=== PATIENT | female | born 1965 | race Caucasian/White ===

== ENCOUNTER → 2016-11-08 | Outpatient (CLI) | payer OTHER ==
[~2016-11-08] MED LIST: ASPI81TA28 PO; BUSP15TA70 PO; CITA40TA12 PO; CYAN10004 PO; DORZ1SOL6 OPL; INSDGI SC; INSUINJ14 SC; LISI10TA PO; METO50TA16 PO; MULT-506 PO; OMEG10007 PO; PRED1SUS3 OPL
[2016-11-08 13:11] LABS: ESTIMATED AVERAGE GLUCOSE 309 mg/dl; HA1C FLAG Normal (Normal)
[2016-11-08 13:16] LABS: ALT/SGPT 87 U/L (12-78); AST/SGOT 59 U/L (15-37); BLOOD UREA NITROGEN 17 mg/dl (7-18); BUN/CREATININE RATIO 24.6 (10-20); CALCIUM 8.5 mg/dl (8.5-10.1); CARBON DIOXIDE 27 mmol/L (21-32); CHLORIDE 104 mmol/L (98-107); GLUCOSE 212 mg/dl (70-99); POTASSIUM 4.1 mmol/L (3.5-5.1); SODIUM 139 mmol/L (136-145)
[2016-11-08 13:19] LABS: ALB/GLOB RATIO 0.7 (0.9-2); ALKALINE PHOSPHATASE 217 U/L (45-117); CHOLESTEROL 207 mg/dl (0-200); CHOLESTEROL/HDL RATIO 6.3; HDL CHOLESTEROL 33 mg/dl; TRIGLYCERIDES 577 mg/dl (0-150)
== END | disposition home or self-care (01) ==
LOC: C.LABPVFM 09:29
PROVIDERS: ATTEND Family Medicine
DX: I10 Essential (primary) hypertension (principal); E10.65 Type 1 diabetes mellitus with hyperglycemia

== ENCOUNTER → 2016-11-17 | Outpatient (CLI) | payer OTHER | END | disposition home or self-care (01) | LOC: C.LABPVFM 09:58 | PROVIDERS: ATTEND Family Medicine | DX: R74.8 Abnormal levels of other serum enzymes (principal) ==

== ENCOUNTER 2017-06-29 12:20 | Inpatient (IN) | payer OTHER ==
[2017-06-29] VITALS (37 sets, daily range): BP systolic 73–132; BP diastolic 50–97; PULSE 88–103; TEMP 36.4–37; O2SAT 2–100; BMI 30.5
[~2017-06-29] VITALS: Ht 160 cm; Wt 79.6 kg
[2017-06-29] MEDS ORDERED: SODIUM CHLORIDE 0.9% 1000ML 1,000 ML IV STA (12:31)
[2017-06-29] MEDS ORDERED: ASPIRIN 324 MG CHEW ONE (12:36)
[2017-06-29] MEDS ORDERED: LISI-725 PO (12:37)
[2017-06-29] MEDS ORDERED: CLOPIDOGREL BISULFATE 300 MG TAB PO ONE (12:37)
[2017-06-29] MEDS ORDERED: NVLGI/PEN SC (12:38)
[2017-06-29] MEDS ORDERED: INSDGI SC (12:38)
[2017-06-29] MEDS ORDERED: MIDAZOLAM HCL 1 MG/ML 2ML VIAL ONE ×4 (12:39→15:33)
[2017-06-29] MEDS ORDERED: FENTANYL CITRATE INJ 50 MCG/1 ML 2 ML VIAL ONE (12:39)
[2017-06-29] MEDS ORDERED: HEPARIN SOD (PORCINE) 1000 UNIT/ML 10 ML VIAL ONE ×2 (12:40→15:14)
[2017-06-29] MEDS ORDERED: NiCARDipine HCL INJ 2.5 MG/ML 10 ML AMP ONE (12:40)
[2017-06-29] MEDS ORDERED: NITROGLYCERIN/D5W 100MCG/ML 20ML SYR ONE (12:42)
[2017-06-29] MEDS ORDERED: NITROGLYCERIN 0.4 MG SL PER TAB CHARGE SL PRN (12:45)
--- NOTE | 2017-06-29 13:14 | DIAGNOSTIC IMAGING REPORT ---
CHEST ONE VIEW PORTABLE CLINICAL HISTORY: Atypical chest pain COMPARISON STUDY: Chest CT dated 09/04/2011 FINDINGS: The heart is normal in size. There are no pleural effusions. There is no lobar consolidation. There is reticulonodular interstitial thickening. IMPRESSION: 1. Interval development of reticulonodular interstitial thickening. This could either be inflammatory, or secondary to mild interstitial pulmonary edema. Clinical and radiographic follow-up is recommended Electronically signed by: Teddy Lynn M.D. 06/29/2017 1:12 PM Dictated Date/Time: 06/29/2017 12:49 PM
[2017-06-29 13:20] LABS: BASO % 0.1 %; BASO ABS # 0.01 K/uL (0-0.2); COMPLETE YES; EOS % 0.7 %; HEMATOCRIT 39.1 % (37-47); IG% 0.4 %; LYMPH % 18.4 %; LYMPH ABS # 2.24 K/uL (1.2-3.4); MEAN CELL VOLUME 94.4 fL (80-100); MEAN CORPUSCULAR HEMOGLOBIN 32.6 pg (25-34); MEAN CORPUSCULAR HGB CONC 34.5 g/dl (32-36); MEAN PLATELET VOLUME 10.3 fL (7.4-10.4); MONO % 4.6 %; NEUT % 75.8 %; PLATELET COUNT 400 K/uL (130-400); RED BLOOD COUNT 4.14 M/uL (4.2-5.4)
[2017-06-29 13:41] LABS: BUN/CREATININE RATIO 25.9 (10-20); CALCIUM 8.8 mg/dl (8.5-10.1); CREATININE 1.11 mg/dl (0.60-1.20); POTASSIUM 4.9 mmol/L (3.5-5.1)
[2017-06-29 13:52] LABS: CKMB/CK RATIO 4.2 (0-3.0)
[2017-06-29] MEDS ORDERED: DOPamine 400MG / 250ML D5W ONE (13:53)
[2017-06-29] MEDS ORDERED: FUROSEMIDE 40 MG/4 ML VIAL ONE (14:19)
[2017-06-29] MEDS ORDERED: ONDANSETRON INJ 2 MG/ML 2 ML VIAL ONE (14:19)
[2017-06-29] MEDS ORDERED: NOREPINEPHRINE BITARTRATE 1 MG/ML 4 ML VIAL IV ONE (14:23)
[2017-06-29] MEDS ORDERED: PROMETHAZINE HCL INJ 25 MG/ML 1 ML VIAL ONE (14:35)
[2017-06-29] MEDS ORDERED: DiphenhydrAMINE HCL 50 MG/ML VIAL ONE (15:23)
[2017-06-29 15:41] LABS: ISTAT ARTERIAL BLOOD GAS HCO3 22 meq/L (19-24); ISTAT ARTERIAL BLOOD GAS PCO2 51 mmHg (35-46); ISTAT ARTERIAL BLOOD GAS PO2 37 mmHg (80-95); ISTAT ARTERIAL BLOOD GAS pH 7.24 (7.35-7.45); ISTAT CARBON DIOXIDE 23 mEq/l (24-31)
[2017-06-29 15:41] LABS: ISTAT ARTERIAL BLOOD GAS HCO3 21 meq/L (19-24); ISTAT ARTERIAL BLOOD GAS PCO2 42 mmHg (35-46); ISTAT ARTERIAL BLOOD GAS PO2 112 mmHg (80-95); ISTAT CARBON DIOXIDE 22 mEq/l (24-31)
[2017-06-29] MEDS ORDERED: ACETAMINOPHEN 325 MG TAB PO PRN (16:30)
[2017-06-29] MEDS ORDERED: ICU PROTOCOL FOR HYPERGLYCEMIA PRN (16:30)
[2017-06-29] MEDS ORDERED: TICAGRELOR 90 MG TAB PO ONE (17:30)
--- NOTE | 2017-06-29 17:38 | EMERGENCY ROOM VISIT NOTE ---
History Report prepared by Ashia: Zack Jacob Under the Supervision of: Dr. Robin Hoskins D.O. First contact with patient: 12:15 Chief Complaint: CHEST PAIN Stated Complaint: CHEST PAIN History of Present Illness The patient is a 52 year old female who presents to the Emergency Room with complaints of constant pinpoint, sharp chest pain that began 9 hours ago. She adds that the symptoms are alleviated when she sleeps on her side and when she is sitting or standing up. Symptoms are exacerbated when pressure is applied. Patient has had two previous cardiac stents placed, both of which were placed in 2005 (LAD and RCA). Patient has associated symptoms of shortness of breath on exertion, pain on the right side, and headache that began 1 day ago. She adds that she had constant ear pain for the past couple days. Pt denies change in vision, fevers, nausea, vomiting, diarrhea, pain with urination, and melena. She states that symptoms are the same as her past cardiac episodes. She states that the shortness of breath is minimal right now. Patient adds that she has no previous brain bleeds or recent surgeries. The patient had an echocardiogram in 2005 which showed normal LV wall thickness , an EF of 25%, and multiple segment hypokinesis all consistent with ischemic heart disease. Source of History: patient Onset: 9 hours ago Position: chest Quality: sharp (Pinpoint) Timing: constant Associated Symptoms: + headache, + SOB, No nausea, No vomiting, No melena, No diarrhea, No urinary symptoms Note: Patient has pain on right side. Review of Systems See HPI for pertinent positives & negatives. A total of 10 systems reviewed and were otherwise negative. Past Medical & Surgical Medical Problems: (1) Anemia (2) Cellulitis and abscess of toe of right foot (3) Diabetes (4) Heart disease (5) HLD (hyperlipidemia) (6) HTN (hypertension) (7) ST elevation (STEMI) myocardial infarction involving left circumflex coronary artery (8) STEMI (ST elevation myocardial infarction) Surgical Problems: (1) S/P right coronary artery (RCA) stent placement Social History Problems: (1) ETOH abuse (2) Smoker Family History Patient reports no known family medical history. Social History Smoking Status: Current Some Day Smoker Alcohol Use: none Marital Status: Current/Historical Medications Scheduled Aspirin (Aspirin Ec), 81 MG PO QAM Buspirone Hcl (Buspar), 15 MG PO TID Citalopram Hydrobromide (Celexa), 40 MG PO QAM Fish Oil (Olanta-3), 1 CAP PO QAM Insulin Aspart (Novolog Flexpen), SC TIDM Insulin Glargine (Lantus), 55 UNITS SC BID Lisinopril (Prinivil), 10 MG PO QAM Lisinopril (Zestril), 20 MG PO DAILY Metoprolol Tartrate (Lopressor) (Lopressor), 50 MG PO BID Multivitamin (Multivitamin), 1 TAB PO QAM Allergies Coded Allergies: Penicillins (Verified Allergy, Intermediate, ITCHY RASH ALL OVER BODY, ) Physical Exam Vital Signs Date Time Temp Pulse Resp B/P (MAP) Pulse Ox O2 Delivery O2 Flow Rate FiO2 06/29/17 16:15 36.4 91 16 110/69 100 BiPAP 70 06/29/17 15:43 111 18 152/95 (114) 98 BiPAP 100 06/29/17 15:23 111 18 128/93 (105) 98 BiPAP 100 06/29/17 14:50 94 100 06/29/17 12:54 36.8 102 21 110/73 93 06/29/17 12:48 110/73 06/29/17 12:46 114/70 06/29/17 12:45 102 21 93 06/29/17 12:41 114/79 06/29/17 12:40 101 18 96 06/29/17 12:35 101 23 96 06/29/17 12:32 36.8 102 14 117/75 96 Room Air 06/29/17 12:32 96 Room Air 06/29/17 12:32 96 Room Air 06/29/17 12:30 104 20 97 06/29/17 12:30 104 06/29/17 12:28 117/75 Physical Exam GENERAL: Sitting up in bed, alert, slightly ill-appearing, well nourished, no distress, non-toxic EYE EXAM: normal conjunctiva. OROPHARYNX: no exudate, no erythema, lips, buccal mucosa, and tongue normal and mucous membranes are moist NECK: supple, no nuchal rigidity, no adenopathy, non-tender LUNGS: Clear to auscultation. Normal chest wall mechanics CHEST: Right reproducible right chest wall pain HEART: no murmurs, S1 normal and S2 normal ABDOMEN: abdomen soft, non-tender, normo-active bowel sounds, no masses, no rebound or guarding. BACK: Back is symmetrical on inspection and there is no deformity, no midline tenderness, no CVA tenderness. SKIN: no rashes and no bruising UPPER EXTREMITIES: upper extremities are grossly normal. LOWER EXTREMITIES: No pitting edema. Calfs equal bilateral NEURO EXAM: Normal sensorium, cranial nerves II-XII grossly intact, normal speech, no gross weakness of arms, no gross weakness of legs. Medical Decision & Procedures ER Provider Diagnostic Interpretation: Radiology results as stated below per my review and the radiologist's interpretation: CHEST ONE VIEW PORTABLE CLINICAL HISTORY: Atypical chest pain COMPARISON STUDY: Chest CT dated 09/04/2011 FINDINGS: The heart is normal in size. There are no pleural effusions. There is no lobar consolidation. There is reticulonodular interstitial thickening. IMPRESSION: 1. Interval development of reticulonodular interstitial thickening. This could either be inflammatory, or secondary to mild interstitial pulmonary edema. Clinical and radiographic follow-up is recommended Electronically signed by: Teddy Lynn M.D. 06/29/2017 1:12 PM Laboratory Results 06/29/17 12:06 Red Blood Count 4.14, Mean Corpuscular Volume 94.4, Mean Corpuscular Hemoglobin 32.6, Mean Corpuscular Hemoglobin Concent 34.5, Mean Platelet Volume 10.3, Neutrophils (%) (Auto) 75.8, Lymphocytes (%) (Auto) 18.4, Monocytes (%) (Auto) 4.6, Eosinophils (%) (Auto) 0.7, Basophils (%) (Auto) 0.1, Neutrophils # (Auto) 9.25, Lymphocytes # (Auto) 2.24, Monocytes # (Auto) 0.56, Eosinophils # (Auto) 0.09, Basophils # (Auto) 0.01 06/29/17 12:06 Test 06/29/17 12:06 06/29/17 15:18 06/29/17 15:26 White Blood Count 12.20 K/uL (4.8-10.8) Red Blood Count 4.14 M/uL (4.2-5.4) Hemoglobin 13.5 g/dL (12.0-16.0) Hematocrit 39.1 % (37-47) Mean Corpuscular Volume 94.4 fL (80-100) Mean Corpuscular Hemoglobin 32.6 pg (25-34) Mean Corpuscular Hemoglobin Concent 34.5 g/dl (32-36) Platelet Count 400 K/uL (130-400) Mean Platelet Volume 10.3 fL (7.4-10.4) Neutrophils (%) (Auto) 75.8 % Lymphocytes (%) (Auto) 18.4 % Monocytes (%) (Auto) 4.6 % Eosinophils (%) (Auto) 0.7 % Basophils (%) (Auto) 0.1 % Neutrophils # (Auto) 9.25 K/uL (1.4-6.5) Lymphocytes # (Auto) 2.24 K/uL (1.2-3.4) Monocytes # (Auto) 0.56 K/uL (0.11-0.59) Eosinophils # (Auto) 0.09 K/uL (0-0.5) Basophils # (Auto) 0.01 K/uL (0-0.2) RDW Standard Deviation 44.2 fL (36.4-46.3) RDW Coefficient of Variation 12.8 % (11.5-14.5) Immature Granulocyte % (Auto) 0.4 % Immature Granulocyte # (Auto) 0.05 K/uL (0.00-0.02) Anion Gap 9.0 mmol/L (3-11) Est Creatinine Clear Calc Drug Dose 58.0 ml/min Estimated GFR () 65.7 Estimated GFR (Non- 56.7 BUN/Creatinine Ratio 25.9 (10-20) Calcium Level 8.8 mg/dl (8.5-10.1) Total Creatine Kinase 737 U/L (26-192) Creatine Kinase MB 30.8 ng/ml (0.5-3.6) Creatine Kinase MB Ratio 4.2 (0-3.0) Troponin I 28.000 ng/ml (0-0.045) Kaolin Activated Coagulation Time 285 SECONDS (94-140) Bedside Blood Gas pH (LAB) 7.30 (7.35-7.45) Bedside Blood Gas pCO2 (LAB) 42 mmHg (35-46) Bedside Blood Gas pO2 (LAB) 112 mmHg (80-95) Bedside Blood Gas HCO3 (LAB) 21 meq/L (19-24) Bedside Blood Gas Total CO2 22 mEq/l (24-31) Bedside Blood Gas Base Excess (LAB) -6.0 meq/L (-9-1.8) Bedside Blood Gas O2 Saturation 98.0 % (90-95) Date/Time Source Procedure Growth Status 06/29/17 16:00 Nasal MRSA DNA Surveillance Screen - Final Specimen Negative for MRSA by DNA Probe Complete Laboratory results per my review. Medications Administered Medications (Trade) Dose Ordered Sig/Mehul Route Start Time Stop Time Status Last Admin Dose Admin Nitroglycerin (Nitrostat Tab) 0.4 mg Q5M PRN SL 06/29/17 12:45 06/29/17 17:01 DC 06/29/17 12:40 0.4 MG Sodium Chloride 1,000 ml @ 999 mls/hr Q1H1M STAT IV 06/29/17 12:31 06/29/17 13:31 DC 06/29/17 12:43 999 MLS/HR Aspirin (Aspirin Chew) 324 mg STK-MED ONCE .ROUTE 06/29/17 12:36 06/29/17 12:37 DC 06/29/17 12:36 324 MG Midazolam HCl (Versed Inj) 2 mg STK-MED ONCE .ROUTE 06/29/17 12:39 06/29/17 12:40 DC 06/29/17 12:39 1 MG Fentanyl Citrate (Fentanyl Inj) 100 mcg STK-MED ONCE .ROUTE 06/29/17 12:39 06/29/17 12:40 DC 06/29/17 12:39 50 MCG Heparin Sodium (Porcine) (Heparin Iv Bolus) 10,000 unit STK-MED ONCE .ROUTE 06/29/17 12:40 06/29/17 12:41 DC 06/29/17 12:40 10,000 UNIT Dopamine HCl/ Dextrose (DOPamine 400MG / D5W) 400 mg STK-MED ONCE .ROUTE 06/29/17 13:53 06/29/17 13:54 DC 06/29/17 13:53 400 MG Ondansetron HCl (Zofran Inj) 8 mg STK-MED ONCE .ROUTE 06/29/17 14:19 06/29/17 14:20 DC 06/29/17 14:19 8 MG Furosemide (Lasix Inj) 40 mg STK-MED ONCE .ROUTE 06/29/17 14:19 06/29/17 14:20 DC 06/29/17 14:19 40 MG Norepinephrine Bitartrate (Levophed Inj) 8 mg STK-MED ONCE IV 06/29/17 14:23 06/29/17 14:24 DC 06/29/17 14:23 8 MG Promethazine HCl (Phenergan Inj) 25 mg STK-MED ONCE .ROUTE 06/29/17 14:35 06/29/17 14:36 DC 06/29/17 14:35 25 MG Midazolam HCl (Versed Inj) 2 mg STK-MED ONCE .ROUTE 06/29/17 14:53 06/29/17 14:54 DC 06/29/17 14:53 2 MG Heparin Sodium (Porcine) (Heparin Iv Bolus) 10,000 unit STK-MED ONCE .ROUTE 06/29/17 15:14 06/29/17 15:15 DC 06/29/17 15:14 3,000 UNIT Midazolam HCl (Versed Inj) 2 mg STK-MED ONCE .ROUTE 06/29/17 15:24 06/29/17 15:25 DC 06/29/17 15:24 2 MG Midazolam HCl (Versed Inj) 2 mg STK-MED ONCE .ROUTE 06/29/17 15:33 06/29/17 15:34 DC 06/29/17 15:33 2 MG ECG Indication: chest pain Rate (beats per minute): 101 Rhythm: sinus tachycardia Findings: ST depression (diffuse), ST elevation (Inferior) ED Course ED COURSE: Vital signs were reviewed and appeared normal. The patients medical record was reviewed The above diagnostic studies were performed and reviewed. ED treatments and interventions as stated above. 1222: The patient was evaluated in room B4. A complete history and physical examination was performed. 1231: Sodium Chloride 1000 ml @ 999 mls/hr IV 1237: Aspirin 324mg route, plavix tab 600mg PO 1239: Fentanyl Inj 100mcg route, Versed Inj 2mg route 1241: Cardene IV 25mg route, Heparin IV Bolus 10,000 unit route, Heparin Sod/Ns 2 Units/NJ route 1242: Nitroglycerin 2000mcg route 1245: Nitrostat Tab 0.4mg prn 1248: Upon reevaluation, the patient will be further evaluated.I discussed my findings with the patient and she understands and agrees with the treatment plan. Based on the patients age, coexisting illnesses, exam and lab findings the decision to treat as an inpatient was made. The patient remained stable while under my care. The patient will be evaluated for further management. Medical Decision Differential diagnoses includes but is not limited to acute coronary syndrome, myocardial infarction, pericarditis, pulmonary embolus, aortic dissection, pneumonia, pneumothorax, musculoskeletal, shingles, esophageal. Patient is a 52-year-old female with past medical history of 2 previous stents and an [place] who presents to ER for PCPs office for chest pain and shortness of breath. I received call from the PCP for new EKG changes. Upon arrival to the ER it showed ST segment elevations in the inferior leads along with diffuse depressions. I reviewed an old EKG. This is all new. A STEMI alert was called. Patient was evaluated at bedside by interventional cardiology. CBC was not resulted but eventually showed a mild leukocytosis. BMP was unremarkable. Troponin was elevated at 28. Chest x-ray was fairly unremarkable. Patient was given 1 nitroglycerin along with a bolus of normal saline. Patient was taken directly to the Corporate Safety Coordinator for her ST segment elevation [place]. Medication Reconcilliation Current Medication List: was personally reviewed by me Blood Pressure Screening Patient's blood pressure: Normal blood pressure Blood pressure disposition: Did not require urgent referral Consults Time Called: 1241 Consulting Physician: Dr. Oj Kinney - Cardiology Returned Call: 1246 I reviewed the patient's case with Dr. Oj Kinney. He will take the patient to the label stamper. Impression Primary Impression: STEMI (ST elevation myocardial infarction) Critical Care I have personally spent 35 minutes of critical care time in the direct management of this patient. This includes bedside care, interpretation of diagnostic studies, and testing, discussion with consultants, patient, and family members, and other required patient management activities. This 35 minutes is in excess of all separately billable procedures. Scribe Attestation The scribe's documentation has been prepared under my direction and personally reviewed by me in its entirety. I confirm that the note above accurately reflects all work, treatment, procedures, and medical decision making performed by me. Departure Information Dispostion Being Evaluated By Hospitalist Referrals Ace Hayes M.D. (PCP) Forms Call Back Authorization, HOME CARE DOCUMENTATION FORM, IMPORTANT VISIT INFORMATION Patient Instructions My [facility] Problem Qualifiers Primary Impression: STEMI (ST elevation myocardial infarction) Involved coronary artery: unspecified coronary artery Qualified Codes: I21.3 - ST elevation (STEMI) myocardial infarction of unspecified site
[2017-06-29] MEDS: NOREPINEPHRINE BIT INJ 8 MG in DEXTROSE 5% 500ML 500 ML IV PRN (17:58)
[2017-06-29] MEDS ORDERED: INSULIN PROTOCOL GOAL RANGE ONE (18:00)
--- NOTE | 2017-06-29 18:15 | History and Physical ---
History & Physical Date & Time of Service: Jun 29, 2017 at 16:57 Chief Complaint: Stemi, St Elevation Myocardial Infarction.. Primary Care Physician: Ace Hayes M.D. History of Present Illness Source: family, spouse Chest pain starting last night, sob and difficulty sleeping. This morning she had increased pain and sob so she came to the ED. In the ED she was a heart alert and taken to the laboratory machinist where she received two stents to her circumflex. Per nursing she began vomiting on the cath table and was given Phenergan, after which she became combative and had to be restrained. She became hypoxic and was placed on bipap and given lasix and sent to ICU where she remains on pressor support. ROS Constitutional: no chills, aches, sweats or fever Respiratory: see HPI Cardiac:see HPI GI: no abdominal pain, nausea, vomiting, diarrhea or constipation : no dysuria or hesitancy Extremities: no joint pain or weakness Skin: no rash Other systems reviewed and negative Pmhx: CAD, DM, anemia, ETOH abuse (quit 11 years ago), 2005 stent to the RCA and LAD, anemia, HTN, HLD, Past Medical/Surgical History Medical Problems: (1) Diabetes Status: Chronic (2) Heart disease Status: Chronic Family History Patient reports no known family medical history. 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) Immunizations History of Influenza Vaccine: Yes Influenza Vaccine Date: May 11, 2005 History of Tetanus Vaccine?: Unknown History of Pneumococcal: Yes Pneumococcal Date: May 11, 2001 History of Hepatitis B Vaccine: No Multi-Drug Resistant Organisms History of MDRO: No Allergies Coded Allergies: Penicillins (Verified Allergy, Intermediate, ITCHY RASH ALL OVER BODY, ) Home Medications Scheduled Aspirin (Aspirin Ec), 81 MG PO QAM Buspirone Hcl (Buspar), 15 MG PO TID Citalopram Hydrobromide (Celexa), 40 MG PO QAM Fish Oil ([place]-3), 1 CAP PO QAM Insulin Aspart (Novolog Flexpen), SC TIDM Insulin Glargine (Lantus), 55 UNITS SC BID Lisinopril (Prinivil), 10 MG PO QAM Lisinopril (Zestril), 20 MG PO DAILY Metoprolol Tartrate (Lopressor) (Lopressor), 50 MG PO BID Multivitamin (Multivitamin), 1 TAB PO QAM Physical Exam Vital Signs Date Time Temp Pulse Resp B/P (MAP) Pulse Ox O2 Delivery O2 Flow Rate FiO2 06/29/17 16:15 36.4 91 16 110/69 100 BiPAP 70 06/29/17 15:43 111 18 152/95 (114) 98 BiPAP 100 06/29/17 15:23 111 18 128/93 (105) 98 BiPAP 100 06/29/17 14:50 94 100 06/29/17 12:54 36.8 102 21 110/73 93 06/29/17 12:48 110/73 06/29/17 12:46 114/70 06/29/17 12:45 102 21 93 06/29/17 12:41 114/79 06/29/17 12:40 101 18 96 06/29/17 12:35 101 23 96 06/29/17 12:32 36.8 102 14 117/75 96 Room Air 06/29/17 12:32 96 Room Air 06/29/17 12:32 96 Room Air 06/29/17 12:30 104 20 97 06/29/17 12:30 104 06/29/17 12:28 117/75 General: no distress Eyes: normal inspection, PERLL Respiratory: chest non tender, course breath sounds left base, on bipap Cardiac: regular rate and rhythm, no rub or gallop, no murmur, no edema, no jvd GI/: active bowel sounds, no abd pain or tenderness, soft, non distended Extremities: normal range of motion, normal strength, non tender Neuro/Psych: alert and oriented x 3, normal mood and affect Skin: normal color, dry Diagnostics Laboratory Results Results Past 24 Hours Test 06/29/17 12:06 06/29/17 13:19 06/29/17 14:03 06/29/17 15:11 Range/Units White Blood Count 12.20 4.8-10.8 K/uL Red Blood Count 4.14 4.2-5.4 M/uL Hemoglobin 13.5 12.0-16.0 g/dL Hematocrit 39.1 37-47 % Mean Corpuscular Volume 94.4 80-100 fL Mean Corpuscular Hemoglobin 32.6 25-34 pg Mean Corpuscular Hemoglobin Concent 34.5 32-36 g/dl Platelet Count 400 130-400 K/uL Mean Platelet Volume 10.3 7.4-10.4 fL Neutrophils (%) (Auto) 75.8 % Lymphocytes (%) (Auto) 18.4 % Monocytes (%) (Auto) 4.6 % Eosinophils (%) (Auto) 0.7 % Basophils (%) (Auto) 0.1 % Neutrophils # (Auto) 9.25 1.4-6.5 K/uL Lymphocytes # (Auto) 2.24 1.2-3.4 K/uL Monocytes # (Auto) 0.56 0.11-0.59 K/uL Eosinophils # (Auto) 0.09 0-0.5 K/uL Basophils # (Auto) 0.01 0-0.2 K/uL RDW Standard Deviation 44.2 36.4-46.3 fL RDW Coefficient of Variation 12.8 11.5-14.5 % Immature Granulocyte % (Auto) 0.4 % Immature Granulocyte # (Auto) 0.05 0.00-0.02 K/uL Sodium Level 132 136-145 mmol/L Potassium Level 4.9 3.5-5.1 mmol/L Chloride Level 101 98-107 mmol/L Carbon Dioxide Level 22 21-32 mmol/L Anion Gap 9.0 3-11 mmol/L Blood Urea Nitrogen 29 7-18 mg/dl Creatinine 1.11 0.60-1.20 mg/dl Est Creatinine Clear Calc Drug Dose 58.0 ml/min Estimated GFR () 65.7 Estimated GFR (Non- 56.7 BUN/Creatinine Ratio 25.9 10-20 Random Glucose 248 70-99 mg/dl Calcium Level 8.8 8.5-10.1 mg/dl Total Creatine Kinase 737 26-192 U/L Creatine Kinase MB 30.8 0.5-3.6 ng/ml Creatine Kinase MB Ratio 4.2 0-3.0 Troponin I 28.000 0-0.045 ng/ml Kaolin Activated Coagulation Time 241 235 94-140 SECONDS Bedside Blood Gas pH (LAB) 7.24 7.35-7.45 Bedside Blood Gas pCO2 (LAB) 51 35-46 mmHg Bedside Blood Gas pO2 (LAB) 37 80-95 mmHg Bedside Blood Gas HCO3 (LAB) 22 19-24 meq/L Bedside Blood Gas Total CO2 23 24-31 mEq/l Bedside Blood Gas Base Excess (LAB) -6.0 -9-1.8 meq/L Bedside Blood Gas O2 Saturation 60.0 90-95 % Test 06/29/17 15:18 06/29/17 15:26 06/29/17 16:27 Range/Units Kaolin Activated Coagulation Time 285 94-140 SECONDS Bedside Blood Gas pH (LAB) 7.30 7.35-7.45 Bedside Blood Gas pCO2 (LAB) 42 35-46 mmHg Bedside Blood Gas pO2 (LAB) 112 80-95 mmHg Bedside Blood Gas HCO3 (LAB) 21 19-24 meq/L Bedside Blood Gas Total CO2 22 24-31 mEq/l Bedside Blood Gas Base Excess (LAB) -6.0 -9-1.8 meq/L Bedside Blood Gas O2 Saturation 98.0 90-95 % Microbiology Results 06/29/17 MRSA DNA Surveillance Screen, Received Pending Diagnostic Radiology CHEST ONE VIEW PORTABLE CLINICAL HISTORY: Atypical chest pain COMPARISON STUDY: Chest CT dated 09/04/2011 FINDINGS: The heart is normal in size. There are no pleural effusions. There is no lobar consolidation. There is reticulonodular interstitial thickening. IMPRESSION: 1. Interval development of reticulonodular interstitial thickening. This could either be inflammatory, or secondary to mild interstitial pulmonary edema. Clinical and radiographic follow-up is recommended EKG Sinus tachycardia ST depression, consider subendocardial injury Nonspecific T wave abnormality Abnormal ECG When compared with ECG of 24-FEB-2009 18:29, QRS duration has increased ST now depressed in Anterolateral leads QT has lengthened Confirmed by IVETH AMAYA ([id number]) on 06/29/2017 3:37:19 PM Impression Assessment and Plan Ms. Eaton is a 52 year old woman here for STEMI with occlusion to her circumflex. Pmhx: CAD, DM, anemia, ETOH abuse (quit 11 years ago), 2006 stent to the RCA and LAD, anemia, HTN, HLD, Heart alert s/p stent x2 in circumflex, STEMI - admit ICU - post cath 06/29 - consult citizen participation specialist, cardiology - continue Integrillin, Brilinta, ASA, statin, per cardiology recs - EKG with chest pain - trend troponins Hypotension - continue Levophed per ICU management - hold on fluid resuscitation for now given need for diuretics after cath Hypoxic respiratory failure secondary to aspiration vs fluid overload - continue bipap, wean as tolerated - strict Is&Os, daily weights - if patient becomes febrile, may need to initiate abx HTN - continue metoprolol when off pressors - hold LAURENCE until cardiology recommends restart and patient off pressors DM - ss, lantus - bsgs ac&hs Anemia - monitor cbc Level of Care Critical Care Advanced Directives Existing Advance Directive: No Existing Living Will: No Existing Power of Credentialing Coordinator: No Existing Health Care Proxy: No Resuscitation Status FULL RESUSCITATION VTE Prophylaxis VTE Risk Assessment Done? Y/N: Yes Risk Level: Moderate Given or contraindicated: Other Anticoagulation Reviewed: Pt Seen/Exam by Me History APPRENTICE ARCHITECT Supervision Note: I interviewed and examined the patient. Discussed with ARIANA Valentin and agree with findings and plan as documented in the note. Any exceptions or clarifications are listed here: Patient is a 52-year-old female with a history of diabetes mellitus type 1, CAD status post stent to the RCA and LAD in 2005, peripheral arterial disease, anemia, current smoker, hypertension, and depression/anxiety, who presented with shortness of breath 24 hours with some right-sided chest pain and was found to have an ST elevation in the inferior leads, and diffuse ST depression in all the other leads. A heart alert was called and she was taken to the In Store Representative where she had 2 stents placed in the circumflex. During the procedure, she vomited and was given Phenergan. Shortly after this she became combative and had a change in her mental status. She also became hypoxic and required administration of BiPAP as well as some IV Lasix. She also was hypotensive requiring levophed on which she still remains. A bedside echocardiogram showed normal function of the left ventricle and no pericardial effusion as per the project coordinator. I discussed the case with the project coordinator and the citizen participation specialist consulted at the time of my examination. An ABG was done which showed pH 7.24/ PaCO2 51/PA O2 37. She was transferred to the ICU due to her critical condition. She remains on an Integrilin drip. At the time I saw her, she was reportedly tired but would wake up and answer my questions. She denied any chest pain or any complaints at all. Chest x-ray upon admission showed reticulonodular opacities possibly consistent with pulmonary edema Vitals reviewed No acute distress, lying in bed with BiPAP mask in place Regular rate and rhythm, no murmurs, rubs Lungs clear to auscultation laterally, no wheezes crackles or rhonchi. Abdomen positive bowel sounds soft nontender nondistended Extremities right wrist with TR band in place and no active bleeding, trace pitting edema in the legs bilaterally, 1+ dorsalis pedis pulses bilaterally Labs and rads all reviewed, ECG reviewed as above in history of present illness 52-year-old female with a history of diabetes, hypertension, CAD, current smoker , PAD, depression/anxiety, here with STEMI now status post stent placement to the circumflex artery. Also with acute hypoxemic and hypercapnic respiratory failure and hypotension after episode of vomiting with administration of Phenergan. -CAD and stent to be managed as per cardiology-aspirin, Brilllinta, high intensity statin which she was not on at home, eventually on a beta derick and LAURENCE inhibitor -Should have formal echo tomorrow, will trend troponins until they peak-first troponin was 28 -Wean off BiPAP as tolerated -Check chest x-ray if develops increased secretions or fevers to look for evidence of aspiration pneumonia-no antibiotics needed at this time -Wean off Levophed-it is unclear why she is hypotensive as her cardiac output is reportedly normal as per cardiology, there is no evidence of sepsis. Will defer management to citizen participation specialist -She has hyperglycemia-was started on an insulin drip and will eventually wean off of that on to her Lantus with short acting coverage with meals when she is eating again -Remains on extended Integrilin drip, therefore will not give further DVT prophylaxis other than SCDs Documented By: Sabina Miller
[2017-06-29] MEDS ORDERED: EPTIFIBATIDE BOLUS / DRIP IV STA (18:21)
[2017-06-29] MEDS ORDERED: INSULIN IV INFUSION PROTOCOL SCH (18:30)
[2017-06-29] MEDS ORDERED: NovoLIN R BOLUS FROM BAG IV ONE (18:45)
[2017-06-29] MEDS ORDERED: INSULIN REGULAR 250 UNITS in SODIUM CHLORIDE 0.9% 250ML 250 ML IV SCH (18:45)
[2017-06-29] MEDS: EPTIFIBATIDE INJ 75 MG PREMIXED IV SCH ×2 (18:46→20:45)
--- NOTE | 2017-06-29 19:35 | Critical Care Consultation ---
Critical Care Consultation Date of Consultation: Jun 29, 2017. 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 She had previously received cardiac stents in 2005. Today she presented to her family practice physician with complaints of right-sided jaw pain times several days as well as chest pain with heaviness since yesterday accompanied with shortness of breath on exertion. At that time an EKG was performed that revealed ST elevation patient was transferred via EMS to the emergency department and given 325 mg of by mouth aspirin. Repeat EKG in the hospital emergency department demonstrated ST elevations in the anterior lateral leads patient was taken by Dr. Kinney for cardiac cath. During the cath patient complained of increasing chest pain and nausea she was given both Reglan and Phenergan as well as sedatives. During the she became hypoxic and altered. She was placed on BiPAP and there was concern that the patient would need intubation. However patient began to arouse but was still hypotensive requiring levo fed. Patient left the Ornamental Plaster Sticker with a right femoral triple line catheter in place as well as a right TR band secondary to right radial approach. Per my conversation with Dr. Kinney patient received 2 ASHLEY stents to the circumflex. He believes that this is a cute on chronic as there were multiple collaterals in place; however, he does state that there is a significant low flow state in the coronary arteries and thus he is recommending an extended period of Integrilin transfusion at [address] Kinney PCI Summary: " 1. Inferior STEMI/Occluded distal circumflex 2. Mult-vessel coronary artery disease - Diffuse mid RCA disease with 95% focal stenosis proximal to prior stent - 40% ISR of mid LAD stent 3. Cardiogenic/drug-induced shock 4. Acute decompensated heart failure 5. PCI of distal circumflex with 2 overlapping ASHLEY ( 2.5 x 30, 2.25 x 30 [place]) - Procedure complicated by coronary no-reflow with ending LAMONTE 2 flow" Upon my examination patient was sleeping when I enter the room on her BiPAP. 's sister were at bedside. Patient aroused easily and answered questions appropriately. She is without chest pain, nausea, jaw pain, dyspnea or shortness of breath. She states that she has no dizziness, lightheadedness, change in vision. She does not feel feverish or chilled. She is without abdominal symptoms, or recent bowel or bladder changes. She notes no numbness or tingling. Past Medical/Surgical History Medical Problems: Anemia Cellulitis and abscess of toe of right foot CAD Diabetes Depression/Anxiety HLD (hyperlipidemia) HTN (hypertension) ST elevation (STEMI) myocardial infarction involving left circumflex coronary artery Surgical Problems: S/P right coronary artery (RCA) stent placement Hysterectomy Family History Patient reports no known family medical history. 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) Allergies Coded Allergies: Penicillins (Verified Allergy, Intermediate, ITCHY RASH ALL OVER BODY, ) Home Medications Scheduled Aspirin (Aspirin Ec), 81 MG PO QAM Buspirone Hcl (Buspar), 15 MG PO TID Citalopram Hydrobromide (Celexa), 40 MG PO QAM Fish Oil ([place]-3), 1 CAP PO QAM Insulin Aspart (Novolog Flexpen), SC TIDM Insulin Glargine (Lantus), 55 UNITS SC BID Lisinopril (Prinivil), 10 MG PO QAM Lisinopril (Zestril), 20 MG PO DAILY Metoprolol Tartrate (Lopressor) (Lopressor), 50 MG PO BID Multivitamin (Multivitamin), 1 TAB PO QAM Current Inpatient Medications Current Inpatient Medications Medications (Trade) Dose Ordered Sig/Mehul Route Start Time Stop Time Status Last Admin Dose Admin Aspirin (Ecotrin Tab) 81 mg QAM PO 06/30/17 09:00 07/30/17 08:59 Atorvastatin Calcium (Lipitor Tab) 80 mg QAM PO 06/30/17 09:00 07/30/17 08:59 Ticagrelor (Brilinta Tab) 90 mg BID PO 06/30/17 07:00 07/30/17 06:59 Acetaminophen (Tylenol Tab) 650 mg Q4H PRN PO 06/29/17 16:30 07/29/17 16:29 Miscellaneous Information (Icu Protocol For Hyperglycemia) 1 ea PRN PRN N/A 06/29/17 16:30 07/01/17 16:29 Norepinephrine Bitartrate 8 mg/ Dextrose 508 ml @ 0 mls/hr Q0M PRN IV 06/29/17 17:48 07/29/17 17:47 06/29/17 17:58 29.3 MLS/HR Insulin Aspart (novoLOG ASPART) SLIDING SCALE PCHS SC 06/29/17 21:00 07/29/17 20:59 Buspirone HCl (BusPAR TAB) 15 mg TID PO 06/29/17 21:00 07/29/17 20:59 Citalopram Hydrobromide (celeXA TAB) 40 mg QAM PO 06/30/17 09:00 07/30/17 08:59 Insulin Glargine (Lantus Solostar Pen) 55 units BID SC 06/29/17 21:00 07/29/17 20:59 Metoprolol Tartrate (Lopressor Tab) 50 mg BID PO 06/29/17 21:00 07/29/17 20:59 Future Hold Multivitamins (Multivitamin Tab) 1 tab QAM PO 06/30/17 09:00 07/30/17 08:59 Insulin Human Regular 250 units/ Sodium Chloride 252.5 ml @ 0 mls/hr Q24H IV 06/29/17 18:45 07/29/17 18:44 06/29/17 18:45 2.9 MLS/HR Eptifibatide 100 ml @ 12 mls/hr Q8H20M IV 06/29/17 18:45 06/30/17 10:00 06/29/17 18:46 12 MLS/HR Miscellaneous (Stop Order) 1 ea TODAY@1000 N/A 06/30/17 10:00 06/30/17 10:01 Review of Systems 12 systems reviewed and negative other than previously mentioned in the HPI. Physical Exam Date Time Temp Pulse Resp B/P (MAP) Pulse Ox O2 Delivery O2 Flow Rate FiO2 06/29/17 19:11 100 40 06/29/17 18:02 103 27 132/97 (109) 100 06/29/17 18:00 102 17 100 06/29/17 17:46 100 17 73/50 (58) 100 06/29/17 17:45 99 21 100 06/29/17 17:31 97 17 83/61 (68) 100 12/20/17 17:30 96 18 100 06/29/17 17:16 98 21 119/75 (90) 100 06/29/17 17:15 97 19 100 06/29/17 17:01 98 21 108/71 (83) 100 06/29/17 17:00 96 21 100 06/29/17 17:00 97 60 06/29/17 16:46 88 16 96/65 (75) 100 06/29/17 16:45 89 18 100 06/29/17 16:31 91 16 100/64 (76) 99 06/29/17 16:30 92 16 94 06/29/17 16:16 93 16 94/65 (75) 98 06/29/17 16:15 36.4 91 16 110/69 100 BiPAP 70 06/29/17 16:01 122/85 (97) 06/29/17 15:43 111 18 152/95 (114) 98 BiPAP 100 06/29/17 15:23 111 18 128/93 (105) 98 BiPAP 100 06/29/17 14:50 94 100 06/29/17 12:54 36.8 102 21 110/73 93 06/29/17 12:48 110/73 06/29/17 12:46 114/70 06/29/17 12:45 102 21 93 06/29/17 12:41 114/79 06/29/17 12:40 101 18 96 06/29/17 12:35 101 23 96 06/29/17 12:32 36.8 102 14 117/75 96 Room Air 06/29/17 12:32 96 Room Air 06/29/17 12:32 96 Room Air 06/29/17 12:30 104 20 97 06/29/17 12:30 104 06/29/17 12:28 117/75 Vital Signs - as noted Laboratory Data - as noted Physical Exam: General - Sleeping on entering Eyes - PERRL, EOMI No icterus, gaze conjugate ENT - Mucosa dry, BiPap mask in place Neck - Supple, trachea midline, no masses or lymphadenopathy, no JVD or bruits Lungs - No paradoxical chest wall movement, clear to auscultation bilaterally, no wheezes, rales, or rhonchi Heart - Reg rate and rhythm, No murmur, rubs, clicks, or gallops appreciated Abdomen - BS present, no bruits noted, tympanic to percussion, soft, nontender, nondistended, no organomegaly Extremities - No edema, pedal pulses intact, multiple sores dry and intact and scars on shins Neuro - A&OX4 Strength extremities equal and appropriate bilaterally Reflexes: normal and equal CN:PERRL, EOMI, no facial asymmetry, uvula/tongue midline Laboratory Results Last 24 Hours Test 06/29/17 12:06 06/29/17 13:19 06/29/17 14:03 06/29/17 15:11 White Blood Count 12.20 K/uL Red Blood Count 4.14 M/uL Hemoglobin 13.5 g/dL Hematocrit 39.1 % Mean Corpuscular Volume 94.4 fL Mean Corpuscular Hemoglobin 32.6 pg Mean Corpuscular Hemoglobin Concent 34.5 g/dl Platelet Count 400 K/uL Mean Platelet Volume 10.3 fL Neutrophils (%) (Auto) 75.8 % Lymphocytes (%) (Auto) 18.4 % Monocytes (%) (Auto) 4.6 % Eosinophils (%) (Auto) 0.7 % Basophils (%) (Auto) 0.1 % Neutrophils # (Auto) 9.25 K/uL Lymphocytes # (Auto) 2.24 K/uL Monocytes # (Auto) 0.56 K/uL Eosinophils # (Auto) 0.09 K/uL Basophils # (Auto) 0.01 K/uL RDW Standard Deviation 44.2 fL RDW Coefficient of Variation 12.8 % Immature Granulocyte % (Auto) 0.4 % Immature Granulocyte # (Auto) 0.05 K/uL Sodium Level 132 mmol/L Potassium Level 4.9 mmol/L Chloride Level 101 mmol/L Carbon Dioxide Level 22 mmol/L Anion Gap 9.0 mmol/L Blood Urea Nitrogen 29 mg/dl Creatinine 1.11 mg/dl Est Creatinine Clear Calc Drug Dose 58.0 ml/min Estimated GFR () 65.7 Estimated GFR (Non- 56.7 BUN/Creatinine Ratio 25.9 Random Glucose 248 mg/dl Calcium Level 8.8 mg/dl Total Creatine Kinase 737 U/L Creatine Kinase MB 30.8 ng/ml Creatine Kinase MB Ratio 4.2 Troponin I 28.000 ng/ml Hepatitis C Antibody NEG Kaolin Activated Coagulation Time 241 SECONDS 235 SECONDS Bedside Blood Gas pH (LAB) 7.24 Bedside Blood Gas pCO2 (LAB) 51 mmHg Bedside Blood Gas pO2 (LAB) 37 mmHg Bedside Blood Gas HCO3 (LAB) 22 meq/L Bedside Blood Gas Total CO2 23 mEq/l Bedside Blood Gas Base Excess (LAB) -6.0 meq/L Bedside Blood Gas O2 Saturation 60.0 % Test 06/29/17 15:18 06/29/17 15:26 06/29/17 17:26 Kaolin Activated Coagulation Time 285 SECONDS Bedside Blood Gas pH (LAB) 7.30 Bedside Blood Gas pCO2 (LAB) 42 mmHg Bedside Blood Gas pO2 (LAB) 112 mmHg Bedside Blood Gas HCO3 (LAB) 21 meq/L Bedside Blood Gas Total CO2 22 mEq/l Bedside Blood Gas Base Excess (LAB) -6.0 meq/L Bedside Blood Gas O2 Saturation 98.0 % Bedside Glucose 342 mg/dl Diagnostic Results CHEST ONE VIEW PORTABLE CLINICAL HISTORY: Atypical chest pain COMPARISON STUDY: Chest CT dated 09/04/2011 FINDINGS: The heart is normal in size. There are no pleural effusions. There is no lobar consolidation. There is reticulonodular interstitial thickening. IMPRESSION: 1. Interval development of reticulonodular interstitial thickening. This could either be inflammatory, or secondary to mild interstitial pulmonary edema. Clinical and radiographic follow-up is recommended Electronically signed by: Teddy Lynn M.D. 06/29/2017 1:12 PM Dictated Date/Time: 06/29/2017 12:49 PM Assessment & Plan (1) Diabetes (2) Heart disease (3) HTN (hypertension) (4) STEMI (ST elevation myocardial infarction) (5) HLD (hyperlipidemia) Reason Critically Ill: Patient is an 52-year-old male who is transferred to the ICU for post cardiac cath management. PLAN: CV: * STEMI 2 ASHLEY to Prox to Mid Circumflex, PCI by Dr. Kinney * Prolonged Integrilin Infusion of 18hrs * Continue Diuresis as tolerated * Norepinephrine @ 0.06 currently with 90-59 (73), wean as pressures allow. Goal MAP > 65 Check Random Cortisol * Trend Troponin until trending down * Dual Anti-platelet therapy x 1yr * Continue Atorvastatin 80 mg, ASA 81mg , Ticagrelor 90mg BID * Cardiac Rehab * ECHO pending for AM * Bedside US by Dr. Neal demonstrated ventricular hypokinesis without fluid overload * HTN * Will hold home hypertensives now in the setting of hypotension. * Resume as tolerated Resp: * Hypoxic on presentation; placed on BiPap * Continue and wean as tolerated * Repeat CXR as needed with respiratory changes * Bedside US by Dr. Neal demonstrated Type A profile, No fluid overload noted at this time * Possible aspiration, continue to monitor Neuro: * Acetaminophen in place * If chest pain returns alert provider * Continue home medications * Celexa 40mg and Buspar 15mg TID Fluids/Renal: * FREDIS: Cr Baseline 0.7-0.8 * Now 1.1 * Fluid Resuscitation at 100mL/hr across all fluids * Will monitor PRP and fluid balance closely secondary to fluid overload previously and possible Cardiogenic shock and Acute decompensated heart failure * Lasix IV 40mg given with 1750mL out * Rubalcava in place to gravity * Hyponatremia: Corrected Na 134.4 * Continue to monitor, NSS @ 100 ID: * No current signs of symptoms of infection * Monitor fever curve GI/Nutrition: * Hold AHA/DM1 diet while on vasopressors * May resume as tolerated once pressors are d/c'd Heme: * H&H: 13.5/39.1 Plts: 400 * Monitor for bleeding: * TR band removal per protocol Endocrine: * Insulin infusion in place per protocol * Continue home Long Acting insulin in addition * A1C pending with AM labs CCT: 37 Minutes; This time is exclusive of all separately billable procedures. Thank you for involving us in the care of this patient. Please refer to Dr. Boy Neal's addendum for further recommendations. I have personally evaluated and examined this patient. I agree with assessment and plan of Farnaz Rocha PA-C. Patient's hypoxic respiratory failure is mildly improved. I believe the etiology is secondary to pneumonitis from aspiration. Patient's long ultrasound revealed a type a profile bilaterally. There is no B lines to suggest volume overload at the present time. She still remains on vasoactive medications to maintain an adequate blood pressure, a limited bedside echo shows hypokinetic segments of the left ventricle. Problem Qualifiers (1) STEMI (ST elevation myocardial infarction): Involved coronary artery: unspecified coronary artery Qualified Codes: I21.3 - ST elevation (STEMI) myocardial infarction of unspecified site
[2017-06-29] MEDS: INSULIN ASPART 100 UNITS/ML 3 ML PEN SC SCH (20:37)
[2017-06-29] MEDS: BusPIRone 15 MG TAB PO SCH (20:43)
--- NOTE | 2017-06-29 20:47 | Pre Sedation Assessment ---
Pre Sedation Assessment General Date of Sedation: Jun 29, 2017. Vital Signs Past 12 Hours Date Time Temp Pulse Resp B/P (MAP) Pulse Ox O2 Delivery O2 Flow Rate FiO2 06/29/17 19:11 100 40 06/29/17 18:02 103 27 132/97 (109) 100 06/29/17 18:00 102 17 100 06/29/17 17:46 100 17 73/50 (58) 100 06/29/17 17:45 99 21 100 06/29/17 17:31 97 17 83/61 (68) 100 06/29/17 17:30 96 18 100 06/29/17 17:16 98 21 119/75 (90) 100 06/29/17 17:15 97 19 100 06/29/17 17:01 98 21 108/71 (83) 100 06/29/17 17:00 96 21 100 06/29/17 17:00 97 60 06/29/17 16:46 88 16 96/65 (75) 100 06/29/17 16:45 89 18 100 06/29/17 16:31 91 16 100/64 (76) 99 06/29/17 16:30 92 16 94 06/29/17 16:16 93 16 94/65 (75) 98 06/29/17 16:15 36.4 91 16 110/69 100 BiPAP 70 06/29/17 16:01 122/85 (97) 06/29/17 15:43 111 18 152/95 (114) 98 BiPAP 100 06/29/17 15:23 111 18 128/93 (105) 98 BiPAP 100 06/29/17 14:50 94 100 06/29/17 12:54 36.8 102 21 110/73 93 06/29/17 12:48 110/73 06/29/17 12:46 114/70 06/29/17 12:45 102 21 93 06/29/17 12:41 114/79 06/29/17 12:40 101 18 96 06/29/17 12:35 101 23 96 06/29/17 12:32 36.8 102 14 117/75 96 Room Air 06/29/17 12:32 96 Room Air 06/29/17 12:32 96 Room Air 06/29/17 12:30 104 20 97 06/29/17 12:30 104 06/29/17 12:28 117/75 Review Cardiovascular: regular rate, rhythm, no edema Lungs: chest non-tender, lungs clear Pre-Sedation Airway Assessment Smoking Status: Current Every Day Smoker Hx of Sleep Apnea: No Hx of difficult intubation: No Short Thick Neck: No Thyro-mental Distance: < or =3 Finger Breadths Oral Cavity: WNL Mallampati Classification: Class II ASA Classification: Class IV Procedure Planning Contraindications for Sedation: None Current Medications Reviewed: Yes Notes The planned sedation has been discussed with the patient. Informed Consent was obtained. I have identified the patient, determined the appropriateness of sedation and have assessed the patient immediately prior to the procedure. All medicine(s) and interventions are by my order.
--- NOTE | 2017-06-29 20:49 | Post Sedation Assessment ---
Post Sedation Assessment General Date of Sedation Jun 29, 2017. Vital Signs: Vital Signs Past 12 Hours Date Time Temp Pulse Resp B/P (MAP) Pulse Ox O2 Delivery O2 Flow Rate FiO2 06/29/17 19:11 100 40 06/29/17 18:02 103 27 132/97 (109) 100 06/29/17 18:00 102 17 100 06/29/17 17:46 100 17 73/50 (58) 100 06/29/17 17:45 99 21 100 06/29/17 17:31 97 17 83/61 (68) 100 06/29/17 17:30 96 18 100 06/29/17 17:16 98 21 119/75 (90) 100 06/29/17 17:15 97 19 100 06/29/17 17:01 98 21 108/71 (83) 100 06/29/17 17:00 96 21 100 06/29/17 17:00 97 60 06/29/17 16:46 88 16 96/65 (75) 100 06/29/17 16:45 89 18 100 06/29/17 16:31 91 16 100/64 (76) 99 06/29/17 16:30 92 16 94 06/29/17 16:16 93 16 94/65 (75) 98 06/29/17 16:15 36.4 91 16 110/69 100 BiPAP 70 06/29/17 16:01 122/85 (97) 06/29/17 15:43 111 18 152/95 (114) 98 BiPAP 100 06/29/17 15:23 111 18 128/93 (105) 98 BiPAP 100 06/29/17 14:50 94 100 06/29/17 12:54 36.8 102 21 110/73 93 06/29/17 12:48 110/73 06/29/17 12:46 114/70 06/29/17 12:45 102 21 93 06/29/17 12:41 114/79 06/29/17 12:40 101 18 96 06/29/17 12:35 101 23 96 06/29/17 12:32 36.8 102 14 117/75 96 Room Air 06/29/17 12:32 96 Room Air 06/29/17 12:32 96 Room Air 06/29/17 12:30 104 20 97 06/29/17 12:30 104 06/29/17 12:28 117/75 Post Procedure Recovery Score Activity: (2) Moves 4 extremities * Respiration: (1) Dyspnea/ltd breathing Circulation: (0) +/-50% PreAnes Value Consciousness: (1) Arouseable (by name) Oxygen Saturation: (1) O2 needed for >90% Post Anesthesia Score: 8 Discharge Sedation Level of Care: Higher Level of Care Post Sedation Plan On clinical assessment, the patient appears to have tolerated the sedation without complications. Patient is recovering as anticipated. Patient will continue to be monitored by nursing and may be discharged when sedation discharge criteria are met per below protocol. Upon Completions of procedure and additional 15 minutes continue every 5 minute vital signs and the P.A.R. score; then discharge to a Phase I or Fast Track to Phase II per the following guidelines: * Discharge Patient to appropriate Phase II area if PAR is 8 or greater or return to pre- procedure baseline. The post - procedure orders will be as directed. * If PAR score is less than 8 or not return to pre-procedure baseline then patient will follow Phase I monitoring till PAR is reached for Phase II. The Phase I may be done in procedure room or may call to secure a Phase I area. * If naloxone or flumazenil are used for reversal, hold in Phase I for an additional 60 -120 minutes before discharge to Phase II. Please call the Sedation Physician to re-evaluate and complete post-note for discharge to Phase II area. Do NOT discharge from procedure sedation or Phase 1 until post- sedation evaluation note is complete by procedure /sedation MD Sedation Discharge Instructions to be given to the patient at discharge to home.
[2017-06-29] MEDS ORDERED: INSULIN GLARGINE SOLOSTAR 100 UNITS/ML 3 ML PEN SC SCH (21:00)
[2017-06-29] MEDS ORDERED: METOPROLOL TARTRATE 50 MG TAB PO SCH (21:00)
[2017-06-29] MEDS ORDERED: INSULIN ASPART 100 UNITS/ML 3 ML PEN SC SCH (21:00)
--- NOTE | 2017-06-29 21:37 | Cardiac Catheterization ---
Procedure Note Procedure Date Jun 29, 2017. Pre-Procedure Diagnosis STEMI AUC Score 9 Post-Procedure Diagnosis Severe CAD, Successful PCI Procedure(s) Performed Coronary Angiography, Left Heart Cath, Right Heart Cath [employer] Tier(s) Idris/Jae Estimated Blood Loss 25 Medication(s) Dopamine, Fentanyl, Heparin, Integrilin, Nicardipine, Nitroglycerin, Norepinephrine, Versed, Lidocaine 1% zofran, phenergan Summary of Findings Indication: STEMI/Heart Alert Access: 6Fr Right Radial Artery Catheters: Raymond; EBU 3.5 guide Findings: LM - Luminal irregularities LAD - Patent mid segment stent with 30-40% in-stent restenosis; distal luminal irregularities; gives off left to right collaterals to PDA via septals. Circumflex - Moderate caliber vessel, mild diffuse proximal disease; 95% calcified mid segment disease prior take-off of moderate OM2; 100% acute distal segment occlusion; Moderate caliber L-PLB fills via left to left collaterals with severe disease at ostium. RCA - Small, dominant vessel; diffuse early-mid segment moderate disease with focal 95% stenosis right before prior stent with 50-60% in-stent restenosis. Competitive flow in R-PDA Post-procedure RHC on Norepi - LVEDP - 24 PAWP 15 PA 32/13 (23) AoSat 98% PaSat 60% -- PCI -- Antithrombotic therapy: Heparin, Integrilin Procedure: LM cannulated with EBU 3.5 guide Long whisper wire passed across lesion into distal circumflex/small distal L- PLB (unable to pass wire into bigger L-PLB which filled via collaterals). Mid/distal lesions predilated with 2.0 compliant balloon and 2.5 NC balloon Whisper wire exchanged for mailman wire After multiple inflations due to heavy calcification and difficulty passing equipment distal lesion eventually stented with aid of a guideliner using a 2.25 x 30 [place] ASHLEY 2nd ASHLEY placed from proximal circumflex to mid circumflex overlapping with initial stent Stents post-dilated with stent balloon Post stents -- limited reflow treated with IC vasodilators, IC integrilin and low pressure 1.5 mm balloon inflation distal to stent into L-PLBs Post procedure LAMONTE 2-3 flow distally in stents. Moderate caliber L-PLB still in part filled by collaterals. Intraprocedure course complicated by drug-induced/cardiogenic shock requiring fluids and dopamine. Stat echo showed no evidence of pericardial effusion and LV function appeared preserved. Eventually transitioned from dopamine to norepinephrine in setting of tachycardia Following fluids became increasingly hypoxic requiring, IV lasix 40mg x1 In the setting of hypoxia, coronary no-reflow starting vomiting treated with zofran and Phenergan. Post phenergan increasingly confused requiring additional sedation to complete procedure. At completion of procedure on bipap for hypoxia, sedated, stable hemodynamics on norepinephrine. Elementary Educator consulted for consideration of intubation but patient arousable, protecting airway and decision made to forgo intubation. Arterial Closure: TR Band Summary: 1. Inferior STEMI/Occluded distal circumflex 2. Mult-vessel coronary artery disease - Diffuse mid RCA disease with 95% focal stenosis proximal to prior stent - 40% ISR of mid LAD stent 3. Cardiogenic/drug-induced shock 4. Acute decompensated heart failure 5. PCI of distal circumflex with 2 overlapping ASHLEY (2.5 x 30, 2.25 x 30 [place]) - Procedure complicated by coronary no/slow reflow with ending LAMONTE 2 flow Recommendations: Admit to ICU for continued monitoring Continue integrilin for 18 hrs Give ticagrelor 180 mg in ICU when able to take pills. Additional IV diuresis in ICU Wean norepinephrine, Bipap support as able Trend troponins until peak, Full Echo in AM Continue dual-antiplatelet therapy for at least 1 year High-dose statin Consult cardiac Rehab Further consideration of PCI to RCA pending clinical course. Hemodynamics Rest Ao: 90/61/75 Final Ao: 119/64/87 LV: 119/24 Recommendations PCI without planned CABG Specimens None Radiation Exposure (mGy) 8016 Contrast (mls) 240 Fluids (cc crystalloids) 450 Drains None Anesthesia Moderate Procedural Complication(s) No-reflow; hypotension requiring pressors; hypoxia requiring bipap Disposition ICU ACC Data Cardiac Status Clinical evaluation leading to the procedure CAD Presntation: STEMI Anginal Classification: CCS IV Heart Failure: Yes, NYHA Class: CCS IV Cardiogenic Shock w/in 24Hrs: Yes Cardiac Arrest w/in 24Hrs: No Imaging studies past 6 months: No Stress studies past 6 months: No Closure Device Percutaneous Entry Location: Radial Closure Device: Radial Band Recommendations: PCI without planned CABG PCI Indication: Immediate PCI for STEMI Reason For Delay in PCI: unclear target Lesion Segment Name: mid/distal circumflex Culprit Artery: Yes Stenosis Prior to Rx (%): 100 Chronic Total Occlusion: No IVUS: No FFR: No Pre-Procedure LAMONTE Flow: 0 Previously Treated Lesion: No Lesion Complexity: High/C Lesion Length (mm): 35 Thrombus Present: Yes Bifurcation Lesion: Yes Guidewire Across Lesion: Yes Guidewire: Stenosis Post-Procedure (%): 0 Post-Procedure LAMONTE Flow: 2 Device(s) Deployed: Yes Intraprocedure Events Significant Dissection: No Perforation: No
[2017-06-29] MEDS ORDERED: SODIUM CHLORIDE 0.9% 500ML 500 ML IV SCH (23:30)
[2017-06-30] VITALS (39 sets, daily range): BP systolic 78–108; BP diastolic 49–67; PULSE 90–125; TEMP 36.7–37; O2SAT 2–100; Ht 160 cm; Wt 79.6 kg
[2017-06-30] MEDS ORDERED: SODIUM CHLORIDE 0.9% 1000ML 1,000 ML IV SCH
--- NOTE | 2017-06-30 00:11 | Procedure Note ---
Procedure Note Date of Service Jun 29, 2017. Procedure Note Critical Care Medicine Point of Care Bedside Ultrasound Procedure: Limited Bedside Lung Ultrasound Procedure Date: 06/29/2017 Indication: Persistent hypoxia Attending: Mellisa Neal DO Resident/Physician Second Facing Baster: Hermilo Gomes Organs Examined: Lung BLUE point (upper), BLUE point (lower), Phrenic Point (axillary), PLAPS point ( posterior) A lines visualized: Yes, Hemithorax: Lateral B lines visualized: No, Hemithorax: Bilateral Lung Sliding: Present, Hemithorax: Bilateral Tissue-like Sign: Absent, Hemithorax: Bilateral Shred Sign: Absent, Hemithorax: Bilateral Impression: Type A profile bilaterally Plan: Supplemental oxygen as needed Images obtained are saved for permanent record Critical Care Medicine Point of Care Bedside Ultrasound Procedure: Limited Transthoracic Echocardiogram Indication: Continued hypotension status post cardiac cath Date: 06/29/2017 Attending: Mellisa Neal DO Fellow/Resident/Physician Second Facing Baster: Hermilo bowling Organs Examined: Heart, Vascular system Pericardial fluid: Absent Right ventricle size: Normal LV Contractility: Decreased, hypokinetic segments RV Contractility: Poorly visualized Mechanically ventilated breaths: No Hemodynamic Status: Norepinephrine infusing, blood pressure 83/61 mean arterial pressure 68 heart rate 97 Intravascular volume status: Euvolemic to hypovolemic Impression: Gentle hydration Plan: Wean vasoactive's as needed Images obtained are saved for permanent record
[2017-06-30] MEDS: NOREPINEPHRINE BIT INJ 8 MG in DEXTROSE 5% 500ML 500 ML IV PRN (04:27)
[2017-06-30] MEDS: EPTIFIBATIDE INJ 75 MG PREMIXED IV SCH (04:28)
[2017-06-30 05:21] LABS: BASO % 0.1 %; BASO ABS # 0.01 K/uL (0-0.2); COMPLETE YES; EOS % 0.4 %; HEMATOCRIT 32.4 % (37-47); IG% 0.3 %; LYMPH % 16.5 %; LYMPH ABS # 1.89 K/uL (1.2-3.4); MEAN CELL VOLUME 95.3 fL (80-100); MEAN CORPUSCULAR HEMOGLOBIN 31.8 pg (25-34); MEAN CORPUSCULAR HGB CONC 33.3 g/dl (32-36); MEAN PLATELET VOLUME 9.5 fL (7.4-10.4); MONO % 6.3 %; NEUT % 76.4 %; PLATELET COUNT 321 K/uL (130-400); WHITE BLOOD COUNT 11.47 K/uL (4.8-10.8)
[2017-06-30] MEDS ORDERED: DEXTROSE 50% 50 ML SYR ONE (05:21)
[2017-06-30 05:53] LABS: CREATININE 0.8 mg/dl (0.60-1.20)
[2017-06-30 05:54] LABS: BUN/CREATININE RATIO 25.4 (10-20); CALCIUM 7.4 mg/dl (8.5-10.1); MAGNESIUM 2.1 mg/dl (1.8-2.4); PHOSPHORUS 2.7 mg/dl (2.5-4.9); POTASSIUM 3.8 mmol/L (3.5-5.1)
[2017-06-30 05:57] LABS: CHOLESTEROL/HDL RATIO 5.4
[2017-06-30 07:09] LABS: ESTIMATED AVERAGE GLUCOSE 289 mg/dl; HA1C FLAG Normal (Normal)
[2017-06-30] MEDS ORDERED: PERFLUTREN LIPID MICROSPHERE (DEFINITY) IV ONE (07:38)
[2017-06-30] MEDS: TICAGRELOR 90 MG TAB PO SCH ×2 (07:56→20:41)
[2017-06-30] MEDS: BusPIRone 15 MG TAB PO SCH ×3 (07:56→20:41)
[2017-06-30] MEDS: ASPIRIN 81 MG ECTAB PO SCH (07:59)
[2017-06-30] MEDS: CITALOPRAM 40 MG TAB PO SCH (07:59)
[2017-06-30] MEDS: MULTIVITAMIN TAB PO SCH (08:00)
[2017-06-30] MEDS: ATORVASTATIN 40 MG TAB PO SCH (08:00)
[2017-06-30] MEDS ORDERED: PHARMACY GLYCEMIC MGMT CONSULT PRN (08:58)
[2017-06-30] MEDS ORDERED: SODIUM CHLORIDE 0.9% 500ML 500 ML IV ONE (09:00)
--- NOTE | 2017-06-30 09:38 | Cardiology Follow-Up ---
Subjective Subjective Date of Service: Jun 30, 2017. Pt evaluation today including: conversation w/ patient, physical exam, chart review, lab review, review of studies, conversation w/ sourcing consultant, review of inpatient medication list Additional Details: No chest pain overnight, dyspnea improved - off Bipap now on 2L NC "Still feels a little fuzzy" No focal neurologic symptoms. Negative 800 yesterday Tele reviewed -- sinus tachy; no events Echo reviewed -- LVEF 35-40% inferior/inferolateral akinesis, normal RV function. Mild to moderate MR. No pericardial effusion. IVC nondilated Problem List Medical Problems: (1) Cellulitis Status: Acute (2) Cellulitis Status: Acute Review of Systems Constitutional: No fever Eyes: No worsening of vision ENT: No hearing loss Respiratory: + cough, + sputum, + shortness of breath Cardiac: No chest pain Abdomen: No pain Neurologic: + weakness, + numbness/tingling Heme: No abnormal bleeding/bruising Skin: No rash Objective Vital Signs Last Vital Signs Documentation Date Time Temp Pulse Resp B/P (MAP) Pulse Ox O2 Delivery O2 Flow Rate FiO2 06/30/17 06:31 96 21 90/56 (67) 94 06/30/17 06:01 Nasal Cannula 2.0 06/30/17 05:01 37.0 Physical Exam: General Appearance: no apparent distress ENT: normal ENT inspection Respiratory/Chest: no respiratory distress, + decreased breath sounds, + crackles (few at bases) Cardiovascular: no murmur, + pertinent finding (tachy, regular, no murmurs) Abdomen: normal bowel sounds, non tender, soft Extremities: no pedal edema, no calf tenderness, + pertinent finding (distal extremities warm. No ecchymosis/hematoma at right radial artery access site. No bleeding at Rt CFV triple lumen) Neurologic/Psychiatric: alert, normal mood/affect, oriented x 3 Skin: normal color, warm/dry, + pertinent finding Assessment and Plan 1. Inferior STEMI -- acute on chronic distal LCx occlusion s/p PPCI with 2 ASHLEY complicated by slow reflow 2. Multivessel CAD -- 95% small mid RCA 3. ADHF/Ischemic cardiomyopathy -- EF 35-40%, inferior/inferolateral akinesis 4. Cardiogenic shock -- weaning norepinephrine 5. Respiratory failure -- ADHF/sedation/?aspiration pneumonitis; off Bipap 6. Anemia 7. Diabetes -- on insulin drip Electrically stable. Improving pressor requirement Well perfused, adequate urine output, minimal congestion on exam/cxr; echo suggests possible hypovolemia Troponin peaked. Moderate LV dysfunction. Preserved RV function. No mechanical complications. -- Agree with IV fluid bolus, continue to wean norepi as able -- Integrilin infusion for 18hrs - to finish this morning -- continue DAPT with ASA/Ticagrelor -- statin -- LAURENCE/beta-derick on hold -- With inferior wall motion abnormality will consider RCA intervention, possibly tomorrow pending clinical course -- Appreciate ICU/Hospital medicine teams care. Medications: Current Inpatient Medications Medications (Trade) Dose Ordered Sig/Mehul Route Start Time Stop Time Status Last Admin Dose Admin Aspirin (Ecotrin Tab) 81 mg QAM PO 06/30/17 09:00 07/30/17 08:59 06/30/17 07:59 81 MG Atorvastatin Calcium (Lipitor Tab) 80 mg QAM PO 06/30/17 09:00 07/30/17 08:59 06/30/17 08:00 80 MG Ticagrelor (Brilinta Tab) 90 mg BID PO 06/30/17 07:00 07/30/17 06:59 06/30/17 07:56 90 MG Acetaminophen (Tylenol Tab) 650 mg Q4H PRN PO 06/29/17 16:30 07/29/17 16:29 Miscellaneous Information (Icu Protocol For Hyperglycemia) 1 ea PRN PRN N/A 06/29/17 16:30 07/01/17 16:29 Norepinephrine Bitartrate 8 mg/ Dextrose 508 ml @ 0 mls/hr Q0M PRN IV 06/29/17 17:48 07/29/17 17:47 06/30/17 04:27 11.7 MLS/HR Insulin Aspart (novoLOG ASPART) SLIDING SCALE PCHS SC 06/29/17 21:00 07/29/17 20:59 Buspirone HCl (BusPAR TAB) 15 mg TID PO 06/29/17 21:00 07/29/17 20:59 06/30/17 07:56 15 MG Citalopram Hydrobromide (celeXA TAB) 40 mg QAM PO 06/30/17 09:00 07/30/17 08:59 06/30/17 07:59 40 MG Metoprolol Tartrate (Lopressor Tab) 50 mg BID PO 06/29/17 21:00 07/29/17 20:59 Future Hold Multivitamins (Multivitamin Tab) 1 tab QAM PO 06/30/17 09:00 07/30/17 08:59 06/30/17 08:00 1 TAB Insulin Human Regular 250 units/ Sodium Chloride 252.5 ml @ 0 mls/hr Q24H IV 06/29/17 18:45 07/29/17 18:44 06/29/17 18:45 2.9 MLS/HR Eptifibatide 100 ml @ 12 mls/hr Q8H20M IV 06/29/17 18:45 06/30/17 10:00 06/30/17 04:28 12 MLS/HR Miscellaneous (Stop Order) 1 ea TODAY@1000 N/A 06/30/17 10:00 06/30/17 10:01 Sodium Chloride 1,000 ml @ 100 mls/hr Q10H IV 06/30/17 00:00 07/30/17 00:00 06/30/17 03:13 100 MLS/HR Sodium Chloride 500 ml @ 999 mls/hr Q31M ONCE IV 06/30/17 09:00 06/30/17 09:30 Miscellaneous Information (Consult Glycemic Management Pharmacy) 1 ea UD PRN N/A 06/30/17 08:58 07/30/17 08:57 Lab Results: 06/30/17 05:10 Red Blood Count 3.40, Mean Corpuscular Volume 95.3, Mean Corpuscular Hemoglobin 31.8, Mean Corpuscular Hemoglobin Concent 33.3, Mean Platelet Volume 9.5, Neutrophils (%) (Auto) 76.4, Lymphocytes (%) (Auto) 16.5, Monocytes (%) (Auto) 6.3, Eosinophils (%) (Auto) 0.4, Basophils (%) (Auto) 0.1, Neutrophils # (Auto) 8.77, Lymphocytes # (Auto) 1.89, Monocytes # (Auto) 0.72, Eosinophils # (Auto) 0.05, Basophils # (Auto) 0.01 06/30/17 05:10 Test 06/29/17 12:06 06/29/17 15:18 06/29/17 15:26 06/29/17 17:26 Total Creatine Kinase 737 U/L (26-192) Creatine Kinase MB 30.8 ng/ml (0.5-3.6) Creatine Kinase MB Ratio 4.2 (0-3.0) Random Cortisol 9.02 mcg/dl Hepatitis C Antibody NEG (NEG) Kaolin Activated Coagulation Time 285 SECONDS (94-140) Bedside Blood Gas pH (LAB) 7.30 (7.35-7.45) Bedside Blood Gas pCO2 (LAB) 42 mmHg (35-46) Bedside Blood Gas pO2 (LAB) 112 mmHg (80-95) Bedside Blood Gas HCO3 (LAB) 21 meq/L (19-24) Bedside Blood Gas Total CO2 22 mEq/l (24-31) Bedside Blood Gas Base Excess (LAB) -6.0 meq/L (-9-1.8) Bedside Blood Gas O2 Saturation 98.0 % (90-95) Bedside Glucose 342 mg/dl (70-90) Test 06/30/17 05:10 06/30/17 09:06 White Blood Count 11.47 K/uL (4.8-10.8) Red Blood Count 3.40 M/uL (4.2-5.4) Hemoglobin 10.8 g/dL (12.0-16.0) Hematocrit 32.4 % (37-47) Mean Corpuscular Volume 95.3 fL (80-100) Mean Corpuscular Hemoglobin 31.8 pg (25-34) Mean Corpuscular Hemoglobin Concent 33.3 g/dl (32-36) Platelet Count 321 K/uL (130-400) Mean Platelet Volume 9.5 fL (7.4-10.4) Neutrophils (%) (Auto) 76.4 % Lymphocytes (%) (Auto) 16.5 % Monocytes (%) (Auto) 6.3 % Eosinophils (%) (Auto) 0.4 % Basophils (%) (Auto) 0.1 % Neutrophils # (Auto) 8.77 K/uL (1.4-6.5) Lymphocytes # (Auto) 1.89 K/uL (1.2-3.4) Monocytes # (Auto) 0.72 K/uL (0.11-0.59) Eosinophils # (Auto) 0.05 K/uL (0-0.5) Basophils # (Auto) 0.01 K/uL (0-0.2) RDW Standard Deviation 45.1 fL (36.4-46.3) RDW Coefficient of Variation 13.1 % (11.5-14.5) Immature Granulocyte % (Auto) 0.3 % Immature Granulocyte # (Auto) 0.03 K/uL (0.00-0.02) Anion Gap 4.0 mmol/L (3-11) Est Creatinine Clear Calc Drug Dose 80.5 ml/min Estimated GFR () 97.6 Estimated GFR (Non- 84.2 BUN/Creatinine Ratio 25.4 (10-20) Estimated Average Glucose 289 mg/dl Hemoglobin A1c 11.7 % (4.5-5.6) Calcium Level 7.4 mg/dl (8.5-10.1) Phosphorus Level 2.7 mg/dl (2.5-4.9) Magnesium Level 2.1 mg/dl (1.8-2.4) Troponin I 22.600 ng/ml (0-0.045) Triglycerides Level 252 mg/dl (0-150) Cholesterol Level 158 mg/dl (0-200) HDL Cholesterol 29 mg/dl LDL Cholesterol, Calculated 79 mg/dl VLDL Cholesterol, Calculated 50 mg/dl Cholesterol/HDL Ratio 5.4 Bedside Glucose (other) 81 mg/dl (70-99) Date/Time Source Procedure Growth Status 06/29/17 16:00 Nasal MRSA DNA Surveillance Screen - Final Specimen Negative for MRSA by DNA Probe Complete
--- NOTE | 2017-06-30 09:39 | DIAGNOSTIC IMAGING REPORT ---
CHEST ONE VIEW PORTABLE CLINICAL HISTORY: Hypoxia. COMPARISON STUDY: Chest radiograph June 29, 2017. FINDINGS: No pneumothorax or pleural effusion is identified. Cardiac size is normal. Mediastinal contours are normal. Interstitial thickening has slightly progressed. There is hazy right infrahilar opacity. There is no lobar consolidation. IMPRESSION: Progression of interstitial thickening with development of hazy right infrahilar opacity. The findings could reflect pulmonary edema or an infectious etiology. Electronically signed by: Liam Cloud M.D. 06/30/2017 9:38 AM Dictated Date/Time: 06/30/2017 9:30 AM
[2017-06-30] MEDS ORDERED: Integrelin infusion --> STOP ORDER SCH (10:00)
[2017-06-30] MEDS: INSULIN ASPART 100 UNITS/ML 3 ML PEN SC SCH ×3 (10:35→20:44)
[2017-06-30] MEDS ORDERED: INSULIN ASPART 100 UNITS/ML 3 ML PEN SC ONE (12:00)
--- NOTE | 2017-06-30 12:41 | Pharmacy Progress Note ---
Glycemic Control Intl Consult Date of Service Jun 30, 2017. Scope Glycemic Pharmacist consulted by Brian Grimm on 06/30/17 for glycemic control and to write orders per [facility] inpatient glycemic control protocol Objective Weight (Kilograms): 78.100 Accuchecks BSG (last 24hrs): Test 06/29/17 17:26 06/30/17 05:10 06/30/17 11:31 Bedside Glucose 342 mg/dl (70-90) 128 mg/dl (70-90) Random Glucose 69 mg/dl (70-99) Laboratory Data (last 24hrs) Test 06/30/17 05:10 Anion Gap 4.0 mmol/L BUN/Creatinine Ratio 25.4 Blood Urea Nitrogen 20 mg/dl Creatinine 0.80 mg/dl Hemoglobin A1c 11.7 % Potassium Level 3.8 mmol/L Sodium Level 139 mmol/L White Blood Count 11.47 K/uL Red Blood Count 3.40 M/uL Hemoglobin 10.8 g/dL Hematocrit 32.4 % Mean Corpuscular Volume 95.3 fL Mean Corpuscular Hemoglobin 31.8 pg Mean Corpuscular Hemoglobin Concent 33.3 g/dl Platelet Count 321 K/uL Mean Platelet Volume 9.5 fL Neutrophils (%) (Auto) 76.4 % Lymphocytes (%) (Auto) 16.5 % Monocytes (%) (Auto) 6.3 % Eosinophils (%) (Auto) 0.4 % Basophils (%) (Auto) 0.1 % Neutrophils # (Auto) 8.77 K/uL Lymphocytes # (Auto) 1.89 K/uL Monocytes # (Auto) 0.72 K/uL Eosinophils # (Auto) 0.05 K/uL Basophils # (Auto) 0.01 K/uL HbA1c Test 06/30/17 05:10 Hemoglobin A1c 11.7 % (4.5-5.6) H Recent Pertinent Medications Outpatient Anti-diabetic Regimen: * Lantus 55 units SC qPM (note: previously listed as BID but clarified w patient. qPM dosing only is also similar to previous admission) * Novolog SC TIDM ( units per patient) * A1c = 11.7 % 06/30/17 The patient is currently receiving: * Basal insulin: Lantus 55 units every 12 hours - one dose received 06/30 PM * Insulin drip currently at 1.1 units/hr Risk Factors for Insulin Resistance: * Pressors: Norepinephrine * Recent Surgery: POD 1 s/p PPCI w ASHLEY * Diet: Full liquid Assessment & Plan ASSESSMENT: * 52 yo F w STEMI s/p PPCI w ASHLEY. Requiring pressure support. * Patient known to our service from admission October 2015 in which reported home dose of Lantus caused AM fasting BSG of 71 mg/dL. * Questionable outpatient non-adherence as reported outpatient insulin doses are >100 units/day, but A1c of 11.7% indicates poor glycemic control. Home regimen administered previous admission caused moderate hypoglycemia. However, patient denies regularly missing insulin doses * Will continue to dose Lantus qPM. Will give smaller supplemental AM doses prn. * Home dose of Lantus administered yesterday PM and BSG trended down from 342 mg/dL yesterday PM to 81 mg/dL this AM. * Will decrease dose of Lantus ordered this PM unless significant hyperglycemia * Specific CHO ratio ordered at lunch as calculated ratio for insulin gtt protocol may be too loose 2nd lower rates due to high dose of Lantus admin last night - weight-based stress of 3 * OK to transition insulin gtt per Dr. Neal PLAN FOR INPATIENT GLYCEMIC CONTROL: * Continue IV insulin infusion per severe stress protocol until 1630 * Goal Range 100 - 180 mg/dl * In the critical care setting, continuous IV insulin infusion has been shown to be the best method for achieving glycemic targets. * Nutritional / Prandial insulin per carb ratio of 1 unit per 7 grams CHO consumed at lunch * Basal insulin with LANTUS SQ qPM based on BSG * 25 units BSG less than 120 mg/dL * 45 units BSG 120-180 mg/dL * 50 units BSG greater than 180 mg/dL * Correctional Insulin with NOVOLOG per scale ACHS, add 0000,0400 checks * Goal Range: Low 120 mg/dL - High 160 mg/dL * Correction Factor: 18 mg/dL/unit * Nutritional / Prandial insulin per carb ratio of 1 unit per 6 grams CHO consumed * Please note that the plan above was derived based on current level of insulin resistance and hospital stress. These recommendations are appropriate for inpatient admission only. Plan of care upon discharge will need to be reassessed to avoid potential outpatient hypo/hyperglycemia. Thank you.
--- NOTE | 2017-06-30 13:09 | Procedure Note ---
Procedure Note Date of Service Jun 30, 2017. Procedure Note Called to bedside to evaluate right femoral 3L CVC. RN reports that all three ports can be flushed but none of the ports have blood return. Confirmed with clean technique that all three ports flush easily. Removed sterile dressing.There was no chlorhexidine disk in place. Removed cinch retention suture and found that catheter was kinked. Withdrew catheter 1 cm to straighten catheter and was still unable to get blood return. At this point, the catheter was removed and pressure was placed on the central line site for 15 minutes. There was no evidence of hematoma. A sterile dressing was placed and secured using tegaderm. The patient did experience SOB while laying flat and had increased heart rate into the 120s. Patient was placed back on BiPAP and a STAT EKG was ordered. Otherwise, the patient tolerated the procedure well.
[2017-06-30] MEDS ORDERED: FUROSEMIDE INJ 20 MG in SYRINGE 0 ML IV ONE ×2 (13:30→23:30)
--- NOTE | 2017-06-30 13:30 | ECHOCARDIOGRAM REPORT ---
*NOTICE TO RECEIVING DEMOCRAT AGENCY This information is strictly Confidential and protected under [place] law. [place] law prohibits you from making any further disclosure of this information unless further disclosure is expressly permitted by the written consent of the person to whom it pertains or is authorized by law. A general authorization for the release of medical or other information is not sufficient for this purpose. Hospital accepts no responsibility if the information is made available to any other person, INCLUDING THE PATIENT. Interpretation Summary * Name: NUSRAT MILLER Study Date: 06/30/2017 06:36 AM BP: 94/57 mmHg * Patient Location: .MSICU\S\E104\S\1 HR: 91 * : 1965 (M/d/yyyy) Gender: Female Height: 63 in * Age: 52 yrs Ethnicity: CA Weight: 172 lb * Ordering Physician: Oj Kinney * Referring Physician: Self, Referred * Performed By: Migel Lugo RCS * * Reason For Study: AMI, S/P PCI * BSA: 1.8 m2 * -- Conclusions -- * Left ventricular systolic function is moderately reduced. * There appears to be an element of restrictive diastolic filling * There are regional wall motion abnormalities as specified. * The right ventricular systolic function is reduced as assessed by tricuspid annular plane systolic excursion (TAPSE) (TAPSE <1.6 cm). * There is mild to moderate mitral regurgitation. * There is mild to moderate tricuspid regurgitation. * Right ventricular systolic pressure is elevated at 30-40mmHg. Procedure Details * A complete two-dimensional transthoracic echocardiogram was performed (2D, M-mode, Doppler and color flow Doppler). * A contrast injection of Definity was performed to improve assessment of LV function. * Contrast was injected into an intravenous site in the central line. * One vial of Definity ultrasound contrast was diluted in normal saline to a total volume of 10 ml. A total of '1' ml of solution was administered during imaging. * Lot # [id number] of Definity utilized for procedure. * Expiration date . * The attending nurse who injected the contrast agent was Mellisa Deleon RN. Left Ventricle * The left ventricle is normal in size. * There is normal left ventricular wall thickness. * Ejection Fraction = 35-40%. * Left ventricular systolic function is moderately reduced. * There appears to be an element of restrictive diastolic filling * There are regional wall motion abnormalities as specified. * There is severe hypokinesis involving the inferior and posterior mcgraw with akinesis of the inferior septum. Right Ventricle * The right ventricle is grossly normal size. * The right ventricular systolic function is reduced as assessed by tricuspid annular plane systolic excursion (TAPSE) (TAPSE <1.6 cm). Atria * The left atrial size is normal. * Right atrial size is normal. Mitral Valve * The mitral valve is grossly normal. * There is mild to moderate mitral regurgitation. * The mitral regurgitant jet is posteriorly directed, which is consistent with anterior leaflet pathology. Tricuspid Valve * The tricuspid valve is not well visualized, but is grossly normal. * There is mild to moderate tricuspid regurgitation. * Right ventricular systolic pressure is elevated at 30-40mmHg. Aortic Valve * The aortic valve is normal in structure and function. * No hemodynamically significant valvular aortic stenosis. * There is no significant aortic regurgitation. Great Vessels * The aortic root is normal size. Pericardium/Pleural * There is no pericardial effusion. Great Vessels * Normal inferior vena cava size and collapsability with sniff indicates a normal right atrial pressure of 3 mmHg MMode 2D Measurements and Calculations IVSd 0.99 cm IVSs 1.2 cm LVIDd 5.0 cm LVIDs 4.2 cm LVPWd 0.90 cm LVPWs 1.0 cm IVS/LVPW 1.1 FS 15.2 % EDV(Teich) 115.8 ml ESV(Teich) 78.7 ml EF(Teich) 32.0 % EDV(cubed) 121.6 ml ESV(cubed) 74.2 ml EF(cubed) 39.0 % % IVS thick 24.5 % % LVPW thick 13.4 % LV mass(C)d 165.6 grams LV mass(C)dI 91.3 grams/m\S\2 LV mass(C)s 162.1 grams LV mass(C)sI 89.4 grams/m\S\2 SV(Teich) 37.1 ml SI(Teich) 20.4 ml/m\S\2 SV(cubed) 47.4 ml SI(cubed) 26.1 ml/m\S\2 Ao root diam 3.0 cm Ao root area 6.9 cm\S\2 ACS 1.4 cm LA dimension 3.6 cm asc Aorta Diam 2.7 cm LA/Ao 1.2 EDV(MOD-sp4) 96.0 ml ESV(MOD-sp4) 56.0 ml EF(MOD-sp4) 41.7 % EDV(MOD-sp2) 102.0 ml ESV(MOD-sp2) 75.0 ml EF(MOD-sp2) 26.5 % SV(MOD-sp4) 40.0 ml SI(MOD-sp4) 22.1 ml/m\S\2 SV(MOD-sp2) 27.0 ml SI(MOD-sp2) 14.9 ml/m\S\2 Doppler Measurements and Calculations MV E max jean paul 113.8 cm/sec MV A max jean paul 43.7 cm/sec MV E/A 2.6 MV P1/2t max jean paul 109.4 cm/sec MV P1/2t 69.9 msec MVA(P1/2t) 3.1 cm\S\2 MV dec slope 458.4 cm/sec\S\2 MV dec time 0.17 sec Ao V2 max 96.2 cm/sec Ao max PG 3.7 mmHg Ao max PG (full) 1.1 mmHg LV V1 max PG 2.6 mmHg LV V1 max 81.4 cm/sec PA V2 max 69.3 cm/sec PA max PG 1.9 mmHg TR max jean paul 291.5 cm/sec
[2017-06-30] MEDS ORDERED: FUROSEMIDE 40 MG/4 ML VIAL ONE (13:35)
[2017-06-30] MEDS ORDERED: NURSING VERBAL MED ORDER ONE (14:30)
[2017-06-30] MEDS ORDERED: DC IV INSULIN INFUSION ONE (16:30)
[2017-06-30] MEDS ORDERED: LEVALBUTEROL 0.63MG/3 ML NEB INH PRN (18:00)
--- NOTE | 2017-06-30 18:14 | Critical Care Progress Note ---
Critical Care Progress Note Date of Service Jun 30, 2017. ICU Day ICU Day Number: [address] Neal Jacques Is a 52-year-old female who has a significant past medical history for type 1 diabetes mellitus insulin-dependent which is poorly controlled with a chronic hemoglobin A1c greater than 10. She also has significant history for CAD with her first ST elevated VA at age 41. She presented to [facility] on 06/29/17 and was taken to the cardiac catheterization lab where she was found to have CAD requiring PCI with intervention with drug-eluting stents. She was placed on Integrilin and managed by Dr. Alonso Kinney. A triple-lumen central venous catheter was inserted in the right femoral vein. This afternoon the attending RN had difficulty drawing from all three ports but could easily flush all three ports. The central venous catheter was evaluated and eventually removed. Please see associated procedure note this date of this provider. During removal of the central line the patient had some tachycardia and shortness of breath and some hypoxia to about 87%. Supplemental oxygen was increased to 4 L/m and patient did correct to 90/91% the patient continued be tachycardic. Examination revealed bibasilar rales and patient was given 20 mg of IV furosemide with approximate 400 mL of urine out. Patient continued to be tachycardic and was seen by Dr. Kinney who ordered 2.5 mg of Lopressor IV. The patient has continued to deny chest pain, back pain, abdominal pain. She has no cough or sputum production. She denies fever. She has no other acute complaints at this time. Current SOFA Score SOFA Score Response (Comments) Value Platelets (x10) > 150 0 Bilirubin (mg/dL) < 1.2 0 Kimberly Coma Score 15 0 Level of Hypotension MAP less than 70 1 Creatinine (mg/dL) < 1.2 0 Total 1 Assessment & Plan ST ELEVATED VA Percutaneous intervention with 2 drug-eluting stents to Prox to Mid Circumflex Status post Integrilin 18 hours Continue to require norepinephrine at low dose Troponin 17 Continue Brilinta and aspirin Continue atorvastatin Home antihypertensives held secondary to low MAP PULMONARY Chronic every day smoker Hypoxic on presentation and requires supplemental O2 Placed on BiPAP and tolerated well. Chest x-ray demonstrates right infrahilar opacity reflecting pulmonary edema versus infectious etiology Hold IV fluids and administer furosemide 20 mg IV one dose Follow clinically Advised to quit smoking immediately ENDOCRINE Type 1 diabetes mellitus insulin dependent Poor control over the years with elevated hemoglobin A1c greater than 10 for several years Has been on similar insulin dosing Advised to follow with endocrinology on discharge Glycemic consult placed telehealth nurse educator in to see patient today Discussed need for medication compliance with patient ELECTROLYTES Sodium 139 Potassium 3.8 Calcium 7.4 Phosphorus 2.7 Magnesium 2.1 Follow serial labs and replete as necessary HYPERLIPIDEMIA Continue atorvastatin Follow serial labs as an outpatient as triglycerides are 252 PSYCH Appropriate affect Continue buspirone and citalopram RENAL Creatinine 0.8 down from 1.11 Hold IV fluids for pulmonary edema Follow serial labs Follow urine output DVT PROPHYLAXIS SCDs / TEDs Continue Brilinta CCT: 35 minutes Thank you for including us in the care of this patient. Please refer to Dr. Neal's addendum for further recommendations I have personally evaluated and examined this patient. I agree with assessment and plan of Rodolfo Grimm PA-C. Patient requiring vasoactive support, cardiogenic shock. Patient may have aspect of duodenitis secondary to aspiration, she is not having a significant cough, there are no secretions, she is not having a fever. We will still monitor for possible evolution of her pneumonia, I do not believe there is a bacterial component at this time. Consults & Procedures Consultants: Cardiology - Dr. Kinney Diabetic education Procedures: Right femoral CVC catheter placed 06/29/17 Right femoral CVC catheter removed 06/30/17 PCI with two drug-eluting stents placed perioperatively during cardiac catheterization 06/29/[address] Kinney IV infusion of pressors IV infusion of fluids IV infusion of medication Data Medications: Current Inpatient Medications Medications (Trade) Dose Ordered Sig/Mehul Route Start Time Stop Time Status Last Admin Dose Admin Aspirin (Ecotrin Tab) 81 mg QAM PO 06/30/17 09:00 07/30/17 08:59 06/30/17 07:59 81 MG Atorvastatin Calcium (Lipitor Tab) 80 mg QAM PO 06/30/17 09:00 07/30/17 08:59 06/30/17 08:00 80 MG Ticagrelor (Brilinta Tab) 90 mg BID PO 06/30/17 07:00 07/30/17 06:59 06/30/17 07:56 90 MG Acetaminophen (Tylenol Tab) 650 mg Q4H PRN PO 06/29/17 16:30 07/29/17 16:29 Norepinephrine Bitartrate 8 mg/ Dextrose 508 ml @ 0 mls/hr Q0M PRN IV 06/29/17 17:48 07/29/17 17:47 06/30/17 04:27 11.7 MLS/HR Buspirone HCl (BusPAR TAB) 15 mg TID PO 06/29/17 21:00 07/29/17 20:59 06/30/17 14:29 15 MG Citalopram Hydrobromide (celeXA TAB) 40 mg QAM PO 06/30/17 09:00 07/30/17 08:59 06/30/17 07:59 40 MG Metoprolol Tartrate (Lopressor Tab) 50 mg BID PO 06/29/17 21:00 07/29/17 20:59 Future Hold Multivitamins (Multivitamin Tab) 1 tab QAM PO 06/30/17 09:00 07/30/17 08:59 06/30/17 08:00 1 TAB Miscellaneous Information (Consult Glycemic Management Pharmacy) 1 ea UD PRN N/A 06/30/17 08:58 07/30/17 08:57 Insulin Glargine (Lantus Solostar Pen) QPM MN 06/30/17 21:00 07/30/17 20:59 Insulin Aspart (novoLOG ASPART) SLIDING SCALE ACHS MN 06/30/17 16:00 07/30/17 15:59 06/30/17 17:14 11 UNITS Insulin Aspart (novoLOG ASPART) SLIDING SCALE TODAY@0000,0400 MN 07/01/17 00:00 07/01/17 04:01 I & O: 24-Hour Column 07/01/17 08:00 Intake Total 1030 ml Output Total 350 ml Balance 680 ml Vital Signs: Date Time Temp Pulse Resp B/P (MAP) Pulse Ox O2 Delivery O2 Flow Rate FiO2 06/30/17 16:00 36.7 110 21 92/63 (73) 100 BiPAP 40 06/30/17 14:00 120 23 100/67 (78) 97 BiPAP 40 06/30/17 12:00 Nasal Cannula 2.0 06/30/17 10:01 36.7 100 25 95/59 (71) 89 06/30/17 08:01 36.7 101 23 96/63 (74) 96 06/30/17 08:00 Nasal Cannula 2.0 06/30/17 06:31 96 21 90/56 (67) 94 06/30/17 06:16 104 19 100/63 (75) 96 06/30/17 06:01 93 21 106/61 (76) 98 Nasal Cannula 2.0 06/30/17 05:46 91 19 82/52 (62) 97 06/30/17 05:31 93 20 82/50 (61) 94 06/30/17 05:16 96 21 108/64 (79) 96 06/30/17 05:01 37.0 93 20 84/50 (61) 97 Nasal Cannula 2.0 06/30/17 04:31 91 21 94/57 (69) 98 06/30/17 04:16 92 19 91/56 (68) 98 06/30/17 04:01 36.9 91 18 91/53 (66) 97 Nasal Cannula 2.0 06/30/17 04:00 2 Nasal Cannula 06/30/17 03:46 92 19 94/57 (69) 97 06/30/17 03:31 90 24 93/54 (67) 97 06/30/17 03:16 92 21 95/57 (70) 97 06/30/17 03:01 92 18 91/57 (68) 99 06/30/17 02:46 92 18 92/56 (68) 99 06/30/17 02:31 93 20 89/55 (66) 99 06/30/17 02:16 93 19 88/58 (68) 98 06/30/17 02:01 95 19 90/55 (67) 98 Nasal Cannula 2.0 06/30/17 01:46 95 20 95/57 (70) 98 06/30/17 01:31 95 21 90/55 (67) 98 06/30/17 01:16 94 21 87/54 (65) 96 06/30/17 01:01 96 21 100/60 (73) 98 06/30/17 00:46 98 21 102/62 (75) 97 06/30/17 00:31 96 21 99/60 (73) 97 06/30/17 00:16 95 21 90/61 (71) 97 06/30/17 00:01 36.7 94 21 99/62 (74) 97 Nasal Cannula 2.0 06/29/17 23:59 2 Nasal Cannula 06/29/17 23:46 94 22 96/61 (73) 97 06/29/17 23:31 95 20 100/64 (76) 97 06/29/17 23:16 96 20 114/68 (83) 98 06/29/17 23:01 97 18 96/57 (70) 97 06/29/17 23:00 96 23 96 06/29/17 22:46 96 23 97/60 (72) 96 06/29/17 22:31 101 16 77/53 (61) 98 06/29/17 22:16 95 20 95/63 (74) 100 06/29/17 22:01 93 21 90/59 (69) 100 06/29/17 21:46 92 20 89/59 (69) 100 06/29/17 21:31 95 15 94/59 (71) 100 06/29/17 21:16 94 21 93/61 (72) 100 06/29/17 21:01 98 22 86/57 (67) 100 06/29/17 20:46 96 20 88/55 (66) 100 06/29/17 20:31 96 22 99/62 (74) 100 06/29/17 20:16 101 19 105/65 (78) 100 06/29/17 20:01 37.0 100 19 92/55 (67) 100 BiPAP 30 06/29/17 20:00 BiPAP 40 06/29/17 19:11 100 40 06/29/17 18:02 103 27 132/97 (109) 100 06/29/17 18:00 102 17 100 Laboratory Results: Last 24 Hours Test 06/29/17 20:30 06/29/17 21:34 06/29/17 22:20 06/29/17 22:23 Bedside Glucose (other) 256 mg/dl 218 mg/dl 238 mg/dl Troponin I 27.900 ng/ml Test 06/29/17 23:11 06/30/17 00:17 06/30/17 01:14 06/30/17 05:05 Bedside Glucose (other) 208 mg/dl 180 mg/dl 158 mg/dl 114 mg/dl Test 06/30/17 05:10 06/30/17 06:20 06/30/17 07:19 06/30/17 09:06 White Blood Count 11.47 K/uL Red Blood Count 3.40 M/uL Hemoglobin 10.8 g/dL Hematocrit 32.4 % Mean Corpuscular Volume 95.3 fL Mean Corpuscular Hemoglobin 31.8 pg Mean Corpuscular Hemoglobin Concent 33.3 g/dl Platelet Count 321 K/uL Mean Platelet Volume 9.5 fL Neutrophils (%) (Auto) 76.4 % Lymphocytes (%) (Auto) 16.5 % Monocytes (%) (Auto) 6.3 % Eosinophils (%) (Auto) 0.4 % Basophils (%) (Auto) 0.1 % Neutrophils # (Auto) 8.77 K/uL Lymphocytes # (Auto) 1.89 K/uL Monocytes # (Auto) 0.72 K/uL Eosinophils # (Auto) 0.05 K/uL Basophils # (Auto) 0.01 K/uL RDW Standard Deviation 45.1 fL RDW Coefficient of Variation 13.1 % Immature Granulocyte % (Auto) 0.3 % Immature Granulocyte # (Auto) 0.03 K/uL Sodium Level 139 mmol/L Potassium Level 3.8 mmol/L Chloride Level 109 mmol/L Carbon Dioxide Level 26 mmol/L Anion Gap 4.0 mmol/L Blood Urea Nitrogen 20 mg/dl Creatinine 0.80 mg/dl Est Creatinine Clear Calc Drug Dose 80.5 ml/min Estimated GFR () 97.6 Estimated GFR (Non- 84.2 BUN/Creatinine Ratio 25.4 Random Glucose 69 mg/dl Estimated Average Glucose 289 mg/dl Hemoglobin A1c 11.7 % Calcium Level 7.4 mg/dl Phosphorus Level 2.7 mg/dl Magnesium Level 2.1 mg/dl Troponin I 22.600 ng/ml Triglycerides Level 252 mg/dl Cholesterol Level 158 mg/dl HDL Cholesterol 29 mg/dl LDL Cholesterol, Calculated 79 mg/dl VLDL Cholesterol, Calculated 50 mg/dl Cholesterol/HDL Ratio 5.4 Bedside Glucose (other) 115 mg/dl 93 mg/dl 81 mg/dl Test 06/30/17 10:29 06/30/17 11:31 06/30/17 12:58 06/30/17 13:59 Bedside Glucose 104 mg/dl 128 mg/dl 168 mg/dl Troponin I 17.100 ng/ml Test 06/30/17 15:16 06/30/17 16:09 Bedside Glucose 159 mg/dl 163 mg/dl
--- NOTE | 2017-06-30 18:16 | ECHOCARDIOGRAM REPORT ---
*NOTICE TO RECEIVING [employer]Y This information is strictly Confidential and protected under [place] law. [place] law prohibits you from making any further disclosure of this information unless further disclosure is expressly permitted by the written consent of the person to whom it pertains or is authorized by law. A general authorization for the release of medical or other information is not sufficient for this purpose. Hospital accepts no responsibility if the information is made available to any other person, INCLUDING THE PATIENT. Interpretation Summary * Name: CYNTHIA MILLER Study Date: 06/29/2017 02:45 PM BP: 110/73 mmHg * Patient Location: [facility] HR: 91 * : 1965 (M/d/yyyy) Gender: Female Height: 63 in * Age: 52 yrs Ethnicity: [place] Weight: 172 lb * Ordering Physician: MD Oj Kinney MD * Referring Physician: MD Oj Kinney MD * Performed By: Cynthia Kessler [facility] * * Reason For Study: HEART ALERT * BSA: 1.8 m2 * -- Conclusions -- * Limited Echo obtained during PCI -- * 1. Mild LV dysfunction with posterior akinesis. * 2. Normal RV size and function. * 3. No pericardial effusion. Non-dilated IVC. Procedure Details * Limited views were obtained. Left Ventricle * The left ventricle is grossly normal size. * Left ventricular systolic function is mild to moderately reduced. Right Ventricle * The right ventricle is grossly normal size. * The right ventricular systolic function is qualitatively normal. Mitral Valve * The mitral valve is grossly normal. * There is no mitral valve stenosis. Pericardium/Pleural * There is no pericardial effusion. Great Vessels * Normal inferior vena cava size and collapsability with sniff indicates a normal right atrial pressure of 3 mmHg
--- NOTE | 2017-06-30 18:23 | Hospitalist Progress Note ---
Hospitalist Progress Note Date of Service Jun 30, 2017. Subjective Pt evaluation today including: conversation w/ patient, conversation w/ family , conversation w/ senior research consultant (Cardiology) Pt was weaned off BiPAP and levophed today. SHe then had acute onset of SOB, hypoxia, and sinus tachycardia after having to lie flat for femoral CVC to be removed. SHe was placed back on BiPAP, was given IV lasix, diuresed about 400 mL urine, and had ECG with no acute changes. She was weaned back off the BiPAP about 3.5 hrs later. Currently, she reports her breathing feels better, is on 2LNC now and POx 93-94% . No CP. As for her glucose at home, she reports she usually gets in the 200s-300s on her accuchecks. SHe reports she went to one appt with Endocrine this year and they advised Dietary counseling and she never went back-states "I know all that stuff." She is now committed to quitting smoking. All Other Systems: Reviewed and Negative Objective Vital Signs Date Time Temp Pulse Resp B/P (MAP) Pulse Ox O2 Delivery O2 Flow Rate FiO2 06/30/17 16:00 36.7 110 21 92/63 (73) 100 BiPAP 40 06/30/17 14:00 120 23 100/67 (78) 97 BiPAP 40 06/30/17 10:01 36.7 100 25 95/59 (71) 89 06/30/17 08:01 36.7 101 23 96/63 (74) 96 06/30/17 06:31 96 21 90/56 (67) 94 06/30/17 06:16 104 19 100/63 (75) 96 06/30/17 06:01 93 21 106/61 (76) 98 Nasal Cannula 2.0 06/30/17 05:46 91 19 82/52 (62) 97 06/30/17 05:31 93 20 82/50 (61) 94 06/30/17 05:16 96 21 108/64 (79) 96 06/30/17 05:01 37.0 93 20 84/50 (61) 97 Nasal Cannula 2.0 06/30/17 04:31 91 21 94/57 (69) 98 06/30/17 04:16 92 19 91/56 (68) 98 06/30/17 04:01 36.9 91 18 91/53 (66) 97 Nasal Cannula 2.0 06/30/17 04:00 2 Nasal Cannula 06/30/17 03:46 92 19 94/57 (69) 97 06/30/17 03:31 90 24 93/54 (67) 97 06/30/17 03:16 92 21 95/57 (70) 97 06/30/17 03:01 92 18 91/57 (68) 99 06/30/17 02:46 92 18 92/56 (68) 99 06/30/17 02:31 93 20 89/55 (66) 99 06/30/17 02:16 93 19 88/58 (68) 98 06/30/17 02:01 95 19 90/55 (67) 98 Nasal Cannula 2.0 06/30/17 01:46 95 20 95/57 (70) 98 06/30/17 01:31 95 21 90/55 (67) 98 06/30/17 01:16 94 21 87/54 (65) 96 06/30/17 01:01 96 21 100/60 (73) 98 06/30/17 00:46 98 21 102/62 (75) 97 06/30/17 00:31 96 21 99/60 (73) 97 06/30/17 00:16 95 21 90/61 (71) 97 06/30/17 00:01 36.7 94 21 99/62 (74) 97 Nasal Cannula 2.0 06/29/17 23:59 2 Nasal Cannula 06/29/17 23:46 94 22 96/61 (73) 97 06/29/17 23:31 95 20 100/64 (76) 97 06/29/17 23:16 96 20 114/68 (83) 98 06/29/17 23:01 97 18 96/57 (70) 97 06/29/17 23:00 96 23 96 06/29/17 22:46 96 23 97/60 (72) 96 06/29/17 22:31 101 16 77/53 (61) 98 06/29/17 22:16 95 20 95/63 (74) 100 06/29/17 22:01 93 21 90/59 (69) 100 06/29/17 21:46 92 20 89/59 (69) 100 06/29/17 21:31 95 15 94/59 (71) 100 06/29/17 21:16 94 21 93/61 (72) 100 06/29/17 21:01 98 22 86/57 (67) 100 06/29/17 20:46 96 20 88/55 (66) 100 06/29/17 20:31 96 22 99/62 (74) 100 06/29/17 20:16 101 19 105/65 (78) 100 06/29/17 20:01 37.0 100 19 92/55 (67) 100 BiPAP 30 06/29/17 20:00 BiPAP 40 06/29/17 19:11 100 40 06/29/17 18:02 103 27 132/97 (109) 100 06/29/17 18:00 102 17 100 Physical Exam General Appearance: WD/WN, no apparent distress Eyes: normal inspection, sclerae normal ENT: hearing grossly normal Neck: trachea midline Respiratory/Chest: no respiratory distress, no accessory muscle use, + decreased breath sounds (throughout with faint exp wheezes in middle lung richey , +crackles at bases and middle lung richey.) Cardiovascular: no murmur, + tachycardia (with reg rhythm), + pertinent finding (trace pitting edema legs bilat) Abdomen: normal bowel sounds, non tender, soft Extremities: non-tender, no calf tenderness Neurologic/Psychiatric: alert, normal mood/affect, oriented x 3 Skin: normal color, warm/dry, no rash Laboratory Results Last 24 Hours Test 06/29/17 20:30 06/29/17 21:34 06/29/17 22:20 06/29/17 22:23 Bedside Glucose (other) 256 mg/dl 218 mg/dl 238 mg/dl Troponin I 27.900 ng/ml Test 06/29/17 23:11 06/30/17 00:17 06/30/17 01:14 06/30/17 05:05 Bedside Glucose (other) 208 mg/dl 180 mg/dl 158 mg/dl 114 mg/dl Test 06/30/17 05:10 06/30/17 06:20 06/30/17 07:19 06/30/17 09:06 White Blood Count 11.47 K/uL Red Blood Count 3.40 M/uL Hemoglobin 10.8 g/dL Hematocrit 32.4 % Mean Corpuscular Volume 95.3 fL Mean Corpuscular Hemoglobin 31.8 pg Mean Corpuscular Hemoglobin Concent 33.3 g/dl Platelet Count 321 K/uL Mean Platelet Volume 9.5 fL Neutrophils (%) (Auto) 76.4 % Lymphocytes (%) (Auto) 16.5 % Monocytes (%) (Auto) 6.3 % Eosinophils (%) (Auto) 0.4 % Basophils (%) (Auto) 0.1 % Neutrophils # (Auto) 8.77 K/uL Lymphocytes # (Auto) 1.89 K/uL Monocytes # (Auto) 0.72 K/uL Eosinophils # (Auto) 0.05 K/uL Basophils # (Auto) 0.01 K/uL RDW Standard Deviation 45.1 fL RDW Coefficient of Variation 13.1 % Immature Granulocyte % (Auto) 0.3 % Immature Granulocyte # (Auto) 0.03 K/uL Sodium Level 139 mmol/L Potassium Level 3.8 mmol/L Chloride Level 109 mmol/L Carbon Dioxide Level 26 mmol/L Anion Gap 4.0 mmol/L Blood Urea Nitrogen 20 mg/dl Creatinine 0.80 mg/dl Est Creatinine Clear Calc Drug Dose 80.5 ml/min Estimated GFR () 97.6 Estimated GFR (Non- 84.2 BUN/Creatinine Ratio 25.4 Random Glucose 69 mg/dl Estimated Average Glucose 289 mg/dl Hemoglobin A1c 11.7 % Calcium Level 7.4 mg/dl Phosphorus Level 2.7 mg/dl Magnesium Level 2.1 mg/dl Troponin I 22.600 ng/ml Triglycerides Level 252 mg/dl Cholesterol Level 158 mg/dl HDL Cholesterol 29 mg/dl LDL Cholesterol, Calculated 79 mg/dl VLDL Cholesterol, Calculated 50 mg/dl Cholesterol/HDL Ratio 5.4 Bedside Glucose (other) 115 mg/dl 93 mg/dl 81 mg/dl Test 06/30/17 10:29 06/30/17 11:31 06/30/17 12:58 06/30/17 13:59 Bedside Glucose 104 mg/dl 128 mg/dl 168 mg/dl Troponin I 17.100 ng/ml Test 06/30/17 15:16 06/30/17 16:09 Bedside Glucose 159 mg/dl 163 mg/dl Assessment and Plan Pt is a 52-year-old female with a history of uncontrolled diabetes mellitus type I, hypertension, CAD, current smoker, PAD, depression/anxiety, here with STEMI now status post stent placement to the circumflex artery. Also with acute hypoxemic and hypercapnic respiratory failure and severe hypotension and cardiogenic shock requiring vasopressors. STEMI/Cardiogenic shock/Acute diastolic and systolic CHF/CAD-s/p ASHLEY x 2 to the Cx artery 06/29. Is now weaned off Levophed, BPs remain low normal. No further chest pain. Had some acute pulm edema today which improved with IV lasix. Troponins peaked at 28 and now trending downward. CXR today with pulm edema ECHO 06/30 with: * Left ventricular systolic function is moderately reduced, 35-40%. * There appears to be an element of restrictive diastolic filling * There are regional wall motion abnormalities as specified. * The right ventricular systolic function is reduced as assessed by tricuspid annular plane systolic excursion (TAPSE) (TAPSE <1.6 cm). * There is mild to moderate mitral regurgitation. * There is mild to moderate tricuspid regurgitation. * Right ventricular systolic pressure is elevated at 30-40mmHg. 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 Required BiPAP support x 24 hrs, now weaned off. ABG at time of cath pH 7.24/PaCO2 51/PA O2 37. Long time smoker, likely has COPD -follow sats, wean O2 as tolerated -diuresing as above -levalbuterol nebs as needed as is wheezing on exam, but could be cardiac wheeze -caution with tachycardia -will need formal PFTs as outpt -is now committed to smoking cessation DMI-uncontrolled, on custodial insulin, with hyperglycemia. HgbA1C here 11.7% which is not far off from her usual. Glucose better today.--was started on an insulin drip and now weaned off -continue Lantus protocol as per pharmacy with short acting coverage with meals Proph-SCDs, ASA, Brillinta Dispo-continue in ICU status FULL CODE
[2017-06-30 18:40] LABS: HEMATOCRIT 31.1 % (37-47)
[2017-06-30] MEDS: METOPROLOL TARTRATE 1 MG/ML VIAL IV. SCH (19:50)
[2017-06-30] MEDS: INSULIN GLARGINE SOLOSTAR 100 UNITS/ML 3 ML PEN SC SCH (20:43)
[2017-06-30 21:51] LABS: BUN/CREATININE RATIO 18.3 (10-20); CALCIUM 7.4 mg/dl (8.5-10.1); CREATININE 0.82 mg/dl (0.60-1.20); POTASSIUM 4.2 mmol/L (3.5-5.1)
[2017-07-01] VITALS (21 sets, daily range): BP systolic 77–123; BP diastolic 51–81; PULSE 95–122; TEMP 36.8–37; O2SAT 91–98
[2017-07-01] MEDS: INSULIN ASPART 100 UNITS/ML 3 ML PEN SC SCH ×6 (00:17→20:49)
[2017-07-01 05:53] LABS: BASO % 0.1 %; BASO ABS # 0.01 K/uL (0-0.2); COMPLETE YES; EOS % 0.3 %; HEMATOCRIT 31.4 % (37-47); IG% 0.3 %; LYMPH % 10.6 %; LYMPH ABS # 1.38 K/uL (1.2-3.4); MEAN CELL VOLUME 96.3 fL (80-100); MEAN CORPUSCULAR HEMOGLOBIN 31.6 pg (25-34); MEAN CORPUSCULAR HGB CONC 32.8 g/dl (32-36); MEAN PLATELET VOLUME 9.7 fL (7.4-10.4); MONO % 6.8 %; NEUT % 81.9 %; PLATELET COUNT 282 K/uL (130-400); RED BLOOD COUNT 3.26 M/uL (4.2-5.4); WHITE BLOOD COUNT 12.97 K/uL (4.8-10.8)
[2017-07-01 06:30] LABS: BUN/CREATININE RATIO 22.7 (10-20); CALCIUM 7.4 mg/dl (8.5-10.1); CREATININE 0.79 mg/dl (0.60-1.20); MAGNESIUM 2.2 mg/dl (1.8-2.4); PHOSPHORUS 2.6 mg/dl (2.5-4.9); POTASSIUM 4.1 mmol/L (3.5-5.1)
[2017-07-01] MEDS: METOPROLOL TARTRATE 1 MG/ML VIAL IV. SCH ×5 (06:58→23:55)
--- NOTE | 2017-07-01 07:08 | DIAGNOSTIC IMAGING REPORT ---
CHEST ONE VIEW PORTABLE CLINICAL HISTORY: fluid overload CHF COMPARISON STUDY: Chest radiograph June 30, 2017. FINDINGS: There has been marked progression of interstitial thickening with perihilar and bibasilar opacities. Bilateral pleural effusions have developed since prior exam. There is no pneumothorax. Cardiac size is normal. IMPRESSION: 1. Marked progression of interstitial thickening with perihilar and bibasilar opacities consistent with pulmonary edema. 2. Interval development of [id number] bilateral pleural effusions. Electronically signed by: Liam Cloud M.D. 07/01/2017 7:07 AM Dictated Date/Time: 07/01/2017 7:05 AM
[2017-07-01] MEDS ORDERED: POTASSIUM CHLORIDE 20 MEQ TABCR PO ONE (08:30)
[2017-07-01] MEDS ORDERED: BUMETANIDE IV 1 MG in SYRINGE 0 ML IV ONE (08:30)
[2017-07-01] MEDS: ATORVASTATIN 40 MG TAB PO SCH (08:31)
[2017-07-01] MEDS: MULTIVITAMIN TAB PO SCH (08:31)
[2017-07-01] MEDS: ASPIRIN 81 MG ECTAB PO SCH (08:31)
[2017-07-01] MEDS: BusPIRone 15 MG TAB PO SCH ×3 (08:31→20:58)
[2017-07-01] MEDS: CITALOPRAM 40 MG TAB PO SCH (08:31)
[2017-07-01] MEDS: TICAGRELOR 90 MG TAB PO SCH ×2 (08:32→20:59)
--- NOTE | 2017-07-01 10:08 | Pharmacy Progress Note ---
Glycemic Control Progress Note Date of Service Jul 01, 2017. Scope Glycemic Pharmacist consulted for glycemic control to write orders per [facility] inpatient glycemic control protocol. Objective Accuchecks BSG (last 24hrs): Test 06/30/17 10:29 06/30/17 11:31 06/30/17 12:58 06/30/17 15:16 Bedside Glucose 104 mg/dl (70-90) 128 mg/dl (70-90) 168 mg/dl (70-90) 159 mg/dl (70-90) Test 06/30/17 16:09 06/30/17 20:34 06/30/17 21:13 07/01/17 00:12 Bedside Glucose 163 mg/dl (70-90) 190 mg/dl (70-90) 181 mg/dl (70-90) Random Glucose 172 mg/dl (70-99) Test 07/01/17 04:33 07/01/17 05:29 Bedside Glucose 153 mg/dl (70-90) Random Glucose 154 mg/dl (70-99) HbA1c: Test 06/30/17 05:10 Hemoglobin A1c 11.7 % (4.5-5.6) H Recent Pertinent Medications Outpatient Anti-diabetic Regimen: * Lantus 55 units SC qPM (note: previously listed as BID but clarified w patient. qPM dosing only is also similar to previous admission) * Novolog SC TIDM ( units per patient) * A1c = 11.7 % 06/30/17 The patient is currently receiving: * Basal insulin with LANTUS SQ qPM based on BSG * 25 units BSG less than 120 mg/dL * 45 units BSG 120-180 mg/dL * 50 units BSG greater than 180 mg/dL * Correctional Insulin with NOVOLOG per scale ACHS, add 0000,0400 checks * Goal Range: Low 120 mg/dL - High 160 mg/dL * Correction Factor: 18 mg/dL/unit * Nutritional / Prandial insulin per carb ratio of 1 unit per 6 grams CHO consumed Risk Factors for Insulin Resistance: * Pressors: Norepinephrine stopped 06/30 @ 1300 per ICU rounds * Recent Surgery: POD 2 s/p PPCI w ASHLEY * Diet: Full liquid Outpatient Anti-Diabetic Meds Basal Insulin Bolus Insulin Assessment & Plan ASSESSMENT: 06/30/17 * 52 yo F w STEMI s/p PPCI w ASHLEY. Requiring pressure support. * Patient known to our service from admission October 2015 in which reported home dose of Lantus caused AM fasting BSG of 71 mg/dL. * Questionable outpatient non-adherence as reported outpatient insulin doses are >100 units/day, but A1c of 11.7% indicates poor glycemic control. Home regimen administered previous admission caused moderate hypoglycemia. However, patient denies regularly missing insulin doses * Will continue to dose Lantus qPM. Will give smaller supplemental AM doses prn. * Home dose of Lantus administered yesterday PM and BSG trended down from 342 mg/dL yesterday PM to 81 mg/dL this AM. * Will decrease dose of Lantus ordered this PM unless significant hyperglycemia * Specific CHO ratio ordered at lunch as calculated ratio for insulin gtt protocol may be too loose 2nd lower rates due to high dose of Lantus admin last night - weight-based stress of 3 * OK to transition insulin gtt per Dr. Neal 07/01/17 * Insulin drip turned off yesterday at ~1700. BSG's since that time ranging 153 -190 mg/dL with the exception of one BSG of 273 mg/dL at lunch today. Etiology of hyperglycemia likely significant CHO intake at breakfast (80 g) and carb ratio that's too loose. * Will tighten CHO ratio. Will also slightly tighten correction factor. * Will give one-time IV bolus insulin dose 0.1 units/kg for BSG > 250 mg/dL * Patient takes Lantus qPM at home - will keep similar regimen to help with transition back to outpatient * Lantus 50 units administered last night, produced fasting AM BSG of 153 mg/ dL. Will slightly adjust BSG parameters to target continuation of 50 units Lantus qPM PLAN FOR INPATIENT GLYCEMIC CONTROL: * Regular insulin 8 units IV x1 now * Basal insulin with LANTUS SQ qPM based on BSG * 25 units BSG less than 110 mg/dL * 45 units BSG 110-140 mg/dL * 50 units BSG 141-200 mg/dL * 55 units BSG greater than 200 mg/dL * Correctional Insulin with NOVOLOG per scale ACHS * Goal Range: Low 120 mg/dL - High 160 mg/dL * Tighten Correction Factor: 15 mg/dL/unit * Tighten Nutritional / Prandial insulin per carb ratio of 1 unit per 5 grams CHO consumed * Please note that the plan above was derived based on current level of insulin resistance and hospital stress. These recommendations are appropriate for inpatient admission only. Plan of care upon discharge will need to be reassessed to avoid potential outpatient hypo/hyperglycemia. Thank you.
--- NOTE | 2017-07-01 12:51 | Critical Care Progress Note ---
Critical Care Progress Note Date of Service Jul 01, 2017. ICU Day ICU Day Number: [address] Neal Subjective Chest pain-free, mild shortness of breath when sitting on the edge of bed Objective Gen. alert and oriented 3 Pulmonary: Scattered rhonchi and occasional rale Cardiovascular S1-S2 Current SOFA Score SOFA Score Response (Comments) Value Platelets (x10) > 150 0 Bilirubin (mg/dL) < 1.2 0 [place] Coma Score 15 0 Level of Hypotension MAP less than 70 1 Creatinine (mg/dL) < 1.2 0 Total 1 Assessment & Plan (1) Diabetes (2) Heart disease (3) HTN (hypertension) (4) STEMI (ST elevation myocardial infarction) (5) HLD (hyperlipidemia) ST ELEVATED ME Percutaneous intervention with 2 drug-eluting stents to Prox to Mid Circumflex Status post Integrilin 18 hours Troponin downtrending Continue Brilinta and aspirin Continue atorvastatin Started 2.5 mg metoprolol PULMONARY Chronic every day smoker Hypoxic on presentation and requires supplemental O2 Placed on BiPAP and tolerated well. Chest x-ray most consistent with pulmonary edema Holding IV fluids and diuresing with 1 mg of Bumex Follow clinically Advised to quit smoking immediately ENDOCRINE Type 1 diabetes mellitus insulin dependent Poor control over the years with elevated hemoglobin A1c greater than 10 for several years Has been on similar insulin dosing Advised to follow with endocrinology on discharge Glycemic consult placed nutrition educator in to see patient today Discussed need for medication compliance with patient HYPERLIPIDEMIA Continue atorvastatin Follow serial labs as an outpatient as triglycerides are 252 PSYCH Appropriate affect Continue buspirone and citalopram RENAL Creatinine 0.79 Hold IV fluids for pulmonary edema Follow serial labs Follow urine output DVT PROPHYLAXIS SCDs / TEDs Continue Brilinta I have personally spent 40 minutes of critical care time in the direct management of this patient. This is a life/limb threatening event. This includes time spent evaluating patient, direct bedside care, chart review, placing orders, interpretation of diagnostic studies, discussion with consultants, patient, and family members, as well as other required patient management activities. This time is exclusive of all separately billable procedures, and teaching time and separate from and in addition to any other critical care service time. Consults & Procedures Consultants: Cardiology - Dr. Kinney Diabetic education Procedures: Right femoral CVC catheter placed 06/29/17 Right femoral CVC catheter removed 06/30/17 PCI with two drug-eluting stents placed perioperatively during cardiac catheterization 06/29/[address] Kinney IV infusion of pressors IV infusion of fluids IV infusion of medication Data Medications: Current Inpatient Medications Medications (Trade) Dose Ordered Sig/Mehul Route Start Time Stop Time Status Last Admin Dose Admin Aspirin (Ecotrin Tab) 81 mg QAM PO 06/30/17 09:00 07/30/17 08:59 07/01/17 08:31 81 MG Atorvastatin Calcium (Lipitor Tab) 80 mg QAM PO 06/30/17 09:00 07/30/17 08:59 07/01/17 08:31 80 MG Ticagrelor (Brilinta Tab) 90 mg BID PO 06/30/17 07:00 07/30/17 06:59 07/01/17 08:32 90 MG Acetaminophen (Tylenol Tab) 650 mg Q4H PRN PO 06/29/17 16:30 07/29/17 16:29 Norepinephrine Bitartrate 8 mg/ Dextrose 508 ml @ 0 mls/hr Q0M PRN IV 06/29/17 17:48 07/29/17 17:47 06/30/17 04:27 11.7 MLS/HR Buspirone HCl (BusPAR TAB) 15 mg TID PO 06/29/17 21:00 07/29/17 20:59 07/01/17 08:31 15 MG Citalopram Hydrobromide (celeXA TAB) 40 mg QAM PO 06/30/17 09:00 07/30/17 08:59 07/01/17 08:31 40 MG Metoprolol Tartrate (Lopressor Tab) 50 mg BID PO 06/29/17 21:00 07/29/17 20:59 Future Hold Multivitamins (Multivitamin Tab) 1 tab QAM PO 06/30/17 09:00 07/30/17 08:59 07/01/17 08:31 1 TAB Miscellaneous Information (Consult Glycemic Management Pharmacy) 1 ea UD PRN N/A 06/30/17 08:58 07/30/17 08:57 Insulin Glargine (Lantus Solostar Pen) QPM SC 06/30/17 21:00 07/30/17 20:59 06/30/17 20:43 50 UNITS Insulin Aspart (novoLOG ASPART) SLIDING SCALE ACHS SC 06/30/17 16:00 07/30/17 15:59 07/01/17 12:16 15 UNITS Levalbuterol (Xopenex 0.63 Mg/ 3 Ml Neb) 0.63 mg Q6R PRN INH 06/30/17 18:00 18 17:59 Metoprolol Tartrate (Lopressor Iv) 2.5 mg Q6 IV. 06/30/17 19:00 07/30/17 18:59 07/01/17 06:58 2.5 MG Vital Signs: Date Time Temp Pulse Resp B/P (MAP) Pulse Ox O2 Delivery O2 Flow Rate FiO2 07/01/17 12:00 118 07/01/17 10:00 113 22 82/58 (66) 95 Nasal Cannula 2.5 07/01/17 08:00 37.0 112 25 112/62 (79) 94 Nasal Cannula 2.0 07/01/17 08:00 Nasal Cannula 2.5 07/01/17 07:01 95 23 84/52 (63) 94 Nasal Cannula 2.5 07/01/17 06:58 103 07/01/17 06:01 114 23 94/61 (72) 94 Nasal Cannula 2.5 07/01/17 05:01 103 22 93/59 (70) 95 Nasal Cannula 2.5 07/01/17 04:01 37.0 103 24 91/60 (70) 96 Nasal Cannula 2.5 07/01/17 04:00 91 2.5 07/01/17 03:01 101 23 88/58 (68) 96 Nasal Cannula 2.5 07/01/17 02:01 102 24 86/58 (67) 96 Nasal Cannula 2.5 07/01/17 01:01 108 25 88/62 (71) 95 Nasal Cannula 2.5 07/01/17 00:01 37.0 111 24 87/59 (68) 94 Nasal Cannula 2.5 07/01/17 00:00 114 87/59 06/30/17 23:59 91 2.5 06/30/17 23:01 111 28 86/59 (68) 94 Nasal Cannula 2.5 06/30/17 22:01 115 34 90/58 (69) 93 Nasal Cannula 2.5 06/30/17 21:01 115 33 81/53 (62) 94 Nasal Cannula 2.5 06/30/17 20:01 36.8 107 21 78/49 (59) 93 Nasal Cannula 2.5 06/30/17 20:00 91 2.5 06/30/17 19:50 123 94/64 06/30/17 19:01 125 27 89/59 (69) 91 Nasal Cannula 2.0 06/30/17 18:00 123 23 102/66 (78) 92 Nasal Cannula 1.0 06/30/17 16:00 BiPAP 06/30/17 16:00 36.7 110 21 92/63 (73) 100 BiPAP 40 06/30/17 14:00 120 23 100/67 (78) 97 BiPAP 40 Laboratory Results: Last 24 Hours Test 06/30/17 12:58 06/30/17 13:59 06/30/17 15:16 06/30/17 16:09 Bedside Glucose 168 mg/dl 159 mg/dl 163 mg/dl Troponin I 17.100 ng/ml Test 06/30/17 18:31 06/30/17 20:34 06/30/17 21:13 07/01/17 00:12 Hemoglobin 10.3 g/dL Hematocrit 31.1 % Bedside Glucose 190 mg/dl 181 mg/dl Sodium Level 135 mmol/L Potassium Level 4.2 mmol/L Chloride Level 106 mmol/L Carbon Dioxide Level 21 mmol/L Anion Gap 8.0 mmol/L Blood Urea Nitrogen 15 mg/dl Creatinine 0.82 mg/dl Est Creatinine Clear Calc Drug Dose 78.5 ml/min Estimated GFR () 94.7 Estimated GFR (Non- 81.7 BUN/Creatinine Ratio 18.3 Random Glucose 172 mg/dl Calcium Level 7.4 mg/dl Test 07/01/17 04:33 07/01/17 05:29 Bedside Glucose 153 mg/dl White Blood Count 12.97 K/uL Red Blood Count 3.26 M/uL Hemoglobin 10.3 g/dL Hematocrit 31.4 % Mean Corpuscular Volume 96.3 fL Mean Corpuscular Hemoglobin 31.6 pg Mean Corpuscular Hemoglobin Concent 32.8 g/dl Platelet Count 282 K/uL Mean Platelet Volume 9.7 fL Neutrophils (%) (Auto) 81.9 % Lymphocytes (%) (Auto) 10.6 % Monocytes (%) (Auto) 6.8 % Eosinophils (%) (Auto) 0.3 % Basophils (%) (Auto) 0.1 % Neutrophils # (Auto) 10.62 K/uL Lymphocytes # (Auto) 1.38 K/uL Monocytes # (Auto) 0.88 K/uL Eosinophils # (Auto) 0.04 K/uL Basophils # (Auto) 0.01 K/uL RDW Standard Deviation 47.5 fL RDW Coefficient of Variation 13.4 % Immature Granulocyte % (Auto) 0.3 % Immature Granulocyte # (Auto) 0.04 K/uL Sodium Level 135 mmol/L Potassium Level 4.1 mmol/L Chloride Level 105 mmol/L Carbon Dioxide Level 22 mmol/L Anion Gap 8.0 mmol/L Blood Urea Nitrogen 18 mg/dl Creatinine 0.79 mg/dl Est Creatinine Clear Calc Drug Dose 81.5 ml/min Estimated GFR () 99.1 Estimated GFR (Non- 85.5 BUN/Creatinine Ratio 22.7 Random Glucose 154 mg/dl Calcium Level 7.4 mg/dl Phosphorus Level 2.6 mg/dl Magnesium Level 2.2 mg/dl Problem Qualifiers (1) STEMI (ST elevation myocardial infarction): Involved coronary artery: unspecified coronary artery Qualified Codes: I21.3 - ST elevation (STEMI) myocardial infarction of unspecified site
[2017-07-01] MEDS ORDERED: INSULIN HUMAN REGULAR PER UNIT 8 UNITS in SYRINGE 7.92 ML IV STA (13:10)
--- NOTE | 2017-07-01 13:35 | Cardiology Follow-Up ---
Subjective Subjective Date of Service: Jul 01, 2017. Pt evaluation today including: conversation w/ patient, physical exam, chart review, lab review, review of studies, review of inpatient medication list Additional Details: Increased shortness of breath overnight, received IV lasix 20 mg overnight AM chest xray showed increased pulmonary edema --> given bumex x1 ~12:00 states feeling a little better. No chest pain. HR still in 110s to 120s with intermittent metoprolol SBP in 80-90s. Problem List Medical Problems: (1) Cellulitis Status: Acute (2) Cellulitis Status: Acute Review of Systems Constitutional: No fever Eyes: No worsening of vision ENT: No hearing loss Respiratory: + cough, + sputum, + shortness of breath Cardiac: No chest pain Abdomen: No pain Neurologic: + weakness, + numbness/tingling Heme: No abnormal bleeding/bruising Skin: No rash Objective Vital Signs Last Vital Signs Documentation Date Time Temp Pulse Resp B/P (MAP) Pulse Ox O2 Delivery O2 Flow Rate FiO2 07/01/17 12:00 118 07/01/17 10:00 22 82/58 (66) 95 Nasal Cannula 2.5 07/01/17 08:00 37.0 06/30/17 16:00 40 Physical Exam: General Appearance: no apparent distress ENT: hearing grossly normal Neck: trachea midline Respiratory/Chest: no respiratory distress, no accessory muscle use, + crackles (crackles right base, diminished breath sounds at left base) Cardiovascular: no murmur, + tachycardia (with reg rhythm) Abdomen: normal bowel sounds, non tender, soft Extremities: non-tender, no calf tenderness Neurologic/Psychiatric: alert, normal mood/affect, oriented x 3 Skin: normal color, warm/dry, no rash Assessment and Plan 1. Inferior STEMI -- acute on chronic distal LCx occlusion s/p PPCI with 2 ASHLEY complicated by slow reflow 2. Multivessel CAD -- 95% small mid RCA 3. ADHF/Ischemic cardiomyopathy -- EF 35-40%, inferior/inferolateral akinesis 4. Cardiogenic shock -- off norepi 5. Respiratory failure -- ADHF/sedation/?aspiration pneumonitis; on 2L 6. Anemia -- stable 7. Diabetes -- off insulin drip BP remains borderline but stable off pressors. Sinus tachy, no arrhythmias. Well perfused; increased congestion on chest xray -- Continue diuresis today -- recommend additional dose of lasix 40 or bumex 1 mg later today -- Hold beta-derick in setting of borderline BPs -- continue DAPT with ASA/Ticagrelor -- statin -- LAURENCE on hold -- Will hold off on RCA intervention until more stable -- Appreciate ICU/Hospital medicine teams care. Medications: Current Inpatient Medications Medications (Trade) Dose Ordered Sig/Mehul Route Start Time Stop Time Status Last Admin Dose Admin Aspirin (Ecotrin Tab) 81 mg QAM PO 06/30/17 09:00 07/30/17 08:59 07/01/17 08:31 81 MG Atorvastatin Calcium (Lipitor Tab) 80 mg QAM PO 06/30/17 09:00 07/30/17 08:59 07/01/17 08:31 80 MG Ticagrelor (Brilinta Tab) 90 mg BID PO 06/30/17 07:00 07/30/17 06:59 07/01/17 08:32 90 MG Acetaminophen (Tylenol Tab) 650 mg Q4H PRN PO 06/29/17 16:30 07/29/17 16:29 Norepinephrine Bitartrate 8 mg/ Dextrose 508 ml @ 0 mls/hr Q0M PRN IV 06/29/17 17:48 07/29/17 17:47 06/30/17 04:27 11.7 MLS/HR Buspirone HCl (BusPAR TAB) 15 mg TID PO 06/29/17 21:00 07/29/17 20:59 07/01/17 08:31 15 MG Citalopram Hydrobromide (celeXA TAB) 40 mg QAM PO 06/30/17 09:00 07/30/17 08:59 07/01/17 08:31 40 MG Metoprolol Tartrate (Lopressor Tab) 50 mg BID PO 06/29/17 21:00 07/29/17 20:59 Future Hold Multivitamins (Multivitamin Tab) 1 tab QAM PO 06/30/17 09:00 07/30/17 08:59 07/01/17 08:31 1 TAB Miscellaneous Information (Consult Glycemic Management Pharmacy) 1 ea UD PRN N/A 06/30/17 08:58 07/30/17 08:57 Insulin Glargine (Lantus Solostar Pen) QPM SC 06/30/17 21:00 07/30/17 20:59 06/30/17 20:43 50 UNITS Insulin Aspart (novoLOG ASPART) SLIDING SCALE ACHS SC 06/30/17 16:00 07/30/17 15:59 07/01/17 12:16 15 UNITS Levalbuterol (Xopenex 0.63 Mg/ 3 Ml Neb) 0.63 mg Q6R PRN INH 06/30/17 18:00 07/30/17 17:59 Metoprolol Tartrate (Lopressor Iv) 2.5 mg Q6 IV. 06/30/17 19:00 07/30/17 18:59 07/01/17 06:58 2.5 MG Insulin Human Regular 8 units/ Syringe 8 ml @ 30 mls/min NOW STAT IV 07/01/17 13:10 07/01/17 13:11 Lab Results: 07/01/17 05:29 Red Blood Count 3.26, Mean Corpuscular Volume 96.3, Mean Corpuscular Hemoglobin 31.6, Mean Corpuscular Hemoglobin Concent 32.8, Mean Platelet Volume 9.7, Neutrophils (%) (Auto) 81.9, Lymphocytes (%) (Auto) 10.6, Monocytes (%) (Auto) 6.8, Eosinophils (%) (Auto) 0.3, Basophils (%) (Auto) 0.1, Neutrophils # (Auto) 10.62, Lymphocytes # (Auto) 1.38, Monocytes # (Auto) 0.88, Eosinophils # (Auto) 0.04, Basophils # (Auto) 0.01 07/01/17 05:29 Test 06/30/17 13:59 07/01/17 04:33 07/01/17 05:29 Troponin I 17.100 ng/ml (0-0.045) Bedside Glucose 153 mg/dl (70-90) White Blood Count 12.97 K/uL (4.8-10.8) Red Blood Count 3.26 M/uL (4.2-5.4) Hemoglobin 10.3 g/dL (12.0-16.0) Hematocrit 31.4 % (37-47) Mean Corpuscular Volume 96.3 fL (80-100) Mean Corpuscular Hemoglobin 31.6 pg (25-34) Mean Corpuscular Hemoglobin Concent 32.8 g/dl (32-36) Platelet Count 282 K/uL (130-400) Mean Platelet Volume 9.7 fL (7.4-10.4) Neutrophils (%) (Auto) 81.9 % Lymphocytes (%) (Auto) 10.6 % Monocytes (%) (Auto) 6.8 % Eosinophils (%) (Auto) 0.3 % Basophils (%) (Auto) 0.1 % Neutrophils # (Auto) 10.62 K/uL (1.4-6.5) Lymphocytes # (Auto) 1.38 K/uL (1.2-3.4) Monocytes # (Auto) 0.88 K/uL (0.11-0.59) Eosinophils # (Auto) 0.04 K/uL (0-0.5) Basophils # (Auto) 0.01 K/uL (0-0.2) RDW Standard Deviation 47.5 fL (36.4-46.3) RDW Coefficient of Variation 13.4 % (11.5-14.5) Immature Granulocyte % (Auto) 0.3 % Immature Granulocyte # (Auto) 0.04 K/uL (0.00-0.02) Anion Gap 8.0 mmol/L (3-11) Est Creatinine Clear Calc Drug Dose 81.5 ml/min Estimated GFR () 99.1 Estimated GFR (Non- 85.5 BUN/Creatinine Ratio 22.7 (10-20) Calcium Level 7.4 mg/dl (8.5-10.1) Phosphorus Level 2.6 mg/dl (2.5-4.9) Magnesium Level 2.2 mg/dl (1.8-2.4)
[2017-07-01] MEDS ORDERED: POTASSIUM CHLORIDE 10 MEQ TABCR PO STA (13:42)
[2017-07-01] MEDS ORDERED: BUMETANIDE IV 1 MG in SYRINGE 0 ML IV SCH (14:00)
[2017-07-01] MEDS ORDERED: ONDANSETRON INJ 2 MG/ML 2 ML VIAL ONE (14:37)
[2017-07-01] MEDS ORDERED: ONDANSETRON INJ 2 MG/ML 2 ML VIAL IV PRN (14:45)
[2017-07-01 16:29] LABS: MAGNESIUM 2.1 mg/dl (1.8-2.4); POTASSIUM 4.1 mmol/L (3.5-5.1)
[2017-07-01] MEDS ORDERED: NURSING VERBAL MED ORDER ONE (17:15)
--- NOTE | 2017-07-01 19:45 | Hospitalist Progress Note ---
Hospitalist Progress Note Date of Service Jul 01, 2017. Subjective Pt evaluation today including: conversation w/ patient, conversation w/ loans consultant (epic cadence analyst) Patient was diuresed overnight and again this morning and reports that her breathing is the best it's been yet. She remains a bit hypotensive and tachycardic. Her metoprolol is now on hold as per my discussion with the epic cadence analyst. She denies any chest pain. She did have one episode of emesis today after taking an oral potassium pill. All Other Systems: Reviewed and Negative Objective Vital Signs Date Time Temp Pulse Resp B/P (MAP) Pulse Ox O2 Delivery O2 Flow Rate FiO2 07/01/17 18:00 115 25 77/51 (60) 98 Nasal Cannula 2.5 07/01/17 16:00 Nasal Cannula 2.5 07/01/17 16:00 36.8 121 24 91/56 (68) 95 Nasal Cannula 2.5 07/01/17 14:00 122 27 123/81 (95) 93 Nasal Cannula 2.5 07/01/17 12:00 36.9 119 28 111/70 (84) 93 Nasal Cannula 2.0 07/01/17 12:00 Nasal Cannula 2.5 07/01/17 12:00 118 07/01/17 10:00 113 22 82/58 (66) 95 Nasal Cannula 2.5 07/01/17 08:00 37.0 112 25 112/62 (79) 94 Nasal Cannula 2.0 07/01/17 08:00 Nasal Cannula 2.5 07/01/17 07:01 95 23 84/52 (63) 94 Nasal Cannula 2.5 07/01/17 06:58 103 07/01/17 06:01 114 23 94/61 (72) 94 Nasal Cannula 2.5 07/01/17 05:01 103 22 93/59 (70) 95 Nasal Cannula 2.5 07/01/17 04:01 37.0 103 24 91/60 (70) 96 Nasal Cannula 2.5 07/01/17 04:00 91 2.5 07/01/17 03:01 101 23 88/58 (68) 96 Nasal Cannula 2.5 07/01/17 02:01 102 24 86/58 (67) 96 Nasal Cannula 2.5 07/01/17 01:01 108 25 88/62 (71) 95 Nasal Cannula 2.5 07/01/17 00:01 37.0 111 24 87/59 (68) 94 Nasal Cannula 2.5 07/01/17 00:00 114 87/59 06/30/17 23:59 91 2.5 06/30/17 23:01 111 28 86/59 (68) 94 Nasal Cannula 2.5 06/30/17 22:01 115 34 90/58 (69) 93 Nasal Cannula 2.5 06/30/17 21:01 115 33 81/53 (62) 94 Nasal Cannula 2.5 06/30/17 20:01 36.8 107 21 78/49 (59) 93 Nasal Cannula 2.5 06/30/17 20:00 91 2.5 06/30/17 19:50 123 94/64 Physical Exam General Appearance: WD/WN, no apparent distress Eyes: normal inspection, sclerae normal ENT: hearing grossly normal Neck: trachea midline Respiratory/Chest: no respiratory distress, no accessory muscle use, + decreased breath sounds (at the bases bilaterally, otherwise no wheezes or crackles) Cardiovascular: no murmur, + tachycardia (with a regular rhythm) Abdomen: normal bowel sounds, non tender, soft Extremities: no calf tenderness, + swelling (trace pitting edema in the legs bilaterally to the knees) Neurologic/Psychiatric: alert, normal mood/affect, oriented x 3 Skin: normal color, warm/dry, no rash Laboratory Results Last 24 Hours Test 06/30/17 20:34 06/30/17 21:13 07/01/17 00:12 07/01/17 04:33 Bedside Glucose 190 mg/dl 181 mg/dl 153 mg/dl Sodium Level 135 mmol/L Potassium Level 4.2 mmol/L Chloride Level 106 mmol/L Carbon Dioxide Level 21 mmol/L Anion Gap 8.0 mmol/L Blood Urea Nitrogen 15 mg/dl Creatinine 0.82 mg/dl Est Creatinine Clear Calc Drug Dose 78.5 ml/min Estimated GFR () 94.7 Estimated GFR (Non- 81.7 BUN/Creatinine Ratio 18.3 Random Glucose 172 mg/dl Calcium Level 7.4 mg/dl Test 07/01/17 05:29 07/01/17 11:18 07/01/17 15:58 07/01/17 16:13 White Blood Count 12.97 K/uL Red Blood Count 3.26 M/uL Hemoglobin 10.3 g/dL Hematocrit 31.4 % Mean Corpuscular Volume 96.3 fL Mean Corpuscular Hemoglobin 31.6 pg Mean Corpuscular Hemoglobin Concent 32.8 g/dl Platelet Count 282 K/uL Mean Platelet Volume 9.7 fL Neutrophils (%) (Auto) 81.9 % Lymphocytes (%) (Auto) 10.6 % Monocytes (%) (Auto) 6.8 % Eosinophils (%) (Auto) 0.3 % Basophils (%) (Auto) 0.1 % Neutrophils # (Auto) 10.62 K/uL Lymphocytes # (Auto) 1.38 K/uL Monocytes # (Auto) 0.88 K/uL Eosinophils # (Auto) 0.04 K/uL Basophils # (Auto) 0.01 K/uL RDW Standard Deviation 47.5 fL RDW Coefficient of Variation 13.4 % Immature Granulocyte % (Auto) 0.3 % Immature Granulocyte # (Auto) 0.04 K/uL Sodium Level 135 mmol/L Potassium Level 4.1 mmol/L 4.1 mmol/L Chloride Level 105 mmol/L Carbon Dioxide Level 22 mmol/L Anion Gap 8.0 mmol/L Blood Urea Nitrogen 18 mg/dl Creatinine 0.79 mg/dl Est Creatinine Clear Calc Drug Dose 81.5 ml/min Estimated GFR () 99.1 Estimated GFR (Non- 85.5 BUN/Creatinine Ratio 22.7 Random Glucose 154 mg/dl Calcium Level 7.4 mg/dl Phosphorus Level 2.6 mg/dl Magnesium Level 2.2 mg/dl 2.1 mg/dl Bedside Glucose 273 mg/dl 118 mg/dl Assessment and Plan Pt is a 52-year-old female with a history of uncontrolled diabetes mellitus type I, hypertension, severe CAD, current smoker, PAD, depression/anxiety, here with STEMI now status post stent placement to the circumflex artery. Also with acute hypoxemic and hypercapnic respiratory failure and severe hypotension and cardiogenic shock requiring vasopressors. STEMI/Cardiogenic shock/Acute diastolic and systolic CHF/severe CAD-s/p ASHLEY x 2 to the Cx artery 06/29. Is now weaned off Levophed, BPs remain low and remains in sinus tachycardia despite use of metoprolol. No further chest pain. Had worsened pulm edema and bilateral pleural effusions today on chest x-ray which improved with IV lasix, as well as IV Bumex as morning. Troponins peaked at 28 and now trending downward. IV metoprolol now on hold due to hypotension. ECHO 06/30 with: * Left ventricular systolic function is moderately reduced, 35-40%. * There appears to be an element of restrictive diastolic filling * There are regional wall motion abnormalities as specified. * The right ventricular systolic function is reduced as assessed by tricuspid annular plane systolic excursion (TAPSE) (TAPSE <1.6 cm). * There is mild to moderate mitral regurgitation. * There is mild to moderate tricuspid regurgitation. * Right ventricular systolic pressure is elevated at 30-40mmHg. 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 Required BiPAP support x 24 hrs, now weaned off. ABG at time of cath pH 7.24/PaCO2 51/PA O2 37. Remains on nasal cannula-stable Long time smoker, likely has COPD -follow sats, wean O2 as tolerated -diuresing as above -levalbuterol nebs as needed -will need formal PFTs as outpt -is now committed to smoking cessation DMI-uncontrolled, on snf insulin, with hyperglycemia. HgbA1C here 11.7% which is not far off from her usual. Glucose is much improved --was started on an insulin drip and now weaned off -continue Lantus protocol as per pharmacy with short acting coverage with meals Proph-SCDs, ASA, Brillinta Dispo-continue in ICU status FULL CODE
[2017-07-01] MEDS: INSULIN GLARGINE SOLOSTAR 100 UNITS/ML 3 ML PEN SC SCH (21:02)
[2017-07-02] VITALS (15 sets, daily range): BP systolic 87–104; BP diastolic 55–70; PULSE 98–113; TEMP 36.7–37.3; O2SAT 92–98
[2017-07-02] MEDS: METOPROLOL TARTRATE 1 MG/ML VIAL IV. SCH ×2 (05:40→11:46)
[2017-07-02 06:08] LABS: BASO % 0.1 %; BASO ABS # 0.01 K/uL (0-0.2); COMPLETE YES; HEMATOCRIT 30.4 % (37-47); IG% 0.2 %; LYMPH % 9.2 %; LYMPH ABS # 1.21 K/uL (1.2-3.4); MEAN CELL VOLUME 96.8 fL (80-100); MEAN CORPUSCULAR HEMOGLOBIN 32.5 pg (25-34); MEAN CORPUSCULAR HGB CONC 33.6 g/dl (32-36); MEAN PLATELET VOLUME 9.4 fL (7.4-10.4); MONO % 5.1 %; NEUT % 84.4 %; PLATELET COUNT 294 K/uL (130-400); RED BLOOD COUNT 3.14 M/uL (4.2-5.4); WHITE BLOOD COUNT 13.12 K/uL (4.8-10.8)
[2017-07-02 06:43] LABS: BUN/CREATININE RATIO 21.4 (10-20); CALCIUM 7.7 mg/dl (8.5-10.1); CREATININE 0.84 mg/dl (0.60-1.20); MAGNESIUM 2.2 mg/dl (1.8-2.4); PHOSPHORUS 2.6 mg/dl (2.5-4.9); POTASSIUM 4.3 mmol/L (3.5-5.1)
[2017-07-02] MEDS: ASPIRIN 81 MG ECTAB PO SCH (07:25)
[2017-07-02] MEDS: CITALOPRAM 40 MG TAB PO SCH (07:25)
[2017-07-02] MEDS: BusPIRone 15 MG TAB PO SCH ×3 (07:25→21:39)
[2017-07-02] MEDS: MULTIVITAMIN TAB PO SCH (07:25)
[2017-07-02] MEDS: TICAGRELOR 90 MG TAB PO SCH ×2 (07:25→21:40)
[2017-07-02] MEDS: ATORVASTATIN 40 MG TAB PO SCH (07:25)
[2017-07-02] MEDS: INSULIN ASPART 100 UNITS/ML 3 ML PEN SC SCH ×3 (07:28→19:05)
--- NOTE | 2017-07-02 10:06 | Critical Care Progress Note ---
Critical Care Progress Note Date of Service Jul 02, 2017. ICU Day ICU Day Number: [address] Neal Subjective No complaints, resting comfortably upright in chair no chest pain no shortness of breath Objective Gen. alert and oriented 3 Pulmonary: CTAB Cardiovascular S1-S2 Current SOFA Score SOFA Score Response (Comments) Value Platelets (x10) > 150 0 Bilirubin (mg/dL) < 1.2 0 Mellott Coma Score 15 0 Level of Hypotension No Hypotension 0 Creatinine (mg/dL) < 1.2 0 Total 0 Assessment & Plan (1) Diabetes (2) Heart disease (3) HTN (hypertension) (4) STEMI (ST elevation myocardial infarction) (5) HLD (hyperlipidemia) ST [place] Percutaneous intervention with 2 drug-eluting stents to Prox to Mid Circumflex Status post Integrilin 18 hours Continue Brilinta and aspirin Continue atorvastatin 2.5 mg metoprolol was placed on hold due to hypotension restarted today PULMONARY Chronic every day smoker Hypoxic on presentation and requires supplemental O2 Placed on BiPAP and tolerated well. Holding IV fluids and diuresing Follow clinically Advised to quit smoking immediately ENDOCRINE Type 1 diabetes mellitus insulin dependent Poor control over the years with elevated hemoglobin A1c greater than 10 for several years Has been on similar insulin dosing Advised to follow with endocrinology on discharge Glycemic consult placed escrow clerk in to see patient today Discussed need for medication compliance with patient HYPERLIPIDEMIA Continue atorvastatin Follow serial labs as an outpatient as triglycerides are 252 PSYCH Appropriate affect Continue buspirone and citalopram RENAL Creatinine 0.84 Hold IV fluids for pulmonary edema Follow serial labs Mildly negative yesterday Goal to remain negative and next 24 hours Continue fluid restriction DVT PROPHYLAXIS SCDs / TEDs Continue Brilinta I discussed the case with Dr. Liliana strong for downgraded out of the ICU today. Consults & Procedures Consultants: Cardiology - Dr. Kinney Diabetic education Procedures: Right femoral CVC catheter placed 06/29/17 Right femoral CVC catheter removed 06/30/17 PCI with two drug-eluting stents placed perioperatively during cardiac catheterization 06/29/[address] Kinney Data Medications: Current Inpatient Medications Medications (Trade) Dose Ordered Sig/Mehul Route Start Time Stop Time Status Last Admin Dose Admin Aspirin (Ecotrin Tab) 81 mg QAM PO 06/30/17 09:00 07/30/17 08:59 07/02/17 07:25 81 MG Atorvastatin Calcium (Lipitor Tab) 80 mg QAM PO 06/30/17 09:00 07/30/17 08:59 07/02/17 07:25 80 MG Ticagrelor (Brilinta Tab) 90 mg BID PO 06/30/17 07:00 07/30/17 06:59 07/02/17 07:25 90 MG Acetaminophen (Tylenol Tab) 650 mg Q4H PRN PO 06/29/17 16:30 07/29/17 16:29 Norepinephrine Bitartrate 8 mg/ Dextrose 508 ml @ 0 mls/hr Q0M PRN IV 06/29/17 17:48 07/29/17 17:47 06/30/17 04:27 11.7 MLS/HR Buspirone HCl (BusPAR TAB) 15 mg TID PO 06/29/17 21:00 07/29/17 20:59 07/02/17 07:25 15 MG Citalopram Hydrobromide (celeXA TAB) 40 mg QAM PO 06/30/17 09:00 07/30/17 08:59 07/02/17 07:25 40 MG Metoprolol Tartrate (Lopressor Tab) 50 mg BID PO 06/29/17 21:00 07/29/17 20:59 Future Hold Multivitamins (Multivitamin Tab) 1 tab QAM PO 06/30/17 09:00 07/30/17 08:59 07/02/17 07:25 1 TAB Miscellaneous Information (Consult Glycemic Management Pharmacy) 1 ea UD PRN N/A 06/30/17 08:58 07/30/17 08:57 Insulin Glargine (Lantus Solostar Pen) QPM SC 06/30/17 21:00 07/30/17 20:59 07/01/17 21:02 50 UNITS Insulin Aspart (novoLOG ASPART) SLIDING SCALE ACHS SC 06/30/17 16:00 07/30/17 15:59 07/02/17 07:28 5 UNITS Levalbuterol (Xopenex 0.63 Mg/ 3 Ml Neb) 0.63 mg Q6R PRN INH 06/30/17 18:00 07/30/17 17:59 Metoprolol Tartrate (Lopressor Iv) 2.5 mg Q6 IV. 06/30/17 19:00 07/30/17 18:59 07/01/17 06:58 2.5 MG Ondansetron HCl (Zofran Inj) 4 mg Q6H PRN IV 07/01/17 14:45 07/31/17 14:44 Vital Signs: Date Time Temp Pulse Resp B/P (MAP) Pulse Ox O2 Delivery O2 Flow Rate FiO2 07/02/17 08:00 Nasal Cannula 2.5 07/02/17 08:00 104 30 99/65 (76) 96 Nasal Cannula 2.5 07/02/17 06:01 109 29 87/61 (70) 96 Nasal Cannula 2.5 07/02/17 05:40 103 99/62 07/02/17 05:23 104 28 99/62 (74) 95 Nasal Cannula 2.5 07/02/17 05:01 105 26 99/62 (74) 93 Nasal Cannula 2.5 07/02/17 04:01 37.0 100 18 89/55 (66) 97 Nasal Cannula 2.5 07/02/17 04:00 97 Nasal Cannula 2.5 07/02/17 03:01 100 22 93/61 (72) 98 Nasal Cannula 2.5 07/02/17 02:01 102 22 96/66 (76) 97 Nasal Cannula 2.5 07/02/17 01:01 98 20 88/62 (71) 98 Nasal Cannula 2.5 07/02/17 00:01 37.0 104 21 96/63 (74) 96 Nasal Cannula 2.5 07/01/17 23:59 97 Nasal Cannula 2.5 07/01/17 23:55 105 92/63 07/01/17 23:01 104 22 92/63 (73) 95 Nasal Cannula 2.5 07/01/17 22:01 103 28 81/54 (63) 96 Nasal Cannula 2.5 07/01/17 21:01 108 26 88/59 (69) 97 Nasal Cannula 2.5 07/01/17 20:01 37.0 109 28 86/54 (65) 96 Nasal Cannula 2.5 07/01/17 20:00 96 Nasal Cannula 2.5 07/01/17 18:00 115 25 77/51 (60) 98 Nasal Cannula 2.5 07/01/17 16:00 Nasal Cannula 2.5 07/01/17 16:00 36.8 121 24 91/56 (68) 95 Nasal Cannula 2.5 07/01/17 14:00 122 27 123/81 (95) 93 Nasal Cannula 2.5 07/01/17 12:00 36.9 119 28 111/70 (84) 93 Nasal Cannula 2.0 07/01/17 12:00 Nasal Cannula 2.5 07/01/17 12:00 118 07/01/17 10:00 113 22 82/58 (66) 95 Nasal Cannula 2.5 Laboratory Results: Last 24 Hours Test 07/01/17 11:18 07/01/17 15:58 07/01/17 16:13 07/01/17 20:41 Bedside Glucose 273 mg/dl 118 mg/dl 154 mg/dl Potassium Level 4.1 mmol/L Magnesium Level 2.1 mg/dl Test 07/02/17 05:45 White Blood Count 13.12 K/uL Red Blood Count 3.14 M/uL Hemoglobin 10.2 g/dL Hematocrit 30.4 % Mean Corpuscular Volume 96.8 fL Mean Corpuscular Hemoglobin 32.5 pg Mean Corpuscular Hemoglobin Concent 33.6 g/dl Platelet Count 294 K/uL Mean Platelet Volume 9.4 fL Neutrophils (%) (Auto) 84.4 % Lymphocytes (%) (Auto) 9.2 % Monocytes (%) (Auto) 5.1 % Eosinophils (%) (Auto) 1.0 % Basophils (%) (Auto) 0.1 % Neutrophils # (Auto) 11.07 K/uL Lymphocytes # (Auto) 1.21 K/uL Monocytes # (Auto) 0.67 K/uL Eosinophils # (Auto) 0.13 K/uL Basophils # (Auto) 0.01 K/uL RDW Standard Deviation 47.9 fL RDW Coefficient of Variation 13.6 % Immature Granulocyte % (Auto) 0.2 % Immature Granulocyte # (Auto) 0.03 K/uL Sodium Level 136 mmol/L Potassium Level 4.3 mmol/L Chloride Level 104 mmol/L Carbon Dioxide Level 25 mmol/L Anion Gap 7.0 mmol/L Blood Urea Nitrogen 18 mg/dl Creatinine 0.84 mg/dl Est Creatinine Clear Calc Drug Dose 77.8 ml/min Estimated GFR () 92.0 Estimated GFR (Non- 79.3 BUN/Creatinine Ratio 21.4 Random Glucose 103 mg/dl Calcium Level 7.7 mg/dl Phosphorus Level 2.6 mg/dl Magnesium Level 2.2 mg/dl Problem Qualifiers (1) STEMI (ST elevation myocardial infarction): Involved coronary artery: unspecified coronary artery Qualified Codes: I21.3 - ST elevation (STEMI) myocardial infarction of unspecified site
--- NOTE | 2017-07-02 10:51 | Pharmacy Progress Note ---
Glycemic Control Progress Note Date of Service Jul 02, 2017. Scope Glycemic Pharmacist consulted for glycemic control to write orders per [facility] inpatient glycemic control protocol. Objective Accuchecks BSG (last 24hrs): Test 07/01/17 11:18 07/01/17 16:13 07/01/17 20:41 07/02/17 05:45 Bedside Glucose 273 mg/dl (70-90) 118 mg/dl (70-90) 154 mg/dl (70-90) Random Glucose 103 mg/dl (70-99) HbA1c: Test 06/30/17 05:10 Hemoglobin A1c 11.7 % (4.5-5.6) H Recent Pertinent Medications The patient is currently receiving: * Basal insulin: Lantus SQ 25-55 unit Q HS per scale; has received 50 units SQ HS last 2 nights * Correctional Insulin: Novolog Correction per scale ACHS Goal Range: Low 120 mg/dL - High 160 mg/dL Correction Factor: 15 mg/dL/unit * Prandial insulin: Per carb ratio of 1 unit per 5 grams CHO consumed * Oral Agents: None currently Outpatient Anti-Diabetic Meds * Lantus 55 units SC qPM (note: previously listed as BID but clarified w patient. qPM dosing only is also similar to previous admission) * Novolog SC TIDM (15/ units per patient) * A1c = 11.7 % 06/30/17 Assessment & Plan ASSESSMENT: 07/02/17 * Glycemic control has been acceptable over the last 24 hours * BSGs have ranged 103-273 over the last 24 hours, only one of these BSGs was above 180 * Fasting BSG 103 this AM with 50 units Lantus on board. I anticipate the patient to require ~45-50units Q HS to achieve fasting goal of 110-140. Will adjust scale on Lantus to allow for slightly less in the evenings as we approach steady-state secondary to downward trend in AM FBS * Novolog CF and CR performed well the second half of the day yesterday. Continue same for now and follow BSG pattern. PLAN FOR INPATIENT GLYCEMIC CONTROL: * Decreasing Lantus SQ Q HS to: * 30 units if BSG less than 110 * 45 units if BSG 110-180 * 50 units if BSG above 180 * Continuing correction factor 15 mg/dl/unit * Continuing carb ratio 1 unit per 5 grams CHO consumed * Continuing goal range Low 120 mg/dL - High 160 mg/dL * Please note that the plan above was derived based on current level of insulin resistance and hospital stress. These recommendations are appropriate for inpatient admission only. Plan of care upon discharge will need to be reassessed to avoid potential outpatient hypo/hyperglycemia. Thank you.
--- NOTE | 2017-07-02 11:13 | Cardiology Follow-Up ---
Subjective Subjective Date of Service: Jul 02, 2017. Pt evaluation today including: conversation w/ patient, physical exam, chart review, lab review, review of studies, conversation w/ customer experience consultant, review of inpatient medication list Additional Details: Breathing feels easier today. No chest pain. Negative 1100 yesterday Tele reviewed -- no events. Problem List Medical Problems: (1) Cellulitis Status: Acute (2) Cellulitis Status: Acute Review of Systems Constitutional: No fever Eyes: No worsening of vision ENT: No hearing loss Respiratory: + shortness of breath, No cough Cardiac: No chest pain Abdomen: No pain Neurologic: + weakness Heme: No abnormal bleeding/bruising Skin: No rash Objective Vital Signs Last Vital Signs Documentation Date Time Temp Pulse Resp B/P (MAP) Pulse Ox O2 Delivery O2 Flow Rate FiO2 07/02/17 10:03 37.3 105 24 100/63 (75) 96 Nasal Cannula 2.5 06/30/17 16:00 40 Physical Exam: General Appearance: no apparent distress ENT: hearing grossly normal Neck: trachea midline Respiratory/Chest: no respiratory distress, no accessory muscle use, + decreased breath sounds (at the bases bilaterally, otherwise no wheezes or crackles) Cardiovascular: no murmur, + tachycardia (with a regular rhythm) Abdomen: normal bowel sounds, non tender, soft Extremities: no calf tenderness, + pedal edema (trace edema ) Neurologic/Psychiatric: alert, normal mood/affect, oriented x 3 Skin: normal color, warm/dry, no rash Assessment and Plan 1. Inferior STEMI -- acute on chronic distal LCx occlusion s/p PPCI with 2 ASHLEY complicated by slow reflow 2. Multivessel CAD -- 95% small mid RCA 3. ADHF/Ischemic cardiomyopathy -- EF 35-40%, inferior/inferolateral akinesis 4. Cardiogenic shock -- off pressors 5. Respiratory failure -- ADHF/sedation/?aspiration pneumonitis; on 2L 6. Anemia -- stable 7. Diabetes -- off insulin drip Good diuresis yesterday, improved breathing today. Mild residual congestion. Hemodynamically and electrically stable. -- Continue diuresis today -- IV diuretic x1--> target goal 500-1 L negative -- Restart beta-derick --> metoprolol 12.5 BID -- continue DAPT with ASA/Ticagrelor -- statin -- LAURENCE on hold -- Will hold off on RCA intervention until more stable -- From a cardiac standpoint OK for transfer to telemetry today. -- Appreciate ICU/Hospital medicine teams care. Medications: Current Inpatient Medications Medications (Trade) Dose Ordered Sig/Mehul Route Start Time Stop Time Status Last Admin Dose Admin Aspirin (Ecotrin Tab) 81 mg QAM PO 06/30/17 09:00 18 08:59 07/02/17 07:25 81 MG Atorvastatin Calcium (Lipitor Tab) 80 mg QAM PO 06/30/17 09:00 07/30/17 08:59 07/02/17 07:25 80 MG Ticagrelor (Brilinta Tab) 90 mg BID PO 06/30/17 07:00 07/30/17 06:59 07/02/17 07:25 90 MG Acetaminophen (Tylenol Tab) 650 mg Q4H PRN PO 06/29/17 16:30 07/29/17 16:29 Norepinephrine Bitartrate 8 mg/ Dextrose 508 ml @ 0 mls/hr Q0M PRN IV 06/29/17 17:48 07/29/17 17:47 06/30/17 04:27 11.7 MLS/HR Buspirone HCl (BusPAR TAB) 15 mg TID PO 06/29/17 21:00 07/29/17 20:59 07/02/17 07:25 15 MG Citalopram Hydrobromide (celeXA TAB) 40 mg QAM PO 06/30/17 09:00 07/30/17 08:59 07/02/17 07:25 40 MG Metoprolol Tartrate (Lopressor Tab) 50 mg BID PO 06/29/17 21:00 07/29/17 20:59 Future Hold Multivitamins (Multivitamin Tab) 1 tab QAM PO 06/30/17 09:00 07/30/17 08:59 07/02/17 07:25 1 TAB Miscellaneous Information (Consult Glycemic Management Pharmacy) 1 ea UD PRN N/A 06/30/17 08:58 07/30/17 08:57 Insulin Aspart (novoLOG ASPART) SLIDING SCALE ACHS SC 06/30/17 16:00 07/30/17 15:59 07/02/17 07:28 5 UNITS Levalbuterol (Xopenex 0.63 Mg/ 3 Ml Neb) 0.63 mg Q6R PRN INH 06/30/17 18:00 07/30/17 17:59 Metoprolol Tartrate (Lopressor Iv) 2.5 mg Q6 IV. 06/30/17 19:00 18 18:59 07/01/17 06:58 2.5 MG Ondansetron HCl (Zofran Inj) 4 mg Q6H PRN IV 07/01/17 14:45 07/31/17 14:44 Insulin Glargine (Lantus Solostar Pen) see protocol text QPM SC 07/02/17 21:00 08/01/17 20:59 Lab Results: 07/02/17 05:45 Red Blood Count 3.14, Mean Corpuscular Volume 96.8, Mean Corpuscular Hemoglobin 32.5, Mean Corpuscular Hemoglobin Concent 33.6, Mean Platelet Volume 9.4, Neutrophils (%) (Auto) 84.4, Lymphocytes (%) (Auto) 9.2, Monocytes (%) (Auto) 5.1, Eosinophils (%) (Auto) 1.0, Basophils (%) (Auto) 0.1, Neutrophils # (Auto) 11.07, Lymphocytes # (Auto) 1.21, Monocytes # (Auto) 0.67, Eosinophils # (Auto) 0.13, Basophils # (Auto) 0.01 07/02/17 05:45 Test 07/01/17 20:41 07/02/17 05:45 Bedside Glucose 154 mg/dl (70-90) White Blood Count 13.12 K/uL (4.8-10.8) Red Blood Count 3.14 M/uL (4.2-5.4) Hemoglobin 10.2 g/dL (12.0-16.0) Hematocrit 30.4 % (37-47) Mean Corpuscular Volume 96.8 fL (80-100) Mean Corpuscular Hemoglobin 32.5 pg (25-34) Mean Corpuscular Hemoglobin Concent 33.6 g/dl (32-36) Platelet Count 294 K/uL (130-400) Mean Platelet Volume 9.4 fL (7.4-10.4) Neutrophils (%) (Auto) 84.4 % Lymphocytes (%) (Auto) 9.2 % Monocytes (%) (Auto) 5.1 % Eosinophils (%) (Auto) 1.0 % Basophils (%) (Auto) 0.1 % Neutrophils # (Auto) 11.07 K/uL (1.4-6.5) Lymphocytes # (Auto) 1.21 K/uL (1.2-3.4) Monocytes # (Auto) 0.67 K/uL (0.11-0.59) Eosinophils # (Auto) 0.13 K/uL (0-0.5) Basophils # (Auto) 0.01 K/uL (0-0.2) RDW Standard Deviation 47.9 fL (36.4-46.3) RDW Coefficient of Variation 13.6 % (11.5-14.5) Immature Granulocyte % (Auto) 0.2 % Immature Granulocyte # (Auto) 0.03 K/uL (0.00-0.02) Anion Gap 7.0 mmol/L (3-11) Est Creatinine Clear Calc Drug Dose 77.8 ml/min Estimated GFR () 92.0 Estimated GFR (Non- 79.3 BUN/Creatinine Ratio 21.4 (10-20) Calcium Level 7.7 mg/dl (8.5-10.1) Phosphorus Level 2.6 mg/dl (2.5-4.9) Magnesium Level 2.2 mg/dl (1.8-2.4)
[2017-07-02] MEDS ORDERED: METOPROLOL TARTRATE 25 MG TAB PO ONE (11:30)
[2017-07-02] MEDS ORDERED: NURSING VERBAL MED ORDER ONE (11:30)
[2017-07-02] MEDS ORDERED: BUMETANIDE IV 1 MG in SYRINGE 0 ML IV ONE (11:45)
--- NOTE | 2017-07-02 19:50 | Hospitalist Progress Note ---
Hospitalist Progress Note Date of Service Jul 02, 2017. Subjective Pt evaluation today including: conversation w/ patient, conversation w/ family Pt feeling much better. Has diuresed today. No chest pain All Other Systems: Reviewed and Negative Objective Vital Signs Date Time Temp Pulse Resp B/P (MAP) Pulse Ox O2 Delivery O2 Flow Rate FiO2 07/02/17 15:36 37.3 111 19 104/66 (79) 92 Nasal Cannula 1.0 07/02/17 15:30 Room Air 07/02/17 13:14 36.8 112 20 93/58 (70) 96 Nasal Cannula 2.0 07/02/17 12:03 108 20 102/70 (81) 95 Nasal Cannula 2.0 07/02/17 12:00 Nasal Cannula 2.5 07/02/17 10:03 37.3 105 24 100/63 (75) 96 Nasal Cannula 2.5 07/02/17 08:00 Nasal Cannula 2.5 07/02/17 08:00 104 30 99/65 (76) 96 Nasal Cannula 2.5 07/02/17 06:01 109 29 87/61 (70) 96 Nasal Cannula 2.5 07/02/17 05:40 103 99/62 07/02/17 05:23 104 28 99/62 (74) 95 Nasal Cannula 2.5 07/02/17 05:01 105 26 99/62 (74) 93 Nasal Cannula 2.5 07/02/17 04:01 37.0 100 18 89/55 (66) 97 Nasal Cannula 2.5 07/02/17 04:00 97 Nasal Cannula 2.5 07/02/17 03:01 100 22 93/61 (72) 98 Nasal Cannula 2.5 07/02/17 02:01 102 22 96/66 (76) 97 Nasal Cannula 2.5 07/02/17 01:01 98 20 88/62 (71) 98 Nasal Cannula 2.5 07/02/17 00:01 37.0 104 21 96/63 (74) 96 Nasal Cannula 2.5 07/01/17 23:59 97 Nasal Cannula 2.5 07/01/17 23:55 105 92/63 07/01/17 23:01 104 22 92/63 (73) 95 Nasal Cannula 2.5 07/01/17 22:01 103 28 81/54 (63) 96 Nasal Cannula 2.5 07/01/17 21:01 108 26 88/59 (69) 97 Nasal Cannula 2.5 07/01/17 20:01 37.0 109 28 86/54 (65) 96 Nasal Cannula 2.5 07/01/17 20:00 96 Nasal Cannula 2.5 Physical Exam General Appearance: WD/WN, no apparent distress Eyes: normal inspection, sclerae normal ENT: hearing grossly normal Neck: trachea midline Respiratory/Chest: normal breath sounds, no respiratory distress, no accessory muscle use, + decreased breath sounds (at the bases) Cardiovascular: no edema, no gallop, no murmur, + tachycardia (with regular rhythm) Abdomen: normal bowel sounds, non tender, soft Extremities: no pedal edema, no calf tenderness Neurologic/Psychiatric: alert, normal mood/affect, oriented x 3 Skin: normal color, warm/dry, no rash Laboratory Results Last 24 Hours Test 07/01/17 20:41 07/02/17 05:45 07/02/17 11:22 07/02/17 18:58 Bedside Glucose 154 mg/dl 194 mg/dl 385 mg/dl White Blood Count 13.12 K/uL Red Blood Count 3.14 M/uL Hemoglobin 10.2 g/dL Hematocrit 30.4 % Mean Corpuscular Volume 96.8 fL Mean Corpuscular Hemoglobin 32.5 pg Mean Corpuscular Hemoglobin Concent 33.6 g/dl Platelet Count 294 K/uL Mean Platelet Volume 9.4 fL Neutrophils (%) (Auto) 84.4 % Lymphocytes (%) (Auto) 9.2 % Monocytes (%) (Auto) 5.1 % Eosinophils (%) (Auto) 1.0 % Basophils (%) (Auto) 0.1 % Neutrophils # (Auto) 11.07 K/uL Lymphocytes # (Auto) 1.21 K/uL Monocytes # (Auto) 0.67 K/uL Eosinophils # (Auto) 0.13 K/uL Basophils # (Auto) 0.01 K/uL RDW Standard Deviation 47.9 fL RDW Coefficient of Variation 13.6 % Immature Granulocyte % (Auto) 0.2 % Immature Granulocyte # (Auto) 0.03 K/uL Sodium Level 136 mmol/L Potassium Level 4.3 mmol/L Chloride Level 104 mmol/L Carbon Dioxide Level 25 mmol/L Anion Gap 7.0 mmol/L Blood Urea Nitrogen 18 mg/dl Creatinine 0.84 mg/dl Est Creatinine Clear Calc Drug Dose 77.8 ml/min Estimated GFR () 92.0 Estimated GFR (Non- 79.3 BUN/Creatinine Ratio 21.4 Random Glucose 103 mg/dl Calcium Level 7.7 mg/dl Phosphorus Level 2.6 mg/dl Magnesium Level 2.2 mg/dl Assessment and Plan Pt is a 52-year-old female with a history of uncontrolled diabetes mellitus type I, hypertension, severe CAD, current smoker, PAD, depression/anxiety, here with STEMI now status post stent placement to the circumflex artery. Also with acute hypoxemic and hypercapnic respiratory failure and severe hypotension and cardiogenic shock requiring vasopressors. STEMI/Cardiogenic shock/Acute diastolic and systolic CHF/severe CAD-s/p ASHLEY x 2 to the Cx artery 06/29. Is now weaned off Levophed, BPs remain low and remains in sinus tachycardia despite use of metoprolol. No further chest pain. Had worsened pulm edema and bilateral pleural effusions on chest x-ray 07/01 which improved with IV lasix, as well as IV Bumex. Troponins peaked at 28 and now trending downward. Continues to diurese with another dose of Bumex today ECHO 06/30 with: * Left ventricular systolic function is moderately reduced, 35-40%. * There appears to be an element of restrictive diastolic filling * There are regional wall motion abnormalities as specified. * The right ventricular systolic function is reduced as assessed by tricuspid annular plane systolic excursion (TAPSE) (TAPSE <1.6 cm). * There is mild to moderate mitral regurgitation. * There is mild to moderate tricuspid regurgitation. * Right ventricular systolic pressure is elevated at 30-40mmHg. -Appreciate Cardiology and Router Operator management -continue aspirin, Brillinta, high intensity statin which she was not on at home , eventually on an LAURENCE inhibitor when her blood pressures improve -Cardiology ordered metoprolol 12.5 mg by mouth twice a day to start today, caution with hypotension but remains tachycardic -IV diuresis on a day-to-day basis -Transferred to telemetry today Acute hypoxemic and hypercapnic respiratory failure/Current smoker-secondary to combination of Acute combined systolic/diastolic CHF, suspected COPD, possible aspiration pneumonitis from acute vomiting episode 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 Required BiPAP support x 24 hrs, now weaned off. ABG at time of cath pH 7.24/PaCO2 51/PA O2 37. Remains on nasal cannula-stable Long time smoker, likely has COPD -follow sats, wean O2 as tolerated -diuresing as above -levalbuterol nebs as needed -will need formal PFTs as outpt -is now committed to smoking cessation DMI-uncontrolled, on terminal manager insulin, with hyperglycemia. HgbA1C here 11.7% which is not far off from her usual. Glucose is still labile--was on an insulin drip and now weaned off in the ICU -continue Lantus and increase to 55 units for tonight -Sliding scale insulin with carb coverage and tight correction factor Proph-SCDs, ASA, Brillinta Dispo-to home when medically stable FULL CODE
[2017-07-02] MEDS ORDERED: INSULIN GLARGINE SOLOSTAR 100 UNITS/ML 3 ML PEN SC SCH ×2 (21:00)
[2017-07-02] MEDS: METOPROLOL TARTRATE 25 MG TAB PO SCH (21:39)
[2017-07-03] VITALS (7 sets, daily range): BP systolic 86–122; BP diastolic 57–71; PULSE 74–107; TEMP 36.2–37.2; O2SAT 92–97
[2017-07-03] MEDS: INSULIN ASPART 100 UNITS/ML 3 ML PEN SC SCH ×4 (00:02→17:10)
[2017-07-03 06:08] LABS: BASO % 0.1 %; BASO ABS # 0.01 K/uL (0-0.2); COMPLETE YES; EOS % 1.3 %; IG% 0.4 %; LYMPH % 11.6 %; LYMPH ABS # 1.25 K/uL (1.2-3.4); MEAN CELL VOLUME 95.7 fL (80-100); MEAN CORPUSCULAR HGB CONC 32.4 g/dl (32-36); MEAN PLATELET VOLUME 9.5 fL (7.4-10.4); MONO % 6.1 %; NEUT % 80.5 %; PLATELET COUNT 350 K/uL (130-400); RED BLOOD COUNT 3.03 M/uL (4.2-5.4)
[2017-07-03 06:33] LABS: BUN/CREATININE RATIO 33.3 (10-20); CALCIUM 8.2 mg/dl (8.5-10.1); CREATININE 0.84 mg/dl (0.60-1.20); MAGNESIUM 2.3 mg/dl (1.8-2.4); POTASSIUM 3.6 mmol/L (3.5-5.1)
[2017-07-03] MEDS: CITALOPRAM 40 MG TAB PO SCH (08:30)
[2017-07-03] MEDS: TICAGRELOR 90 MG TAB PO SCH (08:30)
[2017-07-03] MEDS: ATORVASTATIN 40 MG TAB PO SCH (08:30)
[2017-07-03] MEDS: BusPIRone 15 MG TAB PO SCH ×2 (08:30→14:00)
[2017-07-03] MEDS: ASPIRIN 81 MG ECTAB PO SCH (08:30)
[2017-07-03] MEDS: MULTIVITAMIN TAB PO SCH (08:30)
[2017-07-03] MEDS: METOPROLOL TARTRATE 25 MG TAB PO SCH (08:31)
--- NOTE | 2017-07-03 09:56 | Cardiology Follow-Up ---
Subjective Subjective Date of Service: Jul 03, 2017. Pt evaluation today including: conversation w/ patient, physical exam, chart review, lab review, review of studies, review of inpatient medication list Additional Details: Feeling well. Minimal cough when lying flat. No chest pain. No events on telemetry. Negative 1800 yesterday Problem List Medical Problems: (1) Cellulitis Status: Acute (2) Cellulitis Status: Acute Review of Systems Constitutional: No fever Eyes: No worsening of vision ENT: No hearing loss Respiratory: + cough, + shortness of breath Cardiac: No chest pain Abdomen: No pain Neurologic: + weakness Heme: No abnormal bleeding/bruising Skin: No rash Objective Vital Signs Last Vital Signs Documentation Date Time Temp Pulse Resp B/P (MAP) Pulse Ox O2 Delivery O2 Flow Rate FiO2 07/03/17 07:35 36.8 103 18 98/68 (78) 95 Nasal Cannula 2.0 06/30/17 16:00 40 Physical Exam: General Appearance: no apparent distress ENT: hearing grossly normal Neck: trachea midline Respiratory/Chest: normal breath sounds, no respiratory distress, no accessory muscle use, + decreased breath sounds (at right base) Cardiovascular: no edema, no gallop, no murmur, + tachycardia (with regular rhythm) Abdomen: normal bowel sounds, non tender, soft Extremities: no pedal edema, no calf tenderness Neurologic/Psychiatric: alert, normal mood/affect, oriented x 3 Skin: normal color, warm/dry, no rash Assessment and Plan 1. Inferior STEMI -- acute on chronic distal LCx occlusion s/p PPCI with 2 ASHLEY complicated by slow reflow 2. Multivessel CAD -- 95% small mid RCA 3. ADHF/Ischemic cardiomyopathy -- EF 35-40%, inferior/inferolateral akinesis 4. Cardiogenic shock -- off pressors 5. Respiratory failure -- ADHF/sedation/?aspiration pneumonitis; on room air 6. Anemia -- stable 7. Diabetes -- off insulin drip Good diuresis yesterday -- off supplemental O2 today. Well perfused on exam. Minimal residual congestion on exam. -- Convert to PO diuretics today --> start lasix 40mg PO now and continue on discharge. -- Up walking halls today --> if tolerates OK for discharge this afternoon or tomorrow AM. -- On discharge -- Cardiac meds: -- Aspirin 81 mg daily -- Ticagrelor 90 mg BID -- Atorvastatin 80 mg daily -- Lasix 40mg daily -- LAURENCE ON HOLD AT DISCHARGE DUE TO LOW BLOOD PRESSURES--> will start as an outpatient. -- Discussed salt restriction and daily weights. -- Follow-up with Cardiology on Friday 07/06 -- Will consider RCA intervention at some point as an outpatient. Medications: Current Inpatient Medications Medications (Trade) Dose Ordered Sig/Mehul Route Start Time Stop Time Status Last Admin Dose Admin Aspirin (Ecotrin Tab) 81 mg QAM PO 06/30/17 09:00 07/30/17 08:59 07/03/17 08:30 81 MG Atorvastatin Calcium (Lipitor Tab) 80 mg QAM PO 06/30/17 09:00 07/30/17 08:59 07/03/17 08:30 80 MG Ticagrelor (Brilinta Tab) 90 mg BID PO 06/30/17 07:00 07/30/17 06:59 07/03/17 08:30 90 MG Acetaminophen (Tylenol Tab) 650 mg Q4H PRN PO 06/29/17 16:30 07/29/17 16:29 Buspirone HCl (BusPAR TAB) 15 mg TID PO 06/29/17 21:00 07/29/17 20:59 07/03/17 08:30 15 MG Citalopram Hydrobromide (celeXA TAB) 40 mg QAM PO 06/30/17 09:00 07/30/17 08:59 07/03/17 08:30 40 MG Multivitamins (Multivitamin Tab) 1 tab QAM PO 06/30/17 09:00 07/30/17 08:59 07/03/17 08:30 1 TAB Insulin Aspart (novoLOG ASPART) SLIDING SCALE ACHS SC 06/30/17 16:00 07/30/17 15:59 07/03/17 08:33 6 UNITS Levalbuterol (Xopenex 0.63 Mg/ 3 Ml Neb) 0.63 mg Q6R PRN INH 06/30/17 18:00 07/30/17 17:59 Ondansetron HCl (Zofran Inj) 4 mg Q6H PRN IV 07/01/17 14:45 07/31/17 14:44 Metoprolol Tartrate (Lopressor Tab) 12.5 mg BID PO 07/02/17 21:00 08/01/17 20:59 07/02/17 21:39 12.5 MG Insulin Glargine (Lantus Solostar Pen) 55 units QPM SC 07/02/17 21:00 08/01/17 20:59 07/02/17 21:42 55 UNITS Lab Results: 07/03/17 05:35 Red Blood Count 3.03, Mean Corpuscular Volume 95.7, Mean Corpuscular Hemoglobin 31.0, Mean Corpuscular Hemoglobin Concent 32.4, Mean Platelet Volume 9.5, Neutrophils (%) (Auto) 80.5, Lymphocytes (%) (Auto) 11.6, Monocytes (%) (Auto) 6.1, Eosinophils (%) (Auto) 1.3, Basophils (%) (Auto) 0.1, Neutrophils # (Auto) 8.70, Lymphocytes # (Auto) 1.25, Monocytes # (Auto) 0.66, Eosinophils # (Auto) 0.14, Basophils # (Auto) 0.01 07/03/17 05:35 Test 07/03/17 05:35 07/03/17 06:34 White Blood Count 10.80 K/uL (4.8-10.8) Red Blood Count 3.03 M/uL (4.2-5.4) Hemoglobin 9.4 g/dL (12.0-16.0) Hematocrit 29.0 % (37-47) Mean Corpuscular Volume 95.7 fL (80-100) Mean Corpuscular Hemoglobin 31.0 pg (25-34) Mean Corpuscular Hemoglobin Concent 32.4 g/dl (32-36) Platelet Count 350 K/uL (130-400) Mean Platelet Volume 9.5 fL (7.4-10.4) Neutrophils (%) (Auto) 80.5 % Lymphocytes (%) (Auto) 11.6 % Monocytes (%) (Auto) 6.1 % Eosinophils (%) (Auto) 1.3 % Basophils (%) (Auto) 0.1 % Neutrophils # (Auto) 8.70 K/uL (1.4-6.5) Lymphocytes # (Auto) 1.25 K/uL (1.2-3.4) Monocytes # (Auto) 0.66 K/uL (0.11-0.59) Eosinophils # (Auto) 0.14 K/uL (0-0.5) Basophils # (Auto) 0.01 K/uL (0-0.2) RDW Standard Deviation 45.8 fL (36.4-46.3) RDW Coefficient of Variation 13.1 % (11.5-14.5) Immature Granulocyte % (Auto) 0.4 % Immature Granulocyte # (Auto) 0.04 K/uL (0.00-0.02) Anion Gap 7.0 mmol/L (3-11) Est Creatinine Clear Calc Drug Dose 77.4 ml/min Estimated GFR () 92.0 Estimated GFR (Non- 79.3 BUN/Creatinine Ratio 33.3 (10-20) Calcium Level 8.2 mg/dl (8.5-10.1) Magnesium Level 2.3 mg/dl (1.8-2.4) Bedside Glucose 91 mg/dl (70-90)
[2017-07-03] MEDS ORDERED: FUROSEMIDE 40 MG TAB PO SCH (10:00)
--- NOTE | 2017-07-03 12:08 | Pharmacy Progress Note ---
Glycemic Control Progress Note Date of Service Jul 03, 2017. Scope Glycemic Pharmacist consulted for glycemic control to write orders per [facility] inpatient glycemic control protocol. Objective Accuchecks BSG (last 24hrs): Test 07/02/17 18:58 07/03/17 00:00 07/03/17 05:35 07/03/17 06:34 Bedside Glucose 385 mg/dl (70-90) 141 mg/dl (70-90) 91 mg/dl (70-90) Random Glucose 84 mg/dl (70-99) Test 07/03/17 11:20 Bedside Glucose 219 mg/dl (70-90) HbA1c: Test 06/30/17 05:10 Hemoglobin A1c 11.7 % (4.5-5.6) H Recent Pertinent Medications The patient is currently receiving: * Basal insulin: Lantus 55 unit Q HS started 07/02 * Correctional Insulin: Novolog Correction per scale ACHS Goal Range: Low 120 mg/dL - High 160 mg/dL Correction Factor: 10 mg/dL/unit * Prandial insulin: Per carb ratio of 1 unit per 5 grams CHO consumed * Oral Agents: None currently Outpatient Anti-Diabetic Meds * Lantus 55 units SC qPM (note: previously listed as BID but clarified w patient. qPM dosing only is also similar to previous admission) * Novolog SC TIDM (15 units per patient) * A1c = 11.7 % 06/30/17 Assessment & Plan ASSESSMENT: 07/02/17 * Glycemic control has been acceptable over the last 24 hours * BSGs have ranged 103-273 over the last 24 hours, only one of these BSGs was above 180 * Fasting BSG 103 this AM with 50 units Lantus on board. I anticipate the patient to require ~45-50units Q HS to achieve fasting goal of 110-140. Will adjust scale on Lantus to allow for slightly less in the evenings as we approach steady-state secondary to downward trend in AM FBS * Novolog CF and CR performed well the second half of the day yesterday. Continue same for now and follow BSG pattern. 07/03/17 * Post-prandial hyperglycemia became problematic yesterday afternoon. BSG climbed to 385 w/ dinner a clear outlier compared to prior post-prandial BSGs. Dr Miller had adjusted insulin regimen to address hyperglycemia (increased Lantus to home dose of 55 units Q HS and changed CF to 10mg/dL/unit). * This AM fasting BSG 84-91 with 55 units of Lantus on board. I do fear this may be too much for her given fasting BSG trend - however will not adjust hospitalist's order. If fasting hypoglycemia observed tomorrow would recommend scaling dose back. * Will increase prandial insulin dose w/ meals to address post-prandial hyperglycemia PLAN FOR INPATIENT GLYCEMIC CONTROL: * Continue Lantus 55 units Q HS per hospitalist's order; decrease dose tomorrow if fasting hypoglycemia develops * Changing correction factor to 12 mg/dl/unit * Changing carb ratio 1 unit per 4 grams CHO consumed * Changing goal range to Low 110 mg/dL - High 140 mg/dL * Please note that the plan above was derived based on current level of insulin resistance and hospital stress. These recommendations are appropriate for inpatient admission only. Plan of care upon discharge will need to be reassessed to avoid potential outpatient hypo/hyperglycemia. Thank you.
[2017-07-03] MEDS ORDERED: LSX40 PO (14:42)
[2017-07-03] MEDS ORDERED: LPT40 PO (14:42)
[2017-07-03] MEDS ORDERED: BRL90 PO (14:42)
[2017-07-03] MEDS ORDERED: LPR25 PO (14:42)
[2017-07-03] MEDS ORDERED: INSDGIPEN SC (14:42)
--- NOTE | 2017-07-03 14:48 | Discharge Instructions ---
Discharge Instructions Date of Service Jul 03, 2017. Admission Reason for Admission: Stemi, St Elevation Myocardial Infarction.. Discharge Discharge Diagnosis / Problem: Acute Myocardial Infarction Discharge Goals Goal(s): Decrease discomfort, Improve function, Increase independence Activity Recommendations Activity Limitations: resume your previous activity . Instructions / Follow-Up Instructions / Follow-Up You should monitor your blood sugars regularly. Try to take a fasting blood sugar first thing in the morning before you eat, as well as checking several times throughout the day. You should write these down and take them to your next PCP appointment. You should continue to working on your diet. Try to avoid potatoes, corn, and rice as they have a lot of carbs. You should also avoid soda, even diet soda. You should decrease your salt intake as well. Mrs Leander is a good salt substitute, but lemon and vinegar can also add a lot of flavor without the salt. Soda has salt in it too and you should avoid soda for this reason as well. You will not be able to use a nicotine patch in the near future due to your recent heart attack. If you have issues with ongoing tobacco use, you should discuss wellbutrin or other medications that can help with smoking cessation. See Dr. Kinney this week as they schedule you for See. Dr. Oneil in 2 weeks, take your blood sugars with you to all visits with Dr. Oneil. Home Care: * Take your medications exactly as directed. Don't skip doses. * Remember that recovery after a heart attack takes time. Plan to rest for at lease 4-8 weeks while you recover. Then return to normal activity when your doctor says it's okay. * Ask your doctor about joining a heart rehabilitation program. * Tell your doctor if you are feeling depressed. Feelings of sadness are common after a heart attack, but it is important that you speak to someone if you are feeling overwhelmed by these feelings. * If you are having chest pain, call 911 for an ambulance. Do NOT drive yourself to the hospital. * Ask your family members to learn CPR. * Learn to take your own blood pressure and pulse. Keep a record of your results. Ask your doctor when you should seek emergency medical attention. He or she will tell you which blood pressure reading is dangerous. Lifestyle Changes: * Maintain a healthy weight. Get help to lose any extra pounds. * Cut back on salt. * Limit canned, dried, packaged, and fast foods. * Don't add salt to your food. * Season foods with herbs instead of salt when you cook. * Break the smoking habit. Enroll in a stop-smoking program to improve your chances of success. * Limit fatty foods. * Ask your doctor about having your lipid levels checked regularly. * Build up your activity according to your doctor's recommendation. * Ask your doctor when it's okay to resume sexual activity. * Try to manage stress. Follow Up: It is important for you to keep your follow up appointments with your medical provider. Current Hospital Diet Patient's current hospital diet: AHA Diet (Heart Healthy), Diabetes Type 2 Diet , Low Sodium Diet (2gm Na) Discharge Diet Recommended Diet: Low Sodium Diet (2gm Na), Diabetes Type 2 Diet Pending Studies Studies pending at discharge: no Laboratory Results Hemoglobin A1c Test 06/30/17 05:10 Range/Units Estimated Average Glucose 289 mg/dl Hemoglobin A1c 11.7 H 4.5-5.6 % Lipid Panel Test 06/30/17 05:10 Range/Units Triglycerides Level 252 H 0-150 mg/dl Cholesterol Level 158 0-200 mg/dl HDL Cholesterol 29 mg/dl Cholesterol/HDL Ratio 5.4 LDL Cholesterol, Calculated 79 mg/dl Medical Emergencies . Who to Call and When: Medical Emergencies: If at any time you feel your situation is an emergency, please call 911 immediately. Call 911 immediately or go to your nearest Emergency Room if you experience any of the following: Warning Signs and Symptoms of a Heart Attack * Chest pain that is not relieved by medication * Shortness of breath . Non-Emergent Contact Non-Emergency issues call your: Primary Care Provider . . "Provider Documentation" section prepared by Meghana Adler. . AMI Core Measures Reason no ASA as I/P: Treatment provided - N/A Reason no ASA at D/C: Treatment provided - N/A Reason no statin as I/P: Treatment provided - N/A Reason no statin at D/C: Treatment provided - N/A VTE Core Measure Inpt VTE Proph given/why not?: Other Anticoagulation
--- NOTE | 2017-07-03 14:59 | Discharge Summary ---
Discharge Summary Date of Service Jul 03, 2017. Discharge Summary Admission Date: Jun 29, 2017 at 16:46 Discharge Date: Jul 03, 2017 Discharge Disposition: Home Principal Diagnosis: STEMI Problems/Secondary Diagnoses: DM-uncontrolled CAD HTN Hyperlipidemia Depression Anemia ?? COPD Immunizations: Have You Had Influenza Vaccine: Yes Influenza Vaccine Date: May 11, 2005 History of Tetanus Vaccine?: Unknown History of Pneumococcal: Yes Pneumococcal Date: May 11, 2001 History of Hepatitis B Vaccine: No Procedures: Cath 06/29 with circumflex stent x2 Consultations: Dr. Kinney (cardiology) Medication Reconciliation New Medications: Atorvastatin (Atorvastatin Calcium) 40 Mg Tab 80 MG PO QAM for 30 Days, #60 TAB Furosemide (Furosemide) 40 Mg Tab 40 MG PO QAM for 30 Days, #30 TAB Insulin Glargine (Lantus Solostar) 100 Unit/Ml Inj 60 UNITS SC QPM for 30 Days Metoprolol Tartrate (Lopressor) 25 Mg Tab 12.5 MG PO BID for 30 Days, #30 TAB Ticagrelor (Brilinta) 90 Mg Tab 90 MG PO BID for 30 Days, #60 TAB Continued Medications: Aspirin (Aspirin Ec) 81 Mg Tab 81 MG PO QAM Buspirone Hcl (Buspar) 15 Mg Tab 15 MG PO TID Citalopram Hydrobromide (Celexa) 40 Mg Tab 40 MG PO QAM Fish Oil ([place]-3) 1 Ea Cap 1 CAP PO QAM, CAP Insulin Aspart (Novolog Flexpen) 100 Units/Ml Inj SC TIDM Multivitamin (Multivitamin) Tab 1 TAB PO QAM Discontinued Medications: Insulin Glargine (Lantus) 100 Unit/Ml Inj 55 UNITS SC QPM, VIAL Lisinopril (Prinivil) 10 Mg Tab 10 MG PO QAM Lisinopril (Zestril) 20 Mg Tab 20 MG PO DAILY, TAB Metoprolol Tartrate (Lopressor) (Lopressor) 50 Mg Tab 50 MG PO BID, TAB Discharge Exam Pt is doing well. She has been ambulating in the halls and no SOB or chest pain. She feels she would like to go home. Tolerating PO without issue. Pt denies fever, abd pain, n/v/c/d, LE pain or swelling. Pt tells me she checks her BS regularly, usually in the 200s-300s during the day , 170s-180s fasting. She does not check her fasting regularly. She does state that she and her eat out regularly. She had been trying to stick with a more protein-centric diet and limiting her carbs, but has recently moved away from that without meaning to. Pertinent positives and negatives reviewed in HPI--all others negative Physical Exam: General Appearance: WD/WN, no apparent distress Respiratory/Chest: normal breath sounds, no respiratory distress Cardiovascular: regular rate, rhythm, no edema Abdomen / GI: non tender, soft Extremities: no calf tenderness, no pedal edema Neurologic/Psychiatric: alert, normal mood/affect, oriented x 3 Skin: normal color, warm/dry Hospital Course Pt is a 52-year-old female with a history of uncontrolled diabetes mellitus type I, hypertension, severe CAD, current smoker, PAD, depression/anxiety, here with STEMI now status post stent placement to the circumflex artery. Also with acute hypoxemic and hypercapnic respiratory failure and severe hypotension and cardiogenic shock requiring vasopressors. STEMI/Cardiogenic shock/Acute diastolic and systolic CHF/severe CAD-s/p ASHLEY x 2 to the Cx artery 06/29. Is now weaned off Levophed, BPs remain low and remains in sinus tachycardia despite use of metoprolol. No further chest pain. Had worsened pulm edema and bilateral pleural effusions on chest x-ray 07/01 which improved with IV lasix, as well as IV Bumex. Troponins peaked at 28 and trended down. Continues to diurese with another dose of Bumex today ECHO 06/30 with: * Left ventricular systolic function is moderately reduced, 35-40%. * There appears to be an element of restrictive diastolic filling * There are regional wall motion abnormalities as specified. * The right ventricular systolic function is reduced as assessed by tricuspid annular plane systolic excursion (TAPSE) (TAPSE <1.6 cm). * There is mild to moderate mitral regurgitation. * There is mild to moderate tricuspid regurgitation. * Right ventricular systolic pressure is elevated at 30-40mmHg. -Plans for continued aspirin, Brillinta, high intensity statin on d/c - cardiology is eventually planning on an LAURENCE inhibitor when her blood pressures improve -Cardiology ordered metoprolol 12.5 mg by mouth twice a day to start, caution with hypotension but remains tachycardic Lasix -> PO and tolerating well Call from [facility] pharmacy prior to d/c, Brillinta is not covered by pt's insurance despite evidence suggesting improvement in all cause mortality s/p [place] Discussed with Dr. Kinney who feels that plavix is not the best care for pt and will provide with Brillinta samples for now. 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 Required BiPAP support x 24 hrs, now weaned off. ABG at time of cath pH 7.24/PaCO2 51/PA O2 37. 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 Discharge Instructions Please refer to the electronic Patient Visit Report (Discharge Instructions) for additional information. Follow-Up Dr. Kinney Tuesday as scheduled by their office Dr. Curtis in 2 weeks Additional Copies To Nela Curtis M.D.; Oj Kinney MD
== END 2017-07-03 16:55 | disposition home or self-care (01) | DRG 246 ==
LOC: EDBD 12:20 → C.EDB 12:21 → ENRESERV 13:03 → C.MSICU 16:46 → C.2E 07-02 13:07
PROVIDERS: ADMIT Family Medicine; ATTEND Family Medicine
PROC: B211YZZ Fluoroscopy of Multiple Coronary Arteries using Other Contrast (ICD-10-PCS; principal; 2017-06-29 12:39)
PROC: 027035Z Dilation of Coronary Artery, One Artery with Two Drug-eluting Intraluminal Devices, Percutaneous Approach (ICD-10-PCS; principal; 2017-06-29 12:39)
PROC: 4A023N8 Measurement of Cardiac Sampling and Pressure, Bilateral, Percutaneous Approach (ICD-10-PCS; principal; 2017-06-29 12:39)
PROC: 06W Lower Veins, Revision (ICD-10-PCS; 2017-06-30)
DX: I21.19 ST elevation (STEMI) myocardial infarction involving other coronary artery of inferior wall (principal); R57.0 Cardiogenic shock; I50.41 Acute combined systolic (congestive) and diastolic (congestive) heart failure; J96.01 Acute respiratory failure with hypoxia; J96.02 Acute respiratory failure with hypercapnia; J69.0 Pneumonitis due to inhalation of food and vomit; E78.5 Hyperlipidemia, unspecified; E10.65 Type 1 diabetes mellitus with hyperglycemia; I25.2 Old myocardial infarction; I11.0 Hypertensive heart disease with heart failure; I25.10 Atherosclerotic heart disease of native coronary artery without angina pectoris; F32.9 Major depressive disorder, single episode, unspecified; F41.9 Anxiety disorder, unspecified; D64.9 Anemia, unspecified; J44.9 Chronic obstructive pulmonary disease, unspecified; F17.200 Nicotine dependence, unspecified, uncomplicated; Z79.4 Long term (current) use of insulin; Z79.82 Long term (current) use of aspirin; Z79.899 Other long term (current) drug therapy; Z88.0 Allergy status to penicillin; Z95.5 Presence of coronary angioplasty implant and graft

== ENCOUNTER → 2017-07-07 | Outpatient (CLI) | payer OTHER ==
[~2017-07-07] MED LIST changes: +BRL90 PO; -CYAN10004 PO; -DORZ1SOL6 OPL; -INSDGI SC; +INSDGIPEN SC; -INSUINJ14 SC; -LISI10TA PO; +LPR25 PO; +LPT40 PO; +LSX40 PO; -METO50TA16 PO; +NVLGI/PEN SC; -PRED1SUS3 OPL
[2017-07-07 15:34] LABS: BLOOD UREA NITROGEN 18 mg/dl (7-18); BUN/CREATININE RATIO 19.4 (10-20); CALCIUM 8.1 mg/dl (8.5-10.1); CARBON DIOXIDE 29 mmol/L (21-32); CHLORIDE 100 mmol/L (98-107); CREATININE 0.95 mg/dl (0.60-1.20); GLUCOSE 164 mg/dl (70-99); POTASSIUM 3.5 mmol/L (3.5-5.1); SODIUM 135 mmol/L (136-145)
== END | disposition home or self-care (01) ==
LOC: C.LAB1850 14:38
PROVIDERS: ATTEND Internal Medicine Interventional Cardiology
DX: I50.21 Acute systolic (congestive) heart failure (principal)

== ENCOUNTER 2017-07-11 16:33 | Observation (INO) | payer BC, OTHER ==
[~2017-07-11] VITALS: Ht 160 cm; Wt 76.2 kg
[2017-07-11] MEDS ORDERED: FUROSEMIDE 40 MG/4 ML VIAL IV STA (16:51)
[2017-07-11] MEDS ORDERED: INSDGIPEN SC (17:02)
[2017-07-11 17:18] LABS: BASO % 0.3 %; BASO ABS # 0.03 K/uL (0-0.2); EOS % 2.2 %; EOS ABS # 0.19 K/uL (0-0.5); HEMATOCRIT 31.5 % (37-47); HEMOGLOBIN 10.3 g/dL (12.0-16.0); IG# 0.08 K/uL (0.00-0.02); LYMPH % 25.2 %; LYMPH ABS # 2.18 K/uL (1.2-3.4); MEAN CELL VOLUME 96.6 fL (80-100); MEAN CORPUSCULAR HEMOGLOBIN 31.6 pg (25-34); MEAN CORPUSCULAR HGB CONC 32.7 g/dl (32-36); MEAN PLATELET VOLUME 8.6 fL (7.4-10.4); MONO % 4.9 %; MONO ABS # 0.42 K/uL (0.11-0.59); NEUT % 66.5 %; NEUT ABS # 5.74 K/uL (1.4-6.5); NUCLEATED RED BLOOD CELL ABS 0.03 K/uL (0-0); PLATELET COUNT 498 K/uL (130-400); RED CELL DISTRIBUTION WIDTH CV 13.2 % (11.5-14.5); RED CELL DISTRIBUTION WIDTH SD 46.3 fL (36.4-46.3); WHITE BLOOD COUNT 8.64 K/uL (4.8-10.8)
[2017-07-11 17:22] LABS: PTT PATIENT 28.5 SECONDS (21.0-31.0)
[2017-07-11 17:31] LABS: CALCIUM 7.9 mg/dl (8.5-10.1); CREATININE 0.91 mg/dl (0.60-1.20); POTASSIUM 3.8 mmol/L (3.5-5.1)
--- NOTE | 2017-07-11 18:05 | DIAGNOSTIC IMAGING REPORT ---
TWO VIEW CHEST CLINICAL HISTORY: Dyspnea. FINDINGS: PA and lateral chest radiographs are compared to study dated 07/01/2017 and correlated with chest CT dated . The heart is top normal for projection. There is pulmonary vascular congestion. Perihilar airspace opacities are identified. There are trace pleural effusions. There is no pneumothorax. The skeletal structures are osteopenic. The bony thorax appears intact. IMPRESSION: 1. There is pulmonary vascular congestion. 2. There are perihilar airspace opacities. This could present a component of interstitial edema and/or pneumonia. Clinical correlation will be required. 3. Trace pleural effusions. Electronically signed by: Brian Patel M.D. 07/11/2017 6:03 PM Dictated Date/Time: 07/11/2017 6:02 PM
[2017-07-11] MEDS ORDERED: LEVAQUIN 750MG / 150ML D5W IV STA (18:19)
[2017-07-11] MEDS ORDERED: POLYETHYLENE (MIRALAX) 17 GM PACK PO PRN (18:45)
[2017-07-11] MEDS ORDERED: MAGNESIUM HYDROXIDE SUSP 30 ML UDC PO PRN (18:45)
[2017-07-11] MEDS ORDERED: ALUMINUM/MAGNESIUM/SIMETH (MAALOX MAX) 30 ML UDC PO PRN (18:45)
[2017-07-11] MEDS ORDERED: ONDANSETRON INJ 2 MG/ML 2 ML VIAL IV PRN (18:45)
[2017-07-11] MEDS ORDERED: ACETAMINOPHEN 325 MG TAB PO PRN (18:45)
[2017-07-11] MEDS ORDERED: IV FLUIDS COMPLETED PRN (19:00)
--- NOTE | 2017-07-11 19:09 | History and Physical ---
History & Physical Date of Service Jul 11, 2017. History & Physical obs #[id number]
--- NOTE | 2017-07-11 19:54 | HISTORY & PHYSICAL EXAMINATION ---
DATE OF ADMISSION: 07/11/2017 ADMISSION HISTORY AND PHYSICAL CHIEF COMPLAINT: Shortness of breath. HISTORY OF PRESENT ILLNESS: The patient is a very pleasant 52-year-old female, recently here with a STEMI. She notes that today she started feeling fluid in her chest and chest congestion like she was unable to get enough air. She noticed leading up to that a little bit of worsening edema. When she was short of breath, she felt worse lying down and better sitting up, and she notes that since she has been given IV Lasix in the ER, she is feeling better. She denies feeling sick in an infectious way. She does not have fevers, chills or sweats. She does not have any pleuritic chest pain. She also does not have any chest pain reminiscent of her heart attack. REVIEW OF SYSTEMS: Otherwise negative, except for as above. PAST MEDICAL HISTORY: Includes coronary artery disease status post ST-elevation PR, also uncontrolled type 1 diabetes, coronary artery disease, hypertension, hyperlipidemia, depression, anemia and question of COPD due to longstanding tobacco abuse. MEDICATIONS: Lipitor 80 mg daily, Lasix 40 mg daily, Lantus 60 units in the evening, metoprolol 12.5 p.o. b.i.d. Brilinta 90 mg b.i.d., aspirin 81 mg daily, BuSpar 15 mg 3 times a day, Celexa 40 mg daily, fish oil 1 gram daily, NovoLog at each meal, and multivitamin daily. ALLERGIES: PENICILLINS. FAMILY HISTORY: She is adopted. There is no known family history. SOCIAL HISTORY: She has been a daily smoker. No significant alcohol. She is and lives with her daughters and . 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 PAST SURGICAL HISTORY: Most relevant is a cardiac catheterization about 2 weeks ago showing severe coronary artery disease and successful PCI, having an inferior STEMI with an occluded distal circumflex and multivessel coronary artery disease. PHYSICAL EXAMINATION: VITAL SIGNS: Temperature 36.8, pulse 81, respiratory rate 16, blood pressure 104/69, 96% on room air. GENERAL: She is awake, alert, oriented x3, pleasant, in no acute distress. HEENT: Normocephalic, atraumatic. Mucous membranes are moist. CARDIOVASCULAR: Regular, slightly distant. No rubs, murmurs, or gallops. LUNGS: Diminished air entry at the bases with faint bibasilar rales, clearing at the mid lung without any other rales, rhonchi, or wheezes. Good effort. No accessory muscle use. ABDOMEN: Soft, nondistended, nontender, no masses or organomegaly. EXTREMITIES: Without cyanosis, clubbing or edema. No calf tenderness. She does have compression stockings on. SKIN: Shows no rashes, no pallor or icterus. NEUROLOGIC: Shows cranial nerves II-XII to be grossly intact. Gross motor and sensory are intact. MUSCULOSKELETAL: Yields no gross lesions. MENTAL STATUS: Shows good recent and remote recall. Normal mood and affect. Good judgment and insight. LABORATORY AND DIAGNOSTICS: Her EKG is without ischemic changes. CBC shows a white count of 8.64, hemoglobin 10.3, and platelets 498. Basic metabolic panel with sodium 139, potassium 3.8, chloride 104, CO2 30, BUN 18, creatinine 0.91, calcium 7.9, glucose 59. Troponin of 0.942, BNP of ____ PT 10.4, PTT 28.5. Her chest x-ray read by radiology as well as me shows perihilar airspace opacities noted, possibly interstitial edema or pneumonia. There is pulmonary vascular congestion, does seem asymmetric, right slightly worse than left. ASSESSMENT AND PLAN: 1. Shortness of breath. The differential on this appears to be congestive heart failure versus pneumonia versus both. However, her symptoms and her exam certainly fit far more with purely congestive heart failure picture than pneumonia. We will hold off on antibiotics at this point in time given that she has got no white count, no fever and no classic symptoms of pneumonia. For completeness, we will also check methicillin-resistant staphylococcus aureus nares, CRP and procalcitonin to help risk stratify and certainly will have a low threshold to initiate antibiotics if warranted, but does not appear to be warranted at this time. 2. Acute on subacute systolic congestive heart failure. Her systolic congestive heart failure appears to be subacute really stemming from her myocardial infarction just a few weeks ago, likely her body has yet to adapt to her nearly ____ pump, medication adjustments are still likely taking hold and also she probably is not yet well versed in a low sodium diet. She has been given 40 of Lasix in the ER with some significant improvement, will give her another 20 of Lasix IV now and then resume her 40 daily starting tomorrow. Follow her basic metabolic panel and educate her on a low sodium diet. 3. Uncontrolled type 1 diabetes. Continue insulins. Follow her fingersticks. 4. Coronary artery disease with recent ST-elevation myocardial infarction. Her troponin is elevated at 0.942 but this is almost certainly on the way down from her myocardial infarction. We will follow serial cardiac enzymes for safety sake, given her recent myocardial infarction, but given her lack of symptoms, reminiscent of her myocardial infarction and given her nonacute echocardiogram, I suspect this will not be a problem. 5. Hypocalcemia. Check a vitamin D as an outpatient in the near future. 6. Deep venous thrombosis prophylaxis, Lovenox. 7. Possible chronic obstructive pulmonary disease, outpatient pulmonary function tests. 8. Hyperlipidemia. Continue her home medications. 9. Hypertension. Continue home medications.
[2017-07-11 20:00] VITALS: BP 104/68; PULSE 82; TEMP 36.7; O2SAT 94; BMI 29.8
[2017-07-11] MEDS ORDERED: DEXTROSE 50% 50 ML SYR IV PRN (20:00)
[2017-07-11] MEDS ORDERED: GLUCAGON FOR INJ 1 MG VIAL SQ PRN (20:00)
[2017-07-11] MEDS ORDERED: GLUCOSE 40% GEL 15 GM TUBE PO PRN (20:00)
[2017-07-11] MEDS ORDERED: GLUCOSE 10 TABS/TUBE PO PRN (20:00)
[2017-07-11] MEDS ORDERED: FUROSEMIDE INJ 20 MG in SYRINGE 0 ML IV ONE (20:30)
[2017-07-11] MEDS: TICAGRELOR 90 MG TAB PO SCH (20:54)
[2017-07-11] MEDS: METOPROLOL TARTRATE 25 MG TAB PO SCH (20:54)
[2017-07-11] MEDS: BusPIRone 15 MG TAB PO SCH (20:54)
[2017-07-11] MEDS: INSULIN ASPART 100 UNITS/ML 3 ML PEN SC SCH (20:54)
[2017-07-11] MEDS ORDERED: INSULIN GLARGINE SOLOSTAR 100 UNITS/ML 3 ML PEN SC SCH (21:00)
[2017-07-11] MEDS ORDERED: ENOXAPARIN 40 MG/0.4 ML SYR SC SCH (21:00)
[2017-07-11] MEDS ORDERED: INFLUENZA VIRUS QUAD VACCINE 0.5 ML SYR IM. ONE (22:00)
[2017-07-11] MEDS ORDERED: PNEUMOCOCCAL POLYSACCHARIDES 25 MCG/0.5 ML VIAL/SYR IM. ONE (22:00)
[2017-07-11] MEDS ORDERED: PNEUMOCOCCAL ADMINISTRATION CHARGE ONE (22:00)
[2017-07-11] MEDS ORDERED: INFLUENZA ADMINISTRATION CHARGE ONE (22:00)
--- NOTE | 2017-07-11 23:07 | EMERGENCY ROOM VISIT NOTE ---
History Report prepared by Ashia: Daphnie Lorenzana Under the Supervision of: Dr. Zack Patel M.D. First contact with patient: 16:41 Chief Complaint: SHORTNESS OF BREATH Stated Complaint: SOB,FLUID BUILD UP IN CHEST History of Present Illness The patient is a 52 year old female who presents to the Emergency Room with complaints of worsening shortness of breath beginning this morning. The patient notes congestion and increased swelling to her ankles beginning this morning. She reports her breathing has been more labored today. She denies any chest discomfort, cough, fever, abdominal pain, or pain to legs. The patient was admitted to the hospital on June 29 for a STEMI and acute CHF. Following her STEMI, she had two stents put in place. The patient takes Plavix, Lipitor, and 40 mg of Lasix once a day. She does state that she has had a bit of a cold with congestion but no significant cough. Source of History: patient Onset: this morning Position: other (genealized) Quality: other (shortness of breath) Timing: worsening Associated Symptoms: + SOB, No fevers, No cough, No chest pain, No abdominal pain Review of Systems See HPI for pertinent positives & negatives. A total of 10 systems reviewed and were otherwise negative. Past Medical & Surgical Medical Problems: (1) Anemia (2) Cellulitis and abscess of toe of right foot (3) Diabetes (4) Heart disease (5) HLD (hyperlipidemia) (6) HTN (hypertension) (7) Shortness of breath (8) ST elevation (STEMI) myocardial infarction involving left circumflex coronary artery (9) STEMI (ST elevation myocardial infarction) Surgical Problems: (1) S/P right coronary artery (RCA) stent placement Social History Problems: (1) ETOH abuse (2) Smoker Family History Patient reports no known family medical history. Social History Smoking Status: Never Smoker Alcohol Use: none Drug Use: none Marital Status: Occupation Status: employed Current/Historical Medications Scheduled Aspirin (Aspirin Ec), 81 MG PO QAM Atorvastatin (Atorvastatin Calcium), 80 MG PO QAM Buspirone Hcl (Buspar), 15 MG PO TID Citalopram Hydrobromide (Celexa), 40 MG PO QAM Fish Oil ([place]-3), 1 CAP PO QAM Furosemide (Furosemide), 40 MG PO QAM Insulin Aspart (Novolog Flexpen), SC TIDM Insulin Glargine (Lantus Solostar), 55 SC QPM Metoprolol Tartrate (Lopressor), 12.5 MG PO BID Multivitamin (Multivitamin), 1 TAB PO QAM Ticagrelor (Brilinta), 90 MG PO BID Allergies Coded Allergies: Penicillins (Verified Allergy, Intermediate, ITCHY RASH ALL OVER BODY, ) Physical Exam Vital Signs Date Time Temp Pulse Resp B/P (MAP) Pulse Ox O2 Delivery O2 Flow Rate FiO2 07/11/17 17:41 80 18 106/64 94 Room Air 07/11/17 17:07 79 16 89/59 95 Room Air 07/11/17 16:49 96 Room Air 07/11/17 16:37 36.8 81 16 104/69 96 Room Air Physical Exam Constitutional: Vital signs reviewed. Eyes: Pupils are equal round reactive to light. Conjunctiva are noninjected. ENT: Pharynx is clear without erythema or exudate. Mucous membranes are moist. Neck supple without meningeal signs. Respiratory: Clear to auscultation bilaterally. Breath sounds are equal bilaterally. Cardiovascular: Regular rate and rhythm. No rubs or gallops. GI: Soft, nondistended and nontender. Bowel sounds are present. Musculoskeletal: No peripheral edema. No lower extremity tenderness. Integumentary: No cyanosis. Neurological: The patient is awake and alert. No focal deficits. Psychiatric: Normal affect. Medical Decision & Procedures ER Provider Diagnostic Interpretation: Radiology results as stated below per my review and the radiologist's interpretation: TWO VIEW CHEST FINDINGS: PA and lateral chest radiographs are compared to study dated 07/01/2017 and correlated with chest CT dated . The heart is top normal for projection. There is pulmonary vascular congestion. Perihilar airspace opacities are identified. There are trace pleural effusions. There is no pneumothorax. The skeletal structures are osteopenic. The bony thorax appears intact. IMPRESSION: 1. There is pulmonary vascular congestion. 2. There are perihilar airspace opacities. This could present a component of interstitial edema and/or pneumonia. Clinical correlation will be required. 3. Trace pleural effusions. Electronically signed by: Brian Patel M.D. Laboratory Results 07/11/17 17:00 Red Blood Count 3.26, Mean Corpuscular Volume 96.6, Mean Corpuscular Hemoglobin 31.6, Mean Corpuscular Hemoglobin Concent 32.7, Mean Platelet Volume 8.6, Neutrophils (%) (Auto) 66.5, Lymphocytes (%) (Auto) 25.2, Monocytes (%) (Auto) 4.9, Eosinophils (%) (Auto) 2.2, Basophils (%) (Auto) 0.3, Neutrophils # (Auto) 5.74, Lymphocytes # (Auto) 2.18, Monocytes # (Auto) 0.42, Eosinophils # (Auto) 0.19, Basophils # (Auto) 0.03 07/11/17 17:00 Test 07/11/17 17:00 White Blood Count 8.64 K/uL (4.8-10.8) Red Blood Count 3.26 M/uL (4.2-5.4) Hemoglobin 10.3 g/dL (12.0-16.0) Hematocrit 31.5 % (37-47) Mean Corpuscular Volume 96.6 fL (80-100) Mean Corpuscular Hemoglobin 31.6 pg (25-34) Mean Corpuscular Hemoglobin Concent 32.7 g/dl (32-36) Platelet Count 498 K/uL (130-400) Mean Platelet Volume 8.6 fL (7.4-10.4) Neutrophils (%) (Auto) 66.5 % Lymphocytes (%) (Auto) 25.2 % Monocytes (%) (Auto) 4.9 % Eosinophils (%) (Auto) 2.2 % Basophils (%) (Auto) 0.3 % Neutrophils # (Auto) 5.74 K/uL (1.4-6.5) Lymphocytes # (Auto) 2.18 K/uL (1.2-3.4) Monocytes # (Auto) 0.42 K/uL (0.11-0.59) Eosinophils # (Auto) 0.19 K/uL (0-0.5) Basophils # (Auto) 0.03 K/uL (0-0.2) RDW Standard Deviation 46.3 fL (36.4-46.3) RDW Coefficient of Variation 13.2 % (11.5-14.5) Immature Granulocyte % (Auto) 0.9 % Immature Granulocyte # (Auto) 0.08 K/uL (0.00-0.02) Nucleated RBC Absolute Count (auto) 0.03 K/uL (0-0) Nucleated Red Blood Cells % 0.4 % Prothrombin Time 10.4 SECONDS (9.0-12.0) Prothromb Time International Ratio 1.0 (0.9-1.1) Activated Partial Thromboplast Time 28.5 SECONDS (21.0-31.0) Partial Thromboplastin Ratio 1.1 Anion Gap 6.0 mmol/L (3-11) Est Creatinine Clear Calc Drug Dose 70.6 ml/min Estimated GFR () 83.5 Estimated GFR (Non- 72.0 BUN/Creatinine Ratio 20.2 (10-20) Calcium Level 7.9 mg/dl (8.5-10.1) Troponin I 0.942 ng/ml (0-0.045) C-Reactive Protein 1.20 mg/dl (0-0.29) Pro-B-Type Natriuretic Peptide 3650 pg/ml (0-900) Procalcitonin < 0.05 ng/ml (0-0.5) Laboratory results as reviewed by me. Medications Administered Medications (Trade) Dose Ordered Sig/Mehul Route Start Time Stop Time Status Last Admin Dose Admin Furosemide (Lasix Inj) 40 mg NOW STAT IV 07/11/17 16:51 07/11/17 16:54 DC 07/11/17 17:07 40 MG ECG Indication: SOB/dyspnea Rate (beats per minute): 82 Rhythm: normal sinus Findings: no ectopy, other (no acute ST elevation) ED Course 1645: The patient was evaluated in room A3. A complete history and physical exam was performed. 1650: Ordered Lasix Inj 40 mg IV. 1817: I updated the patient on her test results. She is feeling better. 1818: Ordered Levofloxacin 750 mg IV. 1824: I spoke with Dr. Foss of [facility]. We discussed the patient and her results. The patient will be further evaluated by him. Medical Decision This is a 52-year-old female who presents with shortness of breath. Differential diagnosis includes CHF exacerbation, pulmonary edema, pleural effusion, pneumonia, bronchitis. I did perform a limited focused review of portions of the patient's old chart on the electronic medical record. The patient was admitted June 29 after a STEMI with acute CHF and had two stents put in place. I did evaluate the patient as noted above. Patient is presenting with shortness of breath. She has a history of CHF and recently was admitted for STEMI. She also complains of some URI symptoms. IV access was established. The patient was placed on a continuous feather baler. I did order and personally review the patient's 12-lead EKG and chest x-ray as described above. Her chest x-rays concerning for vascular congestion as well as infiltrates concerning for pneumonia. I did order blood cultures. I did order and review the patient's blood work as noted in the electronic medical record. Her BNP is elevated. Her troponin is also slightly elevated. This is, however, significantly decreased from her last troponin. I did treat the patient with Lasix IV. She was also given Levaquin IV. I did reassess the patient. She is feeling better. I did recommend hospitalization for further care and evaluation. I did discuss case with the hospitalist and pillowcase cleaner. Medication Reconcilliation Current Medication List: was personally reviewed by me Blood Pressure Screening Patient's blood pressure: Normal blood pressure Consults Time Called: 1818 Consulting Physician: Dr. Yap[facility] Returned Call: [address] Foss of [facility]. We discussed the patient and her results. The patient will be further evaluated by him. Impression Primary Impression: Acute exacerbation of CHF (congestive heart failure) Additional Impression: Right upper lobe pneumonia Scribe Attestation The scribe's documentation has been prepared under my direct and personally reviewed by me in its entirety. I confirm that the note above accurately reflects all work, treatment, procedures, and medical decision making performed by me. Departure Information Dispostion Being Evaluated By Hospitalist Referrals No Doctor, Assigned (PCP) Patient Instructions [facility] Problem Qualifiers Primary Impression: Acute exacerbation of CHF (congestive heart failure) Congestive heart failure type: unspecified congestive heart failure type Qualified Codes: I50.9 - Heart failure, unspecified Additional Impression: Right upper lobe pneumonia Pneumonia type: due to unspecified organism Qualified Codes: J18.1 - Lobar pneumonia, unspecified organism
[2017-07-11 23:10] VITALS: BP 97/61; PULSE 80; TEMP 36.7; O2SAT 94
[2017-07-12 03:20] VITALS: BP 93/61; PULSE 79; TEMP 36.7; O2SAT 97
[2017-07-12] MEDS: TICAGRELOR 90 MG TAB PO SCH (07:49)
[2017-07-12] MEDS: BusPIRone 15 MG TAB PO SCH ×2 (07:49→13:33)
[2017-07-12 07:53] VITALS: BP 91/59; PULSE 80; TEMP 36.7; O2SAT 95
[2017-07-12] MEDS: INSULIN ASPART 100 UNITS/ML 3 ML PEN SC SCH ×2 (07:53→11:57)
[2017-07-12] MEDS ORDERED: MULTIVITAMIN TAB PO SCH (09:00)
[2017-07-12] MEDS ORDERED: ATORVASTATIN 40 MG TAB PO SCH (09:00)
[2017-07-12] MEDS ORDERED: CITALOPRAM 40 MG TAB PO SCH (09:00)
[2017-07-12] MEDS ORDERED: OMEGA-3 (PURIFIED FISH OIL) 1 GM CAP PO SCH (09:00)
[2017-07-12] MEDS: METOPROLOL TARTRATE 25 MG TAB PO SCH (09:00)
[2017-07-12] MEDS ORDERED: ASPIRIN 81 MG ECTAB PO SCH (09:00)
[2017-07-12] MEDS ORDERED: FUROSEMIDE 40 MG TAB PO SCH (09:00)
[2017-07-12 09:04] LABS: CALCIUM 7.9 mg/dl (8.5-10.1); CREATININE 0.8 mg/dl (0.60-1.20); POTASSIUM 3.3 mmol/L (3.5-5.1)
[2017-07-12 09:05] LABS: HEMATOCRIT 32.2 % (37-47); HEMOGLOBIN 10.5 g/dL (12.0-16.0); MEAN CELL VOLUME 96.1 fL (80-100); MEAN CORPUSCULAR HEMOGLOBIN 31.3 pg (25-34); MEAN CORPUSCULAR HGB CONC 32.6 g/dl (32-36); MEAN PLATELET VOLUME 8.7 fL (7.4-10.4); PLATELET COUNT 540 K/uL (130-400); RED CELL DISTRIBUTION WIDTH CV 13.4 % (11.5-14.5); WHITE BLOOD COUNT 8.69 K/uL (4.8-10.8)
[2017-07-12 10:41] VITALS: BP 99/63; PULSE 76; TEMP 36.6; O2SAT 97
[2017-07-12 11:30] VITALS: Ht 160 cm; Wt 76.2 kg
[2017-07-12 13:46] VITALS: BP 99/63; PULSE 76; TEMP 36.6; O2SAT 97
--- NOTE | 2017-07-12 13:51 | Discharge Instructions ---
Discharge Instructions Date of Service Jul 12, 2017. Admission Reason for Admission: Shortness Of Breath Discharge Discharge Diagnosis / Problem: Acute on chronic systolic congestive heart failure Discharge Goals Goal(s): Decrease discomfort, Improve function, Diagnostic testing, Therapeutic intervention Activity Recommendations Activity Limitations: resume your previous activity (as tolerated, per cardiac rehab) . Instructions / Follow-Up Instructions / Follow-Up You were admitted to the hospital after presenting with shortness of breath. You were found to have a mild exacerbation of your congestive heart failure which was treated with IV Lasix. This resolved your shortness of breath. Your cardiac enzymes are still mildly elevated, but this is due to your recent heart attack, and they are slowly returning to normal. Medications: *No changes have been made to your medications. Follow up: *You have been scheduled to follow up with your primary care provider. Please also continue to follow up with cardiology as scheduled. Please seek medical attention if you experience fevers, chills, sweats, dizziness/lightheadedness, loss of consciousness, chest pain, shortness of breath, nausea, vomiting, numbness or tingling. Call your Primary Care doctor if any of the following symptoms or problems start or get worse: * Shortness of breath or difficulty breathing * Wake up at night short of breath * Chest pain * Cough * Swelling of your hands, feet, or legs * More fatigued or tired with your normal activity * Palpitations - sudden fast heart beats WEIGHT * Weigh yourself every morning after using the bathroom. * Use the same scale. * Wear the same amount of clothing. * Write your weight down on a chart. * Call your Primary Care doctor if you gain more than 2-3 pounds in 1-2 days. MEDICATIONS * Use this discharge instruction sheet for medication instructions. * Take your medications at the time your doctor ordered. * Do not skip a dose of your medicines. * If you miss a dose of medicine, take it as soon as possible, but DO NOT DOUBLE A DOSE. * Read your medicine information when you get home. * Know all of the side effects of your medicine. If in doubt, ask your pharmacist * Call your Primary Care doctor's office if you have any side effects. * Be sure all of your doctors know what medicine and herbs you take (including cold, flu, and herbal medicine). Take the following with you to your follow-up doctor appointments: * Weight Chart * Medication List * List of questions Do not drink excessive alcohol, beer or wine. Current Hospital Diet Patient's current hospital diet: AHA Diet (Heart Healthy) Discharge Diet Recommended Diet: AHA Diet (Heart Healthy), Low Sodium Diet (2gm Na) Pending Studies Studies pending at discharge: no Laboratory Results Hemoglobin A1c Test 06/30/17 05:10 Range/Units Estimated Average Glucose 289 mg/dl Hemoglobin A1c 11.7 H 4.5-5.6 % Lipid Panel Test 06/30/17 05:10 Range/Units Triglycerides Level 252 H 0-150 mg/dl Cholesterol Level 158 0-200 mg/dl HDL Cholesterol 29 mg/dl Cholesterol/HDL Ratio 5.4 LDL Cholesterol, Calculated 79 mg/dl Medical Emergencies . Who to Call and When: Call 911 or go to the Emergency Room if: * If at any time you feel your situation is an emergency * You have tightness or pain in your chest that does not go away with rest or Nitroglycerin * You are very short of breath even with rest . Non-Emergent Contact Non-Emergency issues call your: Primary Care Provider, Chair Call Non-Emergent contact if: you have a fever, you have any medication questions . Past History Medical & Surgical History: (1) Acute exacerbation of CHF (congestive heart failure) (2) Shortness of breath . "Provider Documentation" section prepared by Alize Ocasio. . VTE Core Measure Inpt VTE Proph given/why not?: Enoxaparin (Lovenox)SQ
--- NOTE | 2017-07-12 14:14 | Discharge Summary ---
Discharge Summary Date of Service Jul 12, 2017. Discharge Summary Admission Date: Jul 11, 2017 at 18:35 Discharge Date: Jul 12, 2017 Discharge Disposition: Home Principal Diagnosis: Acute on chronic systolic congestive heart failure Problems/Secondary Diagnoses: Recent STEMI, CAD, HTN, HLD, DM I, depression/anxiety Immunizations: Have You Had Influenza Vaccine: Yes Influenza Vaccine Date: May 11, 2005 History of Tetanus Vaccine?: Unknown History of Pneumococcal: Yes Pneumococcal Date: May 11, 2001 History of Hepatitis B Vaccine: No Procedures: TWO VIEW CHEST CLINICAL HISTORY: Dyspnea. FINDINGS: PA and lateral chest radiographs are compared to study dated 07/01/2017 and correlated with chest CT dated . The heart is top normal for projection. There is pulmonary vascular congestion. Perihilar airspace opacities are identified. There are trace pleural effusions. There is no pneumothorax. The skeletal structures are osteopenic. The bony thorax appears intact. IMPRESSION: 1. There is pulmonary vascular congestion. 2. There are perihilar airspace opacities. This could present a component of interstitial edema and/or pneumonia. Clinical correlation will be required. 3. Trace pleural effusions. Medication Reconciliation Continued Medications: Aspirin (Aspirin Ec) 81 Mg Tab 81 MG PO QAM Atorvastatin (Atorvastatin Calcium) 40 Mg Tab 80 MG PO QAM for 30 Days, #60 TAB Buspirone Hcl (Buspar) 15 Mg Tab 15 MG PO TID Citalopram Hydrobromide (Celexa) 40 Mg Tab 40 MG PO QAM Fish Oil ([place]-3) 1 Ea Cap 1 CAP PO QAM, CAP Furosemide (Furosemide) 40 Mg Tab 40 MG PO QAM for 30 Days, #30 TAB Insulin Aspart (Novolog Flexpen) 100 Units/Ml Inj SC TIDM PER SLIDING SCALE Insulin Glargine (Lantus Solostar) 100 Unit/Ml Inj 55 SC QPM, PEN Metoprolol Tartrate (Lopressor) 25 Mg Tab 12.5 MG PO BID for 30 Days, #30 TAB Multivitamin (Multivitamin) Tab 1 TAB PO QAM Ticagrelor (Brilinta) 90 Mg Tab 90 MG PO BID for 30 Days, #60 TAB Discharge Exam The patient reports feeling well. She denies any shortness of breath or dyspnea on exertion today. She was able to get up and wash herself up this morning without any issues, something she states she could not do prior to arrival. She denies any complaints. The patient denies fevers, chills, sweats, chest pain, palpitations, claudication, cough, wheezing, shortness of breath, nausea, vomiting, abdominal pain, dysuria, hematuria, urinary retention, paralysis, weakness, numbness and tingling. Constitutional: No fever, No chills, No sweats Eyes: No worsening of vision, No eye pain, No diplopia ENT: No hearing loss, No nasal symptoms, No trouble swallowing Respiratory: No cough, No wheezing, No shortness of breath Cardiovascular: No chest pain, No claudication, No palpitations Abdomen: No pain, No nausea, No vomiting Musculoskeletal: No joint pain, No muscle pain, No swelling Genitourinary - Female: No dysuria, No urinary retention, No hematuria Neurologic: No paralysis, No weakness, No numbness/tingling Integumentary: No rash, No itch, No color change General appearance: Well-developed, well-nourished, no apparent distress Head: Normocephalic, atraumatic Eyes: Normal inspection, PERRL, EOMI ENT: Normal ENT inspection, hearing grossly normal, pharynx normal Neck: Supple, no JVD, trachea midline Respiratory/Chest: +Decreased breath sounds in bases. Lungs clear to auscultation, no respiratory distress Cardiovascular: Regular rate & rhythm, no gallop, no murmur Abdomen/GI: Normal bowel sounds, non-tender, soft Extremities/Musculoskeletal: Normal inspection, no calf tenderness, no pedal edema Neurological/Psych: Alert, normal mood/affect, oriented x 3 Skin: Normal color, warm/dry, no rash Hospital Course 52 y/o female with a history of a recent inferior STEMI s/p 2 ASHELY on 06/29/17, CAD, HTN, HLD, chronic systolic CHF, DM I and anxiety/depression who presents to the ED with shortness of breath and dyspnea on exertion. Acute on chronic systolic CHF--improved/resolved -Admit to tele. No acute events overnight. Pt in sinus rhythm with HR 70s-80s -CXR on admission shows pulmonary vascular congestion, trace effusions -Given total 60 mg Lasix IV on admission with good diuresis. Now completely asymptomatic -Continue home dose of Lasix 40 mg PO qd -Likely due to recent STEMI with recent medicine changes, new to low sodium diet -Pt received CHF education while inpt CAD, recent STEMI, HTN, HLD--stable -Troponin mildly elevated but much lower compared to STEMI, still trending down -Continue ASA, Brilinta 90 mg PO BID, Lipitor 80 mg PO qd, and Lopressor 12.5 mg PO BID DM I--HgbA1c 11.7 on 06/30/17 -Lantus 55 units SC hs -Insulin sliding scale -Check BSGs q ac and qhs Anxiety/depression -Continue BuSpar 15 mg PO TID and Celexa 40 mg PO qd DVT prophylaxis -Enoxaparin 40 mg SC q24h Dispo -D/C to home, f/u with PCP and cardiology Supervising Note Dr. Zavaleta I performed a history and physical examination on the patient. I reviewed above note and agree with it. I discussed plan with APC and patient. During my face to face encounter with the patient, I answered all of the patient's questions. My exam did not differ from exam that was noted above. Total Time Spent: Greater than 30 minutes This includes examination of the patient, discharge planning, medication reconciliation, and communication with other providers. Discharge Instructions Please refer to the electronic Patient Visit Report (Discharge Instructions) for additional information. Additional Copies To Ace Hayes M.D.
== END 2017-07-12 14:28 | disposition home or self-care (01) ==
LOC: C.EDB 16:34 → C.2T 18:35 → ENRESERV 19:10
PROVIDERS: ADMIT Family Medicine; ATTEND Family Medicine
DX: I50.23 Acute on chronic systolic (congestive) heart failure (principal); J18.9 Pneumonia, unspecified organism; I11.0 Hypertensive heart disease with heart failure; I25.10 Atherosclerotic heart disease of native coronary artery without angina pectoris; I25.2 Old myocardial infarction; E78.5 Hyperlipidemia, unspecified; E10.9 Type 1 diabetes mellitus without complications; D64.9 Anemia, unspecified; F10.10 Alcohol abuse, uncomplicated; F17.200 Nicotine dependence, unspecified, uncomplicated; Z79.82 Long term (current) use of aspirin; Z79.4 Long term (current) use of insulin; Z79.899 Other long term (current) drug therapy; Z95.5 Presence of coronary angioplasty implant and graft; F32.9 Major depressive disorder, single episode, unspecified; F41.9 Anxiety disorder, unspecified

== ENCOUNTER 2018-02-19 15:16 | Emergency (ER) | payer BC ==
[~2018-02-19] VITALS: Ht 157.5 cm; Wt 78.4 kg
[~2018-02-19 15:16] MED LIST changes: +NVLGIPEN SQ
[2018-02-19 15:25] VITALS: BP 91/61; PULSE 91; TEMP 36.8; O2SAT 96; Ht 157.5 cm; Wt 78.4 kg
--- NOTE | 2018-02-19 15:58 | EMERGENCY ROOM VISIT NOTE ---
History First contact with patient: 15:30 Chief Complaint: MEDICATION REFILL REQUEST Stated Complaint: NEEDS REFILL ON INSULIN History of Present Illness The patient is a 53 year old female who presents to the Emergency Room via private vehicle complete by male with complaints of "needs refill on insulin". The patient presents to us today noting that she has an insulin pump, and is currently on NovoLog. She administers the insulin into the pump of which then calculates and dispenses this into her body. She notes a rate of 4.5 units hourly which has been increased from baseline. It was initially 50 units per day and is now 54 units per day. She states that when she went to administer this to the pump today there was inferior, and she accidentally was not able to successfully load about 200 units into the device. She states that because of this area/misfortune she no longer has any more insulin. She states that she went to [facility] in attempt to refill this and it was noted that it would not be covered by insurance because it is too soon. She notes that she tried to explain that there is an error/mishap and that she was not able to administer the insulin. She notes that she was due for her dose of this a few hours ago but denies any complications at this time. She came here in an attempt to have this filled. She declines being provided insulin here in the emergency department. Review of Systems A complete 6-point Review of Systems was discussed with the patient, with pertinent positives and negatives listed in the History of Present Illness. All remaining Review of Systems questions can be considered negative unless otherwise specified. Past Medical/Surgical History Medical Problems: (1) Anemia (2) Cellulitis and abscess of toe of right foot (3) Diabetes (4) Diabetic peripheral neuropathy associated with type 2 diabetes mellitus (5) Foot deformity (6) Heart disease (7) History of diabetic ulcer of foot (8) HLD (hyperlipidemia) (9) HTN (hypertension) (10) Loss of sensation (11) Shortness of breath (12) ST elevation (STEMI) myocardial infarction involving left circumflex coronary artery (13) STEMI (ST elevation myocardial infarction) Surgical Problems: (1) S/P right coronary artery (RCA) stent placement Social History Problems: (1) ETOH abuse (2) Smoker Family History Patient reports no known family medical history. Social History Smoking Status: Current Every Day Smoker Alcohol Use: none Drug Use: none Marital Status: Occupation Status: employed Current/Historical Medications Scheduled Aspirin (Aspirin Ec), 81 MG PO QAM Atorvastatin (Lipitor), 80 MG PO QAM Buspirone Hcl (Buspar), 15 MG PO TID Citalopram Hydrobromide (Celexa), 40 MG PO QAM Fish Oil ([place]-3), 1 CAP PO QAM Furosemide (Furosemide), 40 MG PO QAM Insulin Aspart (novoLOG INSULIN PUMP ), 1 EA N/A UD Metoprolol Tartrate (Lopressor), 12.5 MG PO BID Multivitamin (Multivitamin), 1 TAB PO QAM Ticagrelor (Brilinta), 90 MG PO BID Physical Exam Vital Signs Date Time Temp Pulse Resp B/P (MAP) Pulse Ox O2 Delivery O2 Flow Rate FiO2 02/19/18 15:25 36.8 91 18 91/61 96 Room Air Physical Exam VITAL SIGNS - Vital signs and nursing notes were reviewed. Stable. Blood pressure is slightly low, however she is conversing well without difficulty. I do not suspect this to be of emergent process. GENERAL -53-year-old female appearing her stated age who is in no acute distress. Communicates well with provider and answers questions appropriately. SKIN - Without rashes. HEAD - NC/AT. EYES - Sclera anicteric. EARS - No deformities of external structures noted on gross examination bilaterally. NOSE - Midline and without cyanosis. No epistaxis or purulent drainage noted. MOUTH/OROPHARYNX - Without perioral cyanosis. PSYCH - A&O, and cooperates fully with examiner. Pt is very pleasant and interacts well with examiner. Medical Decision & Procedures Medical Decision Patient was seen and evaluated as above in room D1. Review was performed of nursing notes and vital signs. Thorough history and physical examination were performed. She presents to us today with medication refill request of insulin. She notes that it is unfortunate she was unable to be able to refill her prescription of insulin at the pharmacy. I did speak with the pharmacy regarding this matter, and was informed that if I write a new prescription with the adjusted increase in her dose it should suffice. They informed me that unfortunately the insurance was declining refilling her medication as she should still have enough and the patient would have had to pay out of pocket $ 346. The patient states that she had a dosage increase on her insulin by the community health educator a few days ago. She states that because of that and having the accident with the insulin earlier today she does not have enough. I informed her that I will write her a prescription for the insulin and she may have this filled today. I wrote a prescription exactly as it was on her previous prescription other than a slight increase/dose adjustment as she noted was performed a few days ago. This is now an accurate representation of her current insulin dosage. She notes that she has been on this for a few days without problem. I will note that her vital signs here reveal no fever, her blood pressure slightly low. Upon my examination she has no complaints or evidence of emergent process. I will also note that in review of the patient's previous and most recent vitals prior to today's visit these are similar. She had values in the low 100s systolic and 60s systolic. Prior to that her values were 99/63. I believe that this is likely similar to her chronic and baseline values. Furthermore, she is also on medication which will lower the blood pressure. She has no findings on my examination or clinically that would suggest emergent hypotension. The patient was educated upon management, educated upon todays findings/results, educated upon symptoms in which to return , had questions answered prior to discharge, and was discharged home in good condition. Case was discussed with the attending physician. In the evaluation and treatment of this patient the following differential diagnoses were entertained: Encounter for medication refill, among others Impression Primary Impression: Encounter for medication refill Departure Information Dispostion Home / Self-Care Condition GOOD Referrals Ace Hayes M.D. (PCP) Patient Instructions My [facility] [address] Additional Instructions You were seen in the emergency department for refill of your insulin. Please your healthcare social worker to inform them upon what had occurred. Please return with any new/concerning symptoms.
[2018-02-19] MEDS ORDERED: INSPMPNVLG (16:00)
== END 2018-02-19 15:55 | disposition home or self-care (01) ==
LOC: C.EDB 15:18 → C.EDD 15:55
DX: Z76.0 Encounter for issue of repeat prescription (principal); Z79.4 Long term (current) use of insulin; Z96.41 Presence of insulin pump (external) (internal); E11.40 Type 2 diabetes mellitus with diabetic neuropathy, unspecified; E78.5 Hyperlipidemia, unspecified; I10 Essential (primary) hypertension; I25.2 Old myocardial infarction; Z95.5 Presence of coronary angioplasty implant and graft; F17.210 Nicotine dependence, cigarettes, uncomplicated; Z79.82 Long term (current) use of aspirin; Z79.899 Other long term (current) drug therapy

== ENCOUNTER → 2018-03-06 | Outpatient (CLI) | payer BC ==
[~2018-03-06] MED LIST changes: -INSDGIPEN SC; +INSPMPNVLG; -NVLGI/PEN SC; -NVLGIPEN SQ
[2018-03-06 17:47] LABS: ALBUMIN 3.2 gm/dl (3.4-5.0); ALKALINE PHOSPHATASE 243 U/L (45-117); ALT/SGPT 28 U/L (12-78); AST/SGOT 20 U/L (15-37); BLOOD UREA NITROGEN 18 mg/dl (7-18); CALCIUM 8.9 mg/dl (8.5-10.1); CARBON DIOXIDE 26 mmol/L (21-32); CREATININE 0.88 mg/dl (0.60-1.20); GLUCOSE 186 mg/dl (70-99); SODIUM 137 mmol/L (136-145); TOTAL PROTEIN 7.9 gm/dl (6.4-8.2)
[2018-03-06 17:50] LABS: CREATININE RANDOM URINE 21.7 mg/dl
[2018-03-07 05:52] LABS: HEMOGLOBIN A1C 11.5 % (4.5-5.6)
== END | disposition home or self-care (01) ==
LOC: C.LABPVFM 14:11
PROVIDERS: ATTEND Physician Assistant Medical
DX: E10.9 Type 1 diabetes mellitus without complications (principal); E55.9 Vitamin D deficiency, unspecified; I25.5 Ischemic cardiomyopathy

== ENCOUNTER 2022-09-30 22:24 | Inpatient (IN) ==
[2022-09-30 23:23] LABS: Appearance Urine Turbid (Clear); Bacteria Urine Automated 4+ (Negative); Bilirubin Urine Negative (Negative); Blood Urine 2+ (Negative); Color Urine Yellow; Epithelial Cell Urine Auto >30 /lpf (0-5); Glucose Urine UA 3+ (Negative); Ketones Urine Trace (Negative); Leukocyte Esterase Urine 3+ (Negative); Nitrite Urine Negative (Negative); Protein Urine 1+ (Negative); RBC Urine Automated 0-4 /hpf (0-4); Urobilinogen Urine Negative (Negative); WBC Urine Automated >30 /hpf (0-5)
[2022-09-30 23:29] LABS: Basophils # (auto) 0.02 K/uL (0-0.2); Basophils % (auto) 0.2 %; Eosinophils # (auto) 0.05 K/uL (0-0.50); Eosinophils % (auto) 0.5 %; Hematocrit (blood only) 34.8 % (37.0-47.0); Hemoglobin 12.1 g/dl (12.0-16.0); Immature Granulocytes # (auto) 0.03 K/uL (0.01-0.20); Immature Granulocytes % (auto) 0.3 %; Lymphocytes # (auto) 2.07 K/uL (1.2-3.4); Lymphocytes % (auto) 19.6 %; Mean Corpuscular Hemoglobin 32.2 pg (25.0-34.0); Mean Corpuscular Hgb Conc 34.8 g/dL (32.0-36.0); Mean Corpuscular Volume 92.6 fL (80.0-100.0); Mean Platelet Volume 10.3 fL (9.4-12.4); Monocytes # (auto) 0.57 K/uL (0.11-0.59); Monocytes % (auto) 5.4 %; Neutrophils # (auto) 7.83 K/uL (1.40-6.50); Platelet Count 385 K/uL (130-400); RDW Coefficient of Variation 12.7 % (11.5-14.5); RDW Standard Deviation 42.8 fL (36.4-46.3); Red Blood Count 3.76 M/uL (4.20-5.40); White Blood Count 10.57 K/ul (4.8-10.8)
[2022-09-30 23:36] LABS: Albumin Globulin Ratio 1.2 (0.9-2); Albumin Level 4.4 gm/dl (3.4-5.0); BUN Creatinine Ratio 20.3 (10-20); Bilirubin,Total 0.4 mg/dl (0.2-1.0); Calcium 9.3 mg/dl (8.6-10.3); Est GFR (African American) 50.9 ml/min; Globulin 3.7 gm/dl (2.5-4.0); Potassium 3.5 mmol/L (3.5-5.1); Total Protein 8.1 gm/dl (6.0-8.3)
[2022-09-30 23:43] LABS: Amphetamines+Metham, Urine Neg (Neg); Barbiturates, Urine Neg (Neg); Benzodiazepine, Urine Neg (Neg); Cocaine, Urine Neg (Neg); MDMA (Ecstacy), Urine Neg (Neg); Methadone, Urine Neg (Neg); Opiate, Urine Neg (Neg); Phencyclidine, Urine Neg (Neg)
[2022-09-30 23:49] LABS: Acetaminophen < 3 ug/ml (10-30); Salicylate < 3.0 mg/dl (3.0-30)
--- NOTE | 2022-10-01 00:52 | Emergency Department Note ---
Impression & Plan Suicidal ideation Admit to [facility]. ED Provider Note NAME: NUSRAT MILLER AGE: 57 SEX: F ARRIVES VIA: Walk-In INFORMANT: Patient ED PROVIDER(S): Anabel Kimble DO CHIEF COMPLAINT: Suicidal thoughts with plan PLAN: Disposition: Admit to [facility]. Condition: Fair MEDICAL DECISION MAKING: This is a 57-year-old female patient with history of anxiety and depression who presents to the emergency department with thoughts of hanging herself or shooting herself. The patient called crisis and they directed her here for evaluation. The patient is willing to admit herself voluntarily for inpatient p sychiatric care. Patient had laboratory studies drawn and was noted to be somewhat dehydrated. She was encouraged to drink plenty of clear liquids. She had admitted to only having a can of soup yesterday and not taking much in the day before. The patient was medically cleared. The patient was evaluated by the ED psychiatric case repairer. She is willing to admit herself voluntarily and was evaluated by staff from [facility]. They have accepted her to their unit. Triage Nursing notes reviewed and agree with them. Vital Signs: reviewed and remarkable for no significant abnormalities Differential diagnosis: Mood disorder, thought disorder, Diagnostics interpreted by me: Laboratory studies: See below HPI: 57/F arrives for evaluation of suicidal ideation. The patient explains that she feels broken and just wants to wait out. She explains that the half- sister of her oldest daughter recently ended up on her doorstep and this has been somewhat overwhelming for her. She feels very hopeless. She has become increasingly depressed and now suicidal with thoughts of wanting to shoot herself or hang herself. The patient has a history of alcohol abuse but has been sober for 16 years. She has thought of drinking alcohol over the past 5 days but she has not. PAST MEDICAL HISTORY:Diabetes with significant neuropathy; coronary artery disease with 4 previous stents placed; anxiety; depression; previous history of alcohol abuse-16 years sober PAST SURGICAL HISTORY:See Below FAMILY HISTORY:See Below SOCIAL HISTORY:Lives with her HOME MEDICATIONS:See list ALLERGIES:Penicillin VITALS:See Below PHYSICAL EXAMINATION: HEENT: Head - normocephalic and atraumatic. Pupils are equal, round, and reactive to light. Extraocular eye muscles are intact, and sclera are anicteric. Nose - moist nasal mucosa without discharge. Mouth - moist buccal mucosa. Oropharynx is nonerythematous and there is no tonsillar exudate or emilio ma noted. Neck: Supple; no cervical lymphadenopathy or thyromegaly. Heart: Regular rate and rhythm. There is a normal S1 and S2 with no murmurs, clicks, or gallops appreciated. Lungs: Clear to auscultation bilaterally with no wheezes, rales, or rhonchi. Abdomen: Soft, completely nontender, nondistended, with good bowel sounds. There are no palpable pulsatile masses or hepatosplenomegaly. There is no guarding, rigidity, or rebound noted. Extremities: No evidence of cyanosis, clubbing, or edema. There are easily palpable peripheral pulses. Skin: warm and dry with good turgor and no rashes. Psych: Patient appears depressed. She has a flat affect. She admits to suicidal thoughts with a plan. ED COURSE: Times/Reassessments: 2340: Patient was evaluated in room 87. A complete history and physical was performed. Laboratory studies were drawn as above. The patient is willing to admit herself voluntarily. Anabel Kimble DO Past Med/Surg History Medical History (Updated 10/01/22 @ 03:55 by Anabel Kimble DO) Cough Diabetes Family History Other No significant family history Social History Smoking Status: Current some day smoker Tobacco Type: Cigarettes Preferred Language: Yoruba Communication Ability: Effective Key Punch Teacher Required: No Beliefs That Will Affect Care: None Feels Safe at Home: Yes Gender Identity: Female Assistive Devices: Denture - Upper, Denture - Lower and Glasses Allergies Allergies Allergy/AdvReac Type Severity Reaction Status Date / Time Penicillins Allergy Intermediate ITCHY RASH Verified 07/28/21 10:14 ALL OVER BODY Home Meds Home Medications Medication Instructions Recorded Confirmed acetaminophen 500 mg tablet 500 mg PO Q6H PRN Pain 03/24/19 09/30/22 (Tylenol Extra Strength) aspirin 81 mg tablet,delayed 81 mg PO QAM 03/24/19 10/01/22 release (Adult Low Dose Aspirin) citalopram 40 mg tablet 40 mg PO QAM 03/24/19 10/01/22 ibuprofen 200 mg tablet 600 mg PO Q6H PRN Pain 03/24/19 09/30/22 multivitamin 1 tab PO QAM 03/24/19 10/01/22 omega-3 fatty acids 1,000 mg 1,000 mg PO QAM 03/24/19 10/01/22 capsule (Fish Oil Concentrate) insulin degludec 100 unit/mL (3 40 unit subcut DAILY 07/22/21 10/01/22 mL) subcutaneous pen (Tresiba FlexTouch U-100 insulin) gabapentin 100 mg capsule 100 mg TID 09/30/22 10/01/22 furosemide 40 mg tablet 40 mg PO Q OTHER DAY 10/01/22 10/01/22 insulin aspart U-100 100 unit/mL subcut [facility] 10/01/22 subcutaneous solution (Novolog U-100 Insulin aspart) Previous Rx's Medication Instructions Recorded atorvastatin 80 mg tablet 80 mg PO QAM #90 tabs 07/28/21 clopidogrel 75 mg tablet (Plavix) 75 mg PO DAILY #90 tabs 03/18/22 lisinopril 2.5 mg tablet 2.5 mg PO QAM #90 tabs 08/24/22 Results & Data (ED) Vital Signs Vital Signs - 24 hr 09/30/22 22:26 10/01/22 01:01 Temperature 36.7 C Temperature Source Temporal Artery Scan Pulse Rate 98 H Pulse Rate [Left Finger] 76 Pulse Rhythm [Left Finger] Regular Pulse Strength [Left Finger] Normal Respiratory Rate 18 18 Respiratory Effort / Characteristics Non-Labored Spontaneous Non-Labored Spontaneous Respiratory Depth Normal Normal Respiratory Pattern Regular Blood Pressure 95/51 L Blood Pressure [Left Arm] 112/70 Blood Pressure Mean 65 Blood Pressure Mean [Left Arm] 84 Blood Pressure Position Sitting Blood Pressure Position [Left Arm] Sitting Pulse Oximetry 98 99 Oxygen Delivery Method Room Air Room Air Sepsis Recent Fever Within 48 Hours No Sepsis New/Unexplained Change in Mental Status No Sepsis Action Taken by Nursing No Action Required Laboratory Data 09/30/22 22:48 09/30/22 22:48 Lab Results 09/30/22 09/30/22 09/30/22 Range/Units 22:45 22:45 22:45 WBC (4.8-10.8) K/ul RBC (4.20-5.40) M/uL Hgb (12.0-16.0) g/dl Hct (37.0-47.0) % MCV (80.0-100.0) fL MCH (25.0-34.0) pg MCHC (32.0-36.0) g/dL RDW Std Deviation (36.4-46.3) fL RDW Coeff of Ariel (11.5-14.5) % Plt Count (130-400) K/uL MPV (9.4-12.4) fL Immature Gran % (Auto) % Neut % (Auto) % Lymph % (Auto) % [place] % (Auto) % Eos % (Auto) % Baso % (Auto) % Neut # (Auto) (1.40-6.50) K/uL Lymph # (Auto) (1.2-3.4) K/uL [place] # (Auto) (0.11-0.59) K/uL Eos # (Auto) (0-0.50) K/uL Baso # (Auto) (0-0.2) K/uL Immature Gran # (Auto) (0.01-0.20) K/uL Sodium (136-145) mmol/L Potassium (3.5-5.1) mmol/L Chloride (98-107) mmol/L Carbon Dioxide (21-32) mmol/L Anion Gap (3-11) BUN (6-23) mg/dl Creatinine (0.6-1.2) mg/dl Est Cr Clr Drug Dosing ml/min Est GFR ( Amer) ml/min Est GFR (Non-Af Amer) ml/min BUN/Creatinine Ratio (10-20) Glucose (70-99(Fasting)) mg/dl Calcium (8.6-10.3) mg/dl Total Bilirubin (0.2-1.0) mg/dl AST (13-39) U/L ALT (7-52) U/L Alkaline Phosphatase (34-104) U/L Total Protein (6.0-8.3) gm/dl Albumin (3.4-5.0) gm/dl Globulin (2.5-4.0) gm/dl Albumin/Globulin Ratio (0.9-2) TSH (0.300-4.500) uIu/ml Urine Color Yellow Urine Appearance Turbid A (Clear) Urine pH 5.0 (4.5-7.5) Ur Specific [place] 1.020 (1.000-1.030) Urine Protein 1+ H (Negative) Urine Glucose (UA) 3+ H (Negative) Urine Ketones Trace H (Negative) Urine Blood 2+ H (Negative) Urine Nitrite Negative (Negative) Urine Bilirubin Negative (Negative) Urine Urobilinogen Negative (Negative) Ur Leukocyte Esterase 3+ H (Negative) Urine WBC (Auto) >30 H (0-5) /hpf Urine RBC (Auto) 0-4 (0-4) /hpf U Hyaline Cast (Auto) 1-5 (0-5) /lpf U Epithel Cells (Auto) >30 H (0-5) /lpf Urine Bacteria (Auto) 4+ H (Negative) Urine Yeast Not Reportable Salicylates (3.0-30) mg/dl Urine Opiates Screen Neg (Neg) Ur Methadone, Qual Neg (Neg) Acetaminophen (10-30) ug/ml Urine Barbiturates Neg (Neg) Ur Phencyclidine (PCP) Neg (Neg) U Amphetamin/Meth Scrn Neg (Neg) MDMA (Ecstasy) Screen Neg (Neg) U Benzodiazepines Scrn Neg (Neg) Ur Cocaine Metabolite Neg (Neg) U Marijuana (THC) Screen Pos H (Neg) Ethyl Alcohol mg/dL (<10.0) mg/dl SARS-CoV-2, RNA, NAAT NEGATIVE (NEGATIVE) 09/30/22 09/30/22 09/30/22 Range/Units 22:48 22:48 22:48 WBC 10.57 (4.8-10.8) K/ul RBC 3.76 L (4.20-5.40) M/uL Hgb 12.1 (12.0-16.0) g/dl Hct 34.8 L (37.0-47.0) % MCV 92.6 (80.0-100.0) fL MCH 32.2 (25.0-34.0) pg MCHC 34.8 (32.0-36.0) g/dL RDW Std Deviation 42.8 (36.4-46.3) fL RDW Coeff of Ariel 12.7 (11.5-14.5) % Plt Count 385 (130-400) K/uL MPV 10.3 (9.4-12.4) fL Immature Gran % (Auto) 0.3 % Neut % (Auto) 74.0 % Lymph % (Auto) 19.6 % [place] % (Auto) 5.4 % Eos % (Auto) 0.5 % Baso % (Auto) 0.2 % Neut # (Auto) 7.83 H (1.40-6.50) K/uL Lymph # (Auto) 2.07 (1.2-3.4) K/uL [place] # (Auto) 0.57 (0.11-0.59) K/uL Eos # (Auto) 0.05 (0-0.50) K/uL Baso # (Auto) 0.02 (0-0.2) K/uL Immature Gran # (Auto) 0.03 (0.01-0.20) K/uL Sodium 136 (136-145) mmol/L Potassium 3.5 (3.5-5.1) mmol/L Chloride 102 (98-107) mmol/L Carbon Dioxide 22 (21-32) mmol/L Anion Gap 12 H (3-11) BUN 27 H (6-23) mg/dl Creatinine 1.33 H (0.6-1.2) mg/dl Est Cr Clr Drug Dosing 43.0 ml/min Est GFR ( Amer) 50.9 ml/min Est GFR (Non-Af Amer) 44.0 ml/min BUN/Creatinine Ratio 20.3 H (10-20) Glucose 83 (70-99(Fasting)) mg/dl Calcium 9.3 (8.6-10.3) mg/dl Total Bilirubin 0.4 (0.2-1.0) mg/dl AST 16 (13-39) U/L ALT 16 (7-52) U/L Alkaline Phosphatase 184 H (34-104) U/L Total Protein 8.1 (6.0-8.3) gm/dl Albumin 4.4 (3.4-5.0) gm/dl Globulin 3.7 (2.5-4.0) gm/dl Albumin/Globulin Ratio 1.2 (0.9-2) TSH 1.047 (0.300-4.500) uIu/ml Urine Color Urine Appearance (Clear) Urine pH (4.5-7.5) Ur Specific [place] (1.000-1.030) Urine Protein (Negative) Urine Glucose (UA) (Negative) Urine Ketones (Negative) Urine Blood (Negative) Urine Nitrite (Negative) Urine Bilirubin (Negative) Urine Urobilinogen (Negative) Ur Leukocyte Esterase (Negative) Urine WBC (Auto) (0-5) /hpf Urine RBC (Auto) (0-4) /hpf U Hyaline Cast (Auto) (0-5) /lpf U Epithel Cells (Auto) (0-5) /lpf Urine Bacteria (Auto) (Negative) Urine Yeast Salicylates (3.0-30) mg/dl Urine Opiates Screen (Neg) Ur Methadone, Qual (Neg) Acetaminophen (10-30) ug/ml Urine Barbiturates (Neg) Ur Phencyclidine (PCP) (Neg) U Amphetamin/Meth Scrn (Neg) MDMA (Ecstasy) Screen (Neg) U Benzodiazepines Scrn (Neg) Ur Cocaine Metabolite (Neg) U Marijuana (THC) Screen (Neg) Ethyl Alcohol mg/dL (<10.0) mg/dl SARS-CoV-2, RNA, NAAT (NEGATIVE) 09/30/22 09/30/22 Range/Units 22:48 22:48 WBC (4.8-10.8) K/ul RBC (4.20-5.40) M/uL Hgb (12.0-16.0) g/dl Hct (37.0-47.0) % MCV (80.0-100.0) fL MCH (25.0-34.0) pg MCHC (32.0-36.0) g/dL RDW Std Deviation (36.4-46.3) fL RDW Coeff of Ariel (11.5-14.5) % Plt Count (130-400) K/uL MPV (9.4-12.4) fL Immature Gran % (Auto) % Neut % (Auto) % Lymph % (Auto) % [place] % (Auto) % Eos % (Auto) % Baso % (Auto) % Neut # (Auto) (1.40-6.50) K/uL Lymph # (Auto) (1.2-3.4) K/uL [place] # (Auto) (0.11-0.59) K/uL Eos # (Auto) (0-0.50) K/uL Baso # (Auto) (0-0.2) K/uL Immature Gran # (Auto) (0.01-0.20) K/uL Sodium (136-145) mmol/L Potassium (3.5-5.1) mmol/L Chloride (98-107) mmol/L Carbon Dioxide (21-32) mmol/L Anion Gap (3-11) BUN (6-23) mg/dl Creatinine (0.6-1.2) mg/dl Est Cr Clr Drug Dosing ml/min Est GFR ( Amer) ml/min Est GFR (Non-Af Amer) ml/min BUN/Creatinine Ratio (10-20) Glucose (70-99(Fasting)) mg/dl Calcium (8.6-10.3) mg/dl Total Bilirubin (0.2-1.0) mg/dl AST (13-39) U/L ALT (7-52) U/L Alkaline Phosphatase (34-104) U/L Total Protein (6.0-8.3) gm/dl Albumin (3.4-5.0) gm/dl Globulin (2.5-4.0) gm/dl Albumin/Globulin Ratio (0.9-2) TSH (0.300-4.500) uIu/ml Urine Color Urine Appearance (Clear) Urine pH (4.5-7.5) Ur Specific [place] (1.000-1.030) Urine Protein (Negative) Urine Glucose (UA) (Negative) Urine Ketones (Negative) Urine Blood (Negative) Urine Nitrite (Negative) Urine Bilirubin (Negative) Urine Urobilinogen (Negative) Ur Leukocyte Esterase (Negative) Urine WBC (Auto) (0-5) /hpf Urine RBC (Auto) (0-4) /hpf U Hyaline Cast (Auto) (0-5) /lpf U Epithel Cells (Auto) (0-5) /lpf Urine Bacteria (Auto) (Negative) Urine Yeast Salicylates < 3.0 L (3.0-30) mg/dl Urine Opiates Screen (Neg) Ur Methadone, Qual (Neg) Acetaminophen < 3 L (10-30) ug/ml Urine Barbiturates (Neg) Ur Phencyclidine (PCP) (Neg) U Amphetamin/Meth Scrn (Neg) MDMA (Ecstasy) Screen (Neg) U Benzodiazepines Scrn (Neg) Ur Cocaine Metabolite (Neg) U Marijuana (THC) Screen (Neg) Ethyl Alcohol mg/dL < 10.0 (<10.0) mg/dl SARS-CoV-2, RNA, NAAT (NEGATIVE) Discharge Plan Visit Data Chief Complaint: Mental Health Evaluation Stated Complaint: MENTAL HEALTH EVALUATION ED Provider: Anabel Kimble Discharge Problem: Suicidal ideation Patient Disposition: Admitted As Inpatient Discharge Instructions Interventions: ED Discharge Assessment Last Done: 10/01/22 02:32
[2022-10-01] MEDS ORDERED: SODIUM CHLORIDE 0.65% NA SOLN 45 ML (OCEAN) PRN (01:56)
[2022-10-01] MEDS ORDERED: ALUMINUM/MAGNESIUM SUSP 30 ML UDC PO PRN (01:56)
[2022-10-01] MEDS ORDERED: hydrOXYzine HCl 25 MG TAB PO PRN ×2 (01:56)
[2022-10-01] MEDS ORDERED: MAGNESIUM HYDROXIDE SUSP 30 ML UDC PO PRN (01:56)
[2022-10-01] MEDS ORDERED: ACETAMINOPHEN 325 MG TAB PO PRN (01:56)
[2022-10-01] MEDS ORDERED: BISMUTH SUBSALICYLATE LIQD 236 ML PO PRN (01:56)
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
[2022-10-01] MEDS ORDERED: ACETAMINOPHEN 500 MG TAB PO PRN (12:27)
[2022-10-01] MEDS ORDERED: IBUPROFEN 600 MG TAB PO PRN (12:27)
[2022-10-01] MEDS ORDERED: CITALOPRAM 40 MG TAB PO SCH (12:30)
[2022-10-01] MEDS: ASPIRIN 81 MG ECTAB PO SCH (12:55)
[2022-10-01] MEDS: ATORVASTATIN 40 MG TAB PO SCH (12:55)
[2022-10-01] MEDS: FUROSEMIDE 40 MG TAB PO SCH (12:58)
[2022-10-01] MEDS: CLOPIDOGREL BISULFATE 75 MG TAB PO SCH (12:58)
[2022-10-01] MEDS: lisinopril 2.5 MG TAB PO SCH (13:08)
[2022-10-01] MEDS: OMEGA-3 (PURIFIED FISH OIL) 1 GM CAP PO SCH (13:09)
[2022-10-01] MEDS: GABAPENTIN 100 MG CAP PO SCH ×2 (13:09→21:23)
[2022-10-01] MEDS: MULTIVITAMIN TAB PO SCH (13:10)
[2022-10-01] MEDS ORDERED: PHARMACY GLYCEMIC MGMT CONSULT PRN (15:31)
[2022-10-01] MEDS ORDERED: GLUCOSE 40% GEL 15 GM TUBE PO PRN (15:45)
[2022-10-01] MEDS ORDERED: GLUCAGON FOR INJ 1 MG VIAL IM PRN (15:45)
[2022-10-01] MEDS ORDERED: DEXTROSE 50% 50 ML SYRINGE IV PRN (15:45)
[2022-10-01] MEDS ORDERED: LANTUS PER UNIT CHARGE SQ ONE (15:45)
[2022-10-01] MEDS ORDERED: GLUCOSE 10 TAB/TUBE PO PRN (15:45)
[2022-10-01] MEDS: INSULIN ASPART PER UNIT CHARGE SC SCH ×2 (18:05→21:24)
[2022-10-01] MEDS ORDERED: LANTUS PER UNIT CHARGE SQ SCH (22:00)
[2022-10-02] MEDS: ASPIRIN 81 MG ECTAB PO SCH (08:53)
[2022-10-02] MEDS: ATORVASTATIN 40 MG TAB PO SCH (08:53)
[2022-10-02] MEDS: CLOPIDOGREL BISULFATE 75 MG TAB PO SCH (08:54)
[2022-10-02] MEDS: GABAPENTIN 100 MG CAP PO SCH ×3 (08:55→21:05)
[2022-10-02] MEDS: OMEGA-3 (PURIFIED FISH OIL) 1 GM CAP PO SCH (08:55)
[2022-10-02] MEDS: MULTIVITAMIN TAB PO SCH (08:56)
[2022-10-02] MEDS: lisinopril 2.5 MG TAB PO SCH (09:00)
[2022-10-02] MEDS ORDERED: DULoxetine HCL 20 MG CAP PO SCH (09:00)
[2022-10-02] MEDS ORDERED: CITALOPRAM 20 MG TAB PO SCH (09:00)
[2022-10-02] MEDS: INSULIN ASPART PER UNIT CHARGE SC SCH ×4 (09:50→21:12)
--- NOTE | 2022-10-02 14:50 | Pharmacy Report ---
Pharmacy Glycemic Short Note 2 - Date of Service October 02, 2022 - Glycemic Short BSG Results (Last 24 hours): 10/01/22 10/01/22 10/02/22 16:39 20:53 06:24 POC Glucose 349 H* 224 H 140 H 10/02/22 10/02/22 08:38 12:28 POC Glucose 131 H 205 H OUTPATIENT ANTIDIABETIC REGIMEN: * Tresiba 40 units daily, Novolog CR 15g/2 units ASSESSMENT: * 57 year old admitted to U - Type 1 diabetic. Pharmacy consulted for glycemic assistance * Patient received total of 57 units of insulin yesterday, of which 40 units were basal insulin * Fasting BSG 140 mg/dL - continue same basal insulin. Continue same CF/CR for now PLAN FOR INPATIENT GLYCEMIC CONTROL: * Hold outpatient oral diabetes medications * Basal insulin * Lantus 40 units daily * Bolus insulin * NovoLog per scale ACHS or Q6hrs while NPO * Goal Range: Low 110 mg/dL - High 140 mg/dL * Correction Factor: 30 mg/dL/unit * Nutritional / Prandial insulin per carb ratio of 1 unit per 10 grams CHO consumed
[2022-10-02] MEDS ORDERED: LANTUS PER UNIT CHARGE SQ SCH (18:00)
--- NOTE | 2022-10-02 23:29 | Psychiatric Progress Note ---
Date of Service October 02, 2022 Impression / Recommendations Impression Cynthia Miller is a 57 year old woman with a history of depression and anxiety who was admitted for worsening depression and SI with plans of hanging herself or shooting herself. The patient is deemed unstable and requires psychiatric hospitalization for diagnostic clarification, safety and stabilization, medication management and development of further coping skills. 10/02/2025: Pt reports significant change in symptoms, specifically that she is not having any suicidal thoughts, "feeling less negative". She attributes this largely to the psychotherapy groups here. Discussed likely benefit of continuing after d ischarge, but that often it is difficulty to find outpatient groups. Has noted no problems with the start of cross-titration from citalopram to duloxetine (today on 20 mg of each). Discussed how aggressive she would like to be with this ("let's move ahead fast"). 10/01/2022: Discussed medication treatment options in detail including SSRIs, SNRIs, Wellbutrin. Discussed risks, benefits and alternatives. Patient would like to start and consented to duloxetine for MDD and neuropathic pain. Reviewed side effects including but not limited to: GI, GRANADOS, sexual side effects, diaphoresis, and elevated BP/HR. (1) MDD (major depressive disorder), recurrent episode, severe: (2) Type 1 diabetes: (3) Suicidal ideation: Plan 10/02/2022: * stop citalopram tomorrow * increase duloxetine to 40 mg daily tomorrow 10/01/2022: The patient was admitted to the [facility] ([facility]) on q15 min checks (behavioral with suicide precautions) for safety. The patient will participate in group, recreational, and milieu therapies and will be offered additional individual and family sessions as clinically appropriate. -Begin cross-taper from citalopram 40mg daily to duloxetine -Start duloxetine 20mg qd tomorrow and reduce citalopram to 20mg qd tomorrow Inventory Assets Strengths: supportive relationships, willing to get treatment Needs: safety and stabilization, medication adjustment, additional coping skills, increased outpatient services Suicide Risk Level Suicide Risk Level: Moderate (q15 min suicide checks) (severe depression with SI with plan prior to admission but feels safe in the hospital, able to safety contract and agrees to let nursing/staff know should they develop plan, intent or feel unable to remain safe. ) Suicide Risk Level Comments: High-Moderate due to severe depression with SI with plan prior to admission but feels safe in the hospital, able to safety contract and agrees to let nursing/staff know should they develop plan, intent or feel unable to remain safe. Risk Factors Assessment Male: No Do You Have Access To A Gun?: No (guns have been secured by her in locked safe she has no access to ) Health Problems: Yes Mental Health Diagnoses: Yes Substance Use Disorders: No Previous Attempt: No Family History of Suicide: No Previous Psychiatric Hospitalization: No Hopelessness: Yes Protective Factors Assessment Employed: No (disabled) Stable Relationships: Yes Supportive Family: Yes Interval History Identifying Information CYNTHIA MILLER is a 57-year-old F who currently lives in [place] with her , adult daughter and adult step-daughter's half-sister, has a history of depression and anxiety, and was admitted on 10/01/22 01:56 on a 201 voluntary commitment for worsening depression and SI with plans. Chief Complaint "Things are going better". Review of Systems Sleep Information Total Hours of Sleep: 7 Sleep Comments: Late admission overnight Meal Information Percent Meal Consumed - Breakfast: 60 Percent Meal Consumed - Lunch: 50 Percent Meal Consumed - Dinner: 90 Subjective Subjective Patient was seen & assessed and interval progress reviewed with nursing and social work Physical Exam Psychiatric Orientation: alert, oriented to person, oriented to place and oriented to time Apperance: appropriately dressed and appropriately groomed Eye Contact: good eye contact Motor Behavior: no abnormal motor movements Speech: normal rate/rhythm/volume of speech Affect: + depressed affect and + anxious affect Mood: + depressed mood and + anxious mood Thought Process: goal directed thought process Thought Content: reality based without delusions Suicidal Thoughts: denies suicidal thoughts, denies suicidal plan and denies suicidal intent Homicidal Thoughts: denies homicidal thoughts Hallucinations: no auditory hallucinations and no visual hallucinations Cognition: recent memory grossly intact, remote memory grossly intact, attention grossly intact and language grossly intact Estimated Intelligence: consistent with education level Insight: + fair insight Judgment: good judgement Vital Signs (Past 24 Hours) Last Vital Signs Temp 36.2 C L 10/02/22 20:00 Pulse 99 H 10/02/22 12:33 Resp 16 10/02/22 06:39 BP 102/65 10/02/22 12:33 Pulse Ox 99 10/01/22 02:52 O2 Del Method Room Air 10/01/22 02:52 Results & Data ([facility]) Laboratory Results Laboratory Results - last 24 hr 10/02/22 10/02/22 10/02/22 06:24 08:38 12:28 POC Glucose 140 H 131 H 205 H 10/02/22 10/02/22 17:19 20:19 POC Glucose 203 H 194 H Current Inpatient Medications Current Inpatient Medications: Current Inpatient Medications Acetaminophen (Acetaminophen 500 Mg Tab) 500 mg PO Q6H PRN PRN Reason: Pain Stop: 10/31/22 12:26 Al Hydrox/Mg Hydrox/Simethicone (Aluminum/Magnesium Susp 30 Ml Udc) 30 ml PO Q4H PRN PRN Reason: GI Upset Stop: 10/31/22 01:55 Aspirin (Aspirin 81 Mg Ectab) 81 mg PO QAM [facility] Stop: 10/31/22 12:29 Last Admin: 10/02/22 08:53 Dose: 81 mg Atorvastatin Calcium (Atorvastatin 40 Mg Tab) [facility] [place] Stop: 10/31/22 12:29 Last Admin: 10/02/22 08:53 Dose: 80 mg Bismuth Subsalicylate (Bismuth Subsalicylate Liqd 236 Ml) 15 ml PO PRN PRN PRN Reason: Loose Stool Stop: 10/31/22 01:55 Clopidogrel Bisulfate (Clopidogrel Bisulfate 75 Mg Tab) 75 mg PO DAILY [facility] Stop: 10/31/22 12:29 Last Admin: 10/02/22 08:54 Dose: 75 mg Dextrose (Dextrose 50% 50 Ml Syringe) 25 - 50 ml IV UD PRN; Protocol PRN Reason: Hypoglycemia Protocol Stop: 10/31/22 15:44 Duloxetine HCl (Duloxetine Hcl 20 Mg Cap) 40 mg PO QAM [facility] Stop: 11/02/22 08:59 Fish Oil (Concepcion-3 (Purified Fish Oil) 1 Gm Cap) 1 gm PO QAM [facility] Stop: 10/31/22 12:44 Last Admin: 10/02/22 08:55 Dose: 1 gm Furosemide (Furosemide 40 Mg Tab) 40 mg PO Q2D@0900 [facility] Stop: 10/31/22 12:29 Last Admin: 10/01/22 12:58 Dose: 40 mg Gabapentin (Gabapentin 100 Mg Cap) 100 mg PO TID JUNE Stop: 10/31/22 13:59 Last Admin: 10/02/22 21:05 Dose: 100 mg Glucagon (Glucagon For Inj 1 Mg Vial) 1 mg IM UD PRN; Protocol PRN Reason: Hypoglycemia Protocol Stop: 10/31/22 15:44 Glucose (Glucose 40% Gel 15 Gm Tube) 15 - 30 gm PO UD PRN; Protocol PRN Reason: Hypoglycemia Protocol Stop: 10/31/22 15:44 Glucose (Glucose 10 Tab/Tube) 4 - 8 tab PO UD PRN; Protocol PRN Reason: Hypoglycemia Protocol Stop: 10/31/22 15:44 Hydroxyzine HCl (Hydroxyzine Hcl 25 Mg Tab) 50 mg PO HSZ PRN PRN Reason: Insomnia Stop: 10/31/22 01:55 Hydroxyzine HCl (Hydroxyzine Hcl 25 Mg Tab) 25 mg PO Q4H PRN PRN Reason: Anxiety Stop: 10/31/22 01:55 Ibuprofen (Ibuprofen 600 Mg Tab) 600 mg PO Q6H PRN PRN Reason: Pain Stop: 10/31/22 12:26 Insulin Aspart (Insulin Aspart Per Unit Charge) 0 units SC ACHS [facility] Stop: 10/31/22 17:14 Last Admin: 10/02/22 21:12 Dose: 4 units Insulin Glargine (Lantus Per Unit Charge) 40 units SQ DAILY@1800 [facility] Stop: 11/01/22 17:59 Last Admin: 10/02/22 18:06 Dose: 40 units Lisinopril (Lisinopril 2.5 Mg Tab) 2.5 mg PO QAM [facility] Stop: 10/31/22 12:29 Last Admin: 10/02/22 09:00 Dose: Not Given Magnesium Hydroxide (Magnesium Hydroxide Susp 30 Ml Udc) 30 ml PO DAILY PRN PRN Reason: Constipation Stop: 10/31/22 01:55 Miscellaneous (Carbohydrates For Hypoglycemia ) 15 - 30 gm PO UD PRN PRN Reason: Hypoglycemia Treatment Stop: 10/31/22 15:44 Miscellaneous Information (Pharmacy Glycemic Mgmt Consult) 1 each N/A UD PRN; Protocol PRN Reason: Consult Stop: 10/31/22 15:30 Multivitamins (Multivitamin Tab) 1 tab PO QAM [facility] Stop: 10/31/22 12:44 Last Admin: 10/02/22 08:56 Dose: 1 tab Sodium Chloride (Sodium Chloride 0.65% Na Soln 45 Ml ([place])) 1 - 2 sprays NA PRN PRN PRN Reason: Nasal Dryness/Congestion Stop: 10/31/22 01:55 Mental Health & Subst Abuse Tx Therapist Name of Therapist: [facility]'s Therapy Appointment Comment: [address], [address], [place] [address] Marine Driller Name of Marine Driller: None Post Discharge Appointments Primary Care Physician Name Of Family Doctor/PCP: [facility] Date of Future Appointment with PCP: 10/11/22 Time of Appointment with PCP: arrival 10:45 AM Provider Appointment Comment: [address], [place] [phone] (1) MDD (major depressive disorder), recurrent episode, severe Psychotic features: without psychotic features Qualified Code(s): F33.2 - Major depressive disorder, recurrent severe without psychotic features
[2022-10-03] MEDS: CARBOHYDRATES FOR HYPOGLYCEMIA PO PRN ×2 (06:38→07:06)
[2022-10-03] MEDS: ATORVASTATIN 40 MG TAB PO SCH (08:25)
[2022-10-03] MEDS: ASPIRIN 81 MG ECTAB PO SCH (08:25)
[2022-10-03] MEDS: CLOPIDOGREL BISULFATE 75 MG TAB PO SCH (08:26)
[2022-10-03] MEDS: FUROSEMIDE 40 MG TAB PO SCH (08:27)
[2022-10-03] MEDS: OMEGA-3 (PURIFIED FISH OIL) 1 GM CAP PO SCH (08:27)
[2022-10-03] MEDS: DULoxetine HCL 20 MG CAP PO SCH (08:27)
[2022-10-03] MEDS: GABAPENTIN 100 MG CAP PO SCH ×3 (08:28→21:13)
[2022-10-03] MEDS: MULTIVITAMIN TAB PO SCH (08:29)
[2022-10-03] MEDS: lisinopril 2.5 MG TAB PO SCH (08:29)
[2022-10-03 08:48] LABS: Marijuana Quant, GCMS Urine 746 ng/mL (<5)
[2022-10-03] MEDS ORDERED: DULoxetine HCL 20 MG CAP PO SCH (09:00)
[2022-10-03] MEDS: INSULIN ASPART PER UNIT CHARGE SC SCH ×4 (09:34→21:13)
--- NOTE | 2022-10-03 11:53 | Psychiatric Progress Note ---
Date of Service October 03, 2022 Impression / Recommendations Impression Cynthia Miller is a 57 year old woman with a history of depression and anxiety who was admitted for worsening depression and SI with plans of hanging herself or shooting herself. The patient is deemed unstable and requires psychiatric hospitalization for diagnostic clarification, safety and stabilization, medication management and development of further coping skills. 10/03/2022: Pt reports that she's still doing well. She continues to endorse no suicidal thoughts. She remains engaged in the milieu and treatment modalities. Tolerating duloxetine at current dose of 40 mg daily with no evidence of adverse effects. Citalopram has now been discontinued. 10/02/2025: Pt reports significant change in symptoms, specifically that she is not having any suicidal thoughts, "feeling less negative". She attributes this largely to the psychotherapy groups here. Discussed likely benefit of continuing after discharge, but that often it is difficulty to find outpatient groups. Has noted no problems with the start of cross-titration from citalopram to duloxetine (today on 20 mg of each). Discussed how aggressive she would like to be with this ("let's move ahead fast"). 10/01/2022: Discussed medication treatment options in detail including SSRIs, SNRIs, Wellbutrin. Discussed risks, benefits and alternatives. Patient would like to start and consented to duloxetine for MDD and neuropathic pain. Reviewed side effects including but not limited to: GI, GRANADOS, sexual side effects, diaphoresis, and elevated BP/HR. (1) MDD (major depressive disorder), recurrent episode, severe: (2) Type 1 diabetes: (3) Suicidal ideation: Plan 10/03/2022: * increase duloxetine to 40 mg daily, anticipate increase to 60 mg tomorrow * discontinue citalopram * likely discharge tomorrow 10/02/2022: * stop citalopram tomorrow * increase duloxetine to 40 mg daily tomorrow 10/01/2022: The patient was admitted to the [facility] ([facility]) on q15 min checks (behavioral with suicide precautions) for safety. The patient will participate in group, recreational, and milieu therapies and will be offered additional individual and family sessions as clinically approp dominick. -Begin cross-taper from citalopram 40mg daily to duloxetine -Start duloxetine 20mg qd tomorrow and reduce citalopram to 20mg qd tomorrow Inventory Assets Strengths: supportive relationships, willing to get treatment Needs: safety and stabilization, medication adjustment, additional coping skills, increased outpatient services Suicide Risk Level Suicide Risk Level: Low (q15 min observation checks) Suicide Risk Level Comments: denies any current suicidal thoughts Risk Factors Assessment Male: No Do You Have Access To A Gun?: No (guns have been secured by her in locked safe she has no access to ) Health Problems: Yes Mental Health Diagnoses: Yes Substance Use Disorders: No Previous Attempt: No Family History of Suicide: No Previous Psychiatric Hospitalization: No Hopelessness: Yes Protective Factors Assessment Employed: No (disabled) Stable Relationships: Yes Supportive Family: Yes Interval History Identifying Information CYNTHIA MILLER is a 57-year-old F who currently lives in [place] with her , adult daughter and adult step-daughter's half-sister, has a history of depression and anxiety, and was admitted on 10/01/22 01:56 on a 201 voluntary commitment for worsening depression and SI with plans. Chief Complaint "Pretty OK". Review of Systems Sleep Information Total Hours of Sleep: 6.5 Sleep Comments: Late admission overnight Meal Information Percent Meal Consumed - Breakfast: 100 Percent Meal Consumed - Lunch: 50 Percent Meal Consumed - Dinner: 90 Subjective Subjective Patient was seen & assessed and interval progress reviewed with nursing and social work Physical Exam Psychiatric Orientation: alert, oriented x 3, oriented to person, oriented to place and oriented to time Apperance: appropriately dressed and appropriately groomed Eye Contact: good eye contact Motor Behavior: no abnormal motor movements Speech: normal rate/rhythm/volume of speech Affect: + depressed affect and + anxious affect Mood: + depressed mood and + anxious mood Thought Process: goal directed thought process Thought Content: reality based without delusions Suicidal Thoughts: denies suicidal thoughts, denies suicidal plan and denies suicidal intent Homicidal Thoughts: denies homicidal thoughts Hallucinations: no auditory hallucinations and no visual hallucinations Cognition: recent memory grossly intact, remote memory grossly intact, attention grossly intact and language grossly intact Estimated Intelligence: consistent with education level Insight: good insight Judgment: good judgement Vital Signs (Past 24 Hours) Last Vital Signs Temp 36.7 C 10/03/22 06:48 Pulse 83 10/03/22 06:49 Resp 16 10/03/22 06:48 BP 103/63 10/03/22 06:49 Pulse Ox 99 03/24/23 02:52 O2 Del Method Room Air 10/01/22 02:52 Results & Data ([facility]) Laboratory Results Laboratory Results - last 24 hr 09/30/22 10/02/22 10/02/22 22:45 12:28 17:19 POC Glucose 205 H 203 H U Marijuana THC Carboxy 746 H Drug Screen Comment SEE NOTE 10/02/22 10/03/22 10/03/22 20:19 06:30 06:32 POC Glucose 194 H 69 L* 69 L* U Marijuana THC Carboxy Drug Screen Comment 10/03/22 10/03/22 10/03/22 06:57 06:59 07:25 POC Glucose 65 L* 65 L* 98 U Marijuana THC Carboxy Drug Screen Comment 10/03/22 09:08 POC Glucose 117 H U Marijuana THC Carboxy Drug Screen Comment Current Inpatient Medications Current Inpatient Medications: Current Inpatient Medications Acetaminophen (Acetaminophen 500 Mg Tab) 500 mg PO Q6H PRN PRN Reason: Pain Stop: 10/31/22 12:26 Al Hydrox/Mg Hydrox/Simethicone (Aluminum/Magnesium Susp 30 Ml Udc) 30 ml PO Q4H PRN PRN Reason: GI Upset Stop: 10/31/22 01:55 Aspirin (Aspirin 81 Mg Ectab) [facility] [place] Stop: 10/31/22 12:29 Last Admin: 10/03/22 08:25 Dose: 81 mg Atorvastatin Calcium (Atorvastatin 40 Mg Tab) 80 mg PO QAM [facility] Stop: 10/31/22 12:29 Last Admin: 10/03/22 08:25 Dose: 80 mg Bismuth Subsalicylate (Bismuth Subsalicylate Liqd 236 Ml) 15 ml PO PRN PRN PRN Reason: Loose Stool Stop: 10/31/22 01:55 Clopidogrel Bisulfate (Clopidogrel Bisulfate 75 Mg Tab) 75 mg PO DAILY [facility] Stop: 10/31/22 12:29 Last Admin: 10/03/22 08:26 Dose: 75 mg Dextrose (Dextrose 50% 50 Ml Syringe) 25 - 50 ml IV UD PRN; Protocol PRN Reason: Hypoglycemia Protocol Stop: 10/31/22 15:44 Duloxetine HCl (Duloxetine Hcl 20 Mg Cap) 40 [facility] [place] Stop: 11/02/22 08:59 Last Admin: 10/03/22 08:27 Dose: 40 mg Fish Oil ([place]-3 (Purified Fish Oil) 1 Gm Cap) 1 gm PO QAM [facility] Stop: 10/31/22 12:44 Last Admin: 10/03/22 08:27 Dose: 1 gm Furosemide (Furosemide 40 Mg Tab) 40 mg PO Q2D@0900 [facility] Stop: 10/31/22 12:29 Last Admin: 10/03/22 08:27 Dose: 40 mg Gabapentin (Gabapentin 100 Mg Cap) 100 mg PO TID JUNE Stop: 10/31/22 13:59 Last Admin: 10/03/22 08:28 Dose: 100 mg Glucagon (Glucagon For Inj 1 Mg Vial) 1 mg IM UD PRN; Protocol PRN Reason: Hypoglycemia Protocol Stop: 10/31/22 15:44 Glucose (Glucose 40% Gel 15 Gm Tube) 15 - 30 gm PO UD PRN; Protocol PRN Reason: Hypoglycemia Protocol Stop: 10/31/22 15:44 Glucose (Glucose 10 Tab/Tube) 4 - 8 tab PO UD PRN; Protocol PRN Reason: Hypoglycemia Protocol Stop: 10/31/22 15:44 Hydroxyzine HCl (Hydroxyzine Hcl 25 Mg Tab) 50 mg PO HSZ PRN PRN Reason: Insomnia Stop: 10/31/22 01:55 Hydroxyzine HCl (Hydroxyzine Hcl 25 Mg Tab) 25 mg PO Q4H PRN PRN Reason: Anxiety Stop: 10/31/22 01:55 Ibuprofen (Ibuprofen 600 Mg Tab) 600 mg PO Q6H PRN PRN Reason: Pain Stop: 10/31/22 12:26 Insulin Aspart (Insulin Aspart Per Unit Charge) 0 units SC ACHS [facility] Stop: 10/31/22 17:14 Last Admin: 10/03/22 09:34 Dose: 4 units Insulin Glargine (Lantus Per Unit Charge) 35 units SQ DAILY@1800 [facility] Stop: 11/02/22 17:59 Lisinopril (Lisinopril 2.5 Mg Tab) 2.5 mg PO QAM [facility] Stop: 10/31/22 12:29 Last Admin: 10/03/22 08:29 Dose: Not Given Magnesium Hydroxide (Magnesium Hydroxide Susp 30 Ml Udc) 30 ml PO DAILY PRN PRN Reason: Constipation Stop: 10/31/22 01:55 Miscellaneous (Carbohydrates For Hypoglycemia ) 15 - 30 gm PO UD PRN PRN Reason: Hypoglycemia Treatment Stop: 10/31/22 15:44 Last Admin: 10/03/22 07:06 Dose: 15 gm Miscellaneous Information (Pharmacy Glycemic Mgmt Consult) 1 each N/A UD PRN; Protocol PRN Reason: Consult Stop: 10/31/22 15:30 Multivitamins (Multivitamin Tab) 1 tab PO QAM [facility] Stop: 10/31/22 12:44 Last Admin: 10/03/22 08:29 Dose: 1 tab Sodium Chloride (Sodium Chloride 0.65% Na Soln 45 Ml ([place])) 1 - 2 sprays NA PRN PRN PRN Reason: Nasal Dryness/Congestion Stop: 10/31/22 01:55 Mental Health & Subst Abuse Tx Therapist Name of Therapist: [facility] The[facility]ist's Therapy Appointment Comment: [address], [address], [place] [address] Buffing Line Set Up Worker 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
--- NOTE | 2022-10-03 14:16 | Pharmacy Report ---
Pharmacy Glycemic Short Note 2 - Date of Service October 03, 2022 - Glycemic Short BSG Results (Last 24 hours): 10/02/22 10/02/22 10/03/22 17:19 20:19 06:30 POC Glucose 203 H 194 H 69 L* 10/03/22 10/03/22 10/03/22 06:32 06:57 06:59 POC Glucose 69 L* 65 L* 65 L* 10/03/22 10/03/22 10/03/22 07:25 09:08 12:29 POC Glucose 98 117 H 123 H OUTPATIENT ANTIDIABETIC REGIMEN: * Tresiba 40 units daily, Novolog CR 15g/2 units ASSESSMENT: 10/03 * Patient received total of 59 units of insulin yesterday, of which 40 units were basal insulin (home dose) * Fasting BSG 65 mg/dL - therefore will decrease basal slightly ~10% for tonight * No change to CF/CR 10/02 * 57 year old admitted to U - Type 1 diabetic. Pharmacy consulted for glycemic assistance * Patient received total of 57 units of insulin yesterday, of which 40 units were basal insulin * Fasting BSG 140 mg/dL - continue same basal insulin. Continue same CF/CR for now PLAN FOR INPATIENT GLYCEMIC CONTROL: * Hold outpatient oral diabetes medications * Basal insulin - decrease * Lantus 35 units daily * Bolus insulin * NovoLog per scale ACHS or Q6hrs while NPO * Goal Range: Low 110 mg/dL - High 140 mg/dL * Correction Factor: 30 mg/dL/unit * Nutritional / Prandial insulin per carb ratio of 1 unit per 10 grams CHO consumed
[2022-10-03] MEDS ORDERED: LANTUS PER UNIT CHARGE SQ SCH (18:00)
[2022-10-04] MEDS ORDERED: SEPTRA DS HOME PACK PO ONE (04:04)
[2022-10-04] MEDS: CARBOHYDRATES FOR HYPOGLYCEMIA PO PRN (07:59)
[2022-10-04] MEDS: ATORVASTATIN 40 MG TAB PO SCH (08:56)
[2022-10-04] MEDS: ASPIRIN 81 MG ECTAB PO SCH (08:56)
[2022-10-04] MEDS: CLOPIDOGREL BISULFATE 75 MG TAB PO SCH (08:57)
[2022-10-04] MEDS: MULTIVITAMIN TAB PO SCH (08:57)
[2022-10-04] MEDS: lisinopril 2.5 MG TAB PO SCH (08:58)
[2022-10-04] MEDS: GABAPENTIN 100 MG CAP PO SCH ×2 (08:58→14:09)
[2022-10-04] MEDS: DULoxetine HCL 20 MG CAP PO SCH (08:58)
[2022-10-04] MEDS: OMEGA-3 (PURIFIED FISH OIL) 1 GM CAP PO SCH (08:58)
[2022-10-04] MEDS: INSULIN ASPART PER UNIT CHARGE SC SCH (09:06)
[2022-10-04] MEDS ORDERED: DESTROY THIS MEDICATION ONE (11:49)
[2022-10-04] MEDS ORDERED: INSULIN ASPART PER UNIT CHARGE SC SCH (12:00)
--- NOTE | 2022-10-04 14:47 | Discharge Summary ---
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 Studies at Discharge: No Stand-Alone Forms: My [facility], Smoking Cessation Medications and DC Order Prescriptions: New duloxetine [Cymbalta] 20 mg Capsule,Delayed Release(Dr/Ec) 60 mg PO QAM 30 Days Qty: 90 0RF Continued clopidogrel [Plavix] 75 mg tablet 75 mg PO DAILY Qty: 90 1RF lisinopril 2.5 mg tablet 2.5 mg PO QAM Qty: 90 3RF atorvastatin 80 mg tablet 80 mg PO QAM Qty: 90 3RF Tresiba FlexTouch U-100 100 unit/mL (3 mL) insulin pen 40 unit subcut DAILY acetaminophen [Tylenol Extra Strength] 500 mg Tablet 500 mg PO Q6H PRN (Reason: Pain) ibuprofen 200 mg Tablet 600 mg PO Q6H PRN (Reason: Pain) multivitamin tablet 1 tab PO QAM omega-3 fatty acids [Fish Oil Concentrate] 1,000 mg capsule 1,000 mg PO QAM aspirin [Adult Low Dose Aspirin] 81 mg tablet,delayed release (DR/EC) 81 mg PO QAM gabapentin 100 mg capsule 100 mg TID furosemide 40 mg tablet 40 mg PO Q OTHER DAY Discontinued citalopram 40 mg tablet 40 mg PO QAM Discharge Orders: Discharge Order (Routine); Ordered 10/04/22 Ordered By: Wilberto Adler Admission Data Admit Date/Time: 10/01/22 01:56 Attending Provider: Sarah Huang Admit Provider: Sarah Huang Primary Care Provider: Jacob Allen Other Interventions: Discharge Summary Assessment (RN) Last Done: 10/04/22 12:38 PSY Interdisciplinary Discharge Planning Last Done: 10/04/22 12:40 Coding Level of Care Code 51669 D/C day mgmt > 30 min Diagnoses MDD (major depressive disorder), recurrent episode, severe F33.2 Psychotic features: without psychotic features Type 1 diabetes E10.9 Suicidal ideation R45.851 Time Spent (min) 36
--- NOTE | 2022-10-04 14:55 | Pharmacy Report ---
Pharmacy Glycemic Short Note 2 - Date of Service October 04, 2022 - Glycemic Short BSG Results (Last 24 hours): 10/03/22 10/03/22 10/04/22 17:00 20:21 07:55 POC Glucose 119 H 139 H 62 L* 10/04/22 08:15 POC Glucose 85 OUTPATIENT ANTIDIABETIC REGIMEN: * Tresiba 40 units daily, Novolog CR 15g/2 units ASSESSMENT: 10/04 * Fasting below goal this AM, patient to be discharged but if still present will reduce PM dose of lantus to 32 units * Continue current novolog parameters 10/03 * Patient received total of 59 units of insulin yesterday, of which 40 units were basal insulin (home dose) * Fasting BSG 65 mg/dL - therefore will decrease basal slightly ~10% for tonight * No change to CF/CR 10/02 * 57 year old admitted to [facility] - Type 1 diabetic. Pharmacy consulted for glycemic assistance * Patient received total of 57 units of insulin yesterday, of which 40 units were basal insulin * Fasting BSG 140 mg/dL - continue same basal insulin. Continue same CF/CR for now PLAN FOR INPATIENT GLYCEMIC CONTROL: * Hold outpatient oral diabetes medications * Basal insulin - decrease * Lantus 32 units daily * Bolus insulin * NovoLog per scale ACHS or Q6hrs while NPO * Goal Range: Low 110 mg/dL - High 140 mg/dL * Correction Factor: 30 mg/dL/unit * Nutritional / Prandial insulin per carb ratio of 1 unit per 10 grams CHO consumed
[2022-10-04] MEDS ORDERED: LANTUS PER UNIT CHARGE SQ ONE (15:14)
[2022-10-04] MEDS ORDERED: INSULIN ASPART PER UNIT CHARGE SC ONE (15:14)
[2022-10-04] MEDS ORDERED: LANTUS PER UNIT CHARGE SQ SCH ×2 (18:00)
[2022-10-04] MEDS ORDERED: SULFAMETHOXAZOLE/TRIMETHOPRIM DS 800/160MG TAB PO SCH (21:00)
== END 2022-10-04 15:15 | disposition home or self-care (01) | DRG 885 ==
LOC: ED 22:24 → 3S 10-01 01:56